=== PATIENT | male | born 1945 | race Caucasian/White ===

== ENCOUNTER → 2017-07-24 | Outpatient (CLI) | payer MEDICARE, BC | END | disposition home or self-care (01) | LOC: US 12:53 | DX: E04.1 Nontoxic single thyroid nodule (principal) | CPT/HCPCS: 10022; 60300; 76942; 88173; 88305 ==

== ENCOUNTER 2019-11-08 19:29 | Inpatient (IN) | payer MEDICARE, BC ==
[~2019-11-08] VITALS: Ht 182.9 cm; Wt 120.0 kg
[2019-11-08] MEDS ORDERED: CINN500C2 PO (20:49)
[2019-11-08] MEDS ORDERED: APIX5TAB PO (20:49)
[2019-11-08] MEDS ORDERED: GABA600T7 PO (20:49)
[2019-11-08] MEDS ORDERED: ATOR40TA59 PO (20:49)
[2019-11-08] MEDS ORDERED: MULT-505 PO (20:49)
[2019-11-08] MEDS ORDERED: LEVO50TA PO (20:49)
[2019-11-08] MEDS ORDERED: LISI-334 PO (20:49)
[2019-11-08] MEDS ORDERED: OMEG1CAP6 PO (20:49)
[2019-11-08] MEDS ORDERED: MEXI150C PO (20:49)
[2019-11-08] MEDS ORDERED: CARV25TA2 PO (20:49)
[2019-11-08 20:58] VITALS: BP 146/69
[2019-11-08] MEDS ORDERED: ONDANSETRON PF 4 MG/2 ML VIAL. IVP PRN (21:00)
[2019-11-08] MEDS ORDERED: MORPHINE SULFATE 4 MG/ML VIAL. IV PRN (21:00)
--- NOTE | 2019-11-08 22:00 | NUR ---
pt. administered 3.5 units of Novolog through his insulin pump after his blood sugar was checked. Blood sugar was 182.
[2019-11-08] MEDS: MORPHINE SULFATE 4 MG/ML VIAL. IV PRN (22:14)
[2019-11-08] MEDS: IV DEXTROSE 5 %-0.45 % NACL 1,000 ML IV SCH (22:14)
[2019-11-08 23:00] VITALS: BP 101/42
--- NOTE | 2019-11-08 23:16 | NUR ---
The patient, YOVANI FAUST, 74 y/o, M admitted by NIKKO BEASLEY MD, was given written information regarding hospital policies, unit procedures and contact persons. Pt. arrived on unit at 1850 by EMS. Call light placed within reach and bed in lowest position. Pt. is comfortable with his pain level. Will continue to monitor. Valuables were left in patient's room. Pt. refused to place any valuables with security.
[2019-11-09] VITALS (12 sets, daily range): BP systolic 74–141; BP diastolic 44–59
[2019-11-09 05:51] LABS: BASO % 0 % (0-3); EOS % 0 % (0-3); HEMATOCRIT 32.1 % (39.0-53.0); HEMOGLOBIN 10.9 g/dL (13.0-17.5); LYMPH # 0.7 x10^3/uL (1.0-4.8); LYMPH % 7 % (24-48); MEAN CORPUSCULAR HEMOGLOBIN 31 pg (25-35); MEAN CORPUSCULAR HGB CONC 34 g/dL (31-37); MEAN CORPUSCULAR VOLUME 92 fL (79-100); MONO # 0.6 x10^3/uL (0.0-1.1); MONO % 6 % (0-9); NEUT # 8.9 x10^3/uL (1.8-7.7); NEUT % 87 % (31-73); PLATELET COUNT 187 x10^3/uL (140-400); RED CELL DISTRIBUTION WIDTH 14.4 % (11.5-14.5); WHITE BLOOD COUNT 10.3 x10^3/uL (4.0-11.0)
[2019-11-09 06:06] LABS: ALBUMIN 2.8 g/dL (3.4-5.0); ALBUMIN/GLOBULIN RATIO 0.9 (1.0-1.7); CALCIUM 8.2 mg/dL (8.5-10.1); CREATININE 1.9 mg/dL (0.7-1.3); GFR 34.6; POTASSIUM 4.5 mmol/L (3.5-5.1); TOTAL BILIRUBIN 0.3 mg/dL (0.2-1.0)
[2019-11-09] MEDS: MORPHINE SULFATE 4 MG/ML VIAL. IV PRN ×2 (09:20→13:27)
[2019-11-09] MEDS ORDERED: IV NORMAL SALINE 500ML BAG 500 ML IV ONE (10:00)
[2019-11-09] MEDS ORDERED: PIPERACILLIN/TAZOBACTAM 2.25 GM in IV NORMAL SALINE 50ML 50 ML IV SCH ×3 (10:00)
[2019-11-09] MEDS ORDERED: DEXTROSE 50% 25 GM / 50ML DISP.SYRIN. IV PRN (10:15)
--- NOTE | 2019-11-09 10:16 | PN ---
DATE: 11/09/2019 SUBJECTIVE: The patient is resting, slightly propped up in bed, in no apparent respiratory distress. His right knee is in a splint. Pain is well controlled with morphine. His COVID test is not yet available. When I questioned him today, he said that Dr. Hartley has started him on a new medication, but he did not know the name of the medication. He stated that his pacemaker was interrogated about 2 weeks ago, but did not know the result. Has had an echocardiogram done on Sunday, but again he does not know the outcome of that. PHYSICAL EXAMINATION: GENERAL: When I saw him this morning, he looked somewhat pale. No jaundice, cyanosis or thyromegaly. No jugular venous distention. No lower limb edema. VITAL SIGNS: His heart rate was 65, blood pressure 100/47, temperature was 98.1, respiratory rate was 18 and oxygen saturation was 97%. HEAD, EYES, EARS, NOSE AND THROAT: Normocephalic, atraumatic. NECK: Supple. HEART: Showed normal first and second heart sounds with no gallop, rub or murmur. CHEST: Clear to auscultation. No crepitation or rhonchi. ABDOMEN: Distended, soft, nontender. NEUROLOGIC: He was grossly intact. EXTREMITIES: He has right below-knee amputation and his right knee is in a splint. His intake and output are incompletely recorded. LABORATORY DATA: His lab work this morning showed a white cell count of 10,300, hemoglobin 11, hematocrit 32, MCV 92, and platelet count of 187,000 with normal manual differential. Serum sodium was 141, potassium 4.5, chloride 105, bicarbonate 23, anion gap of 13, BUN 49, creatinine 1.9, estimated GFR was 34 mL per minute. His glucose was 200, calcium was 8.2. Total bilirubin, AST, ALT, alkaline phosphatase were normal. Total protein 6, albumin was 2.8. ASSESSMENT: This is a 74-year-old who fell in the Emergency Room on his way out, sustained open right distal femur fracture. The patient has multiple other medical problems including: A. Hypertension. B. Hyperlipidemia. C. Hypothyroidism. D. Peripheral neuropathy of both lower extremities. E. Coronary artery disease. F. Sick sinus syndrome, status post AICD; gastroesophageal reflux disease; chronic renal disease; osteomyelitis of right lower extremity, status post right below-knee amputation. He is also known to have trigeminal neuralgia. He has also acute on chronic kidney injury. His creatinine has risen from baseline of 1.4-1.5 to 2. PLAN: To continue with IV fluid, continue with pain management. Continue to monitor his blood sugar and we might have to switch him off his insulin infusion pump. Start him on insulin sliding scale and I have consulted the solutions consultant as he felt dizzy and fell while on his way back. There is no documentation that his orthostatics were measured in the Emergency Room and also start him on IV antibiotic, has an open distal femur fracture and consulted Infectious Disease. I did start him on linezolid 600 mg IV twice a day as well as Zosyn 2.25 grams IV q. 8 hourly. NIKKO BEASLEY MD DR: PETER/rossi JOB#: [id number] / [id number]
[2019-11-09 11:01] LABS: % BANDS 1 % (0-9); % LYMPHS 5 % (24-48); % MONOS 2 % (0-10); % SEGS 92 % (35-66); PLT ESTIMATE ADEQUATE (ADEQUATE)
--- NOTE | 2019-11-09 11:15 | HP ---
ADMIT DATE: 11/08/2019 HISTORY OF PRESENT ILLNESS: The patient is a 74-year-old male patient who presented to the Emergency Room of [facility] with a complaint of dizziness and lightheadedness. He was brought by EMS from home. The patient said he was in his garage workshop doing some wood work. He was sitting on a stool there. The patient said he was there for about 45 minutes. When he stood up from the stool, he became dizzy and lightheaded. He feels like he might pass out ____. The patient denied any chest pain or any headache. The patient then went inside the house. He was sweating profusely. The EMS was then called. They checked blood sugar, it was normal. The patient denied any headache. No weakness or numbness. No slurring of speech. By the time he got to the Emergency Room, he felt much better. He stated that in the workshop area in the garage was hotter than inside his house. He was evaluated in the Emergency Room, has had lab work which showed that his lab works are all within acceptable range. His blood pressure apparently was within normal range. He was given IV fluid and felt much better. He had a CT scan of his head that did not show any acute problem, had no neurological deficit. In the Emergency Room, has no chest pain or trouble breathing and a decision was made to discharge him home to follow with his primary care physician. He declined a wheelchair assistance and he and his was walking down the hallway and then tripped on his shoes and fell down on his knees. The patient has right below-knee amputation, has a prosthesis on. The patient was taken back to his room and he stated that he cannot straighten his right knee. The patient complained of pain in his right knee and left knee. Denied any upper extremity pain. No head or neck injury. On examining him, there was superficial skin contusion on his left knee. The patient can flex and extend his left knee without any problem. Examination of the right knee showed patellar deformity distracting distally. The patient cannot straighten his right knee. His distal femur was deformed, but no open wound. X-ray of both knees showed displaced fracture of the right distal femur on the right side and Dr. Garza was informed, who recommended transferring the patient to [facility]. He was swabbed for COVID test to be available before his surgery; however, it is still pending at the time of this dictation. The patient was admitted to [facility], kept n.p.o. from midnight, started on IV fluid and IV morphine as well as Zofran. He has an insulin infusion pump and we will do Accu-Cheks every 6 hours. PAST MEDICAL HISTORY: Significant for hypertension, hyperlipidemia, hypothyroidism, peripheral neuropathy of both lower extremities, coronary artery disease. He is also known to have sick sinus syndrome status post AICD, coronary artery disease status post stent deployment, gastroesophageal reflux disease, chronic renal disease, osteomyelitis of his right lower extremity requiring amputation. He is also known to have trigeminal neuralgia. PAST SURGICAL HISTORY: Significant for C5-C7 spinal surgery, status post cervical spine fusion x 2, status post insulin pump placement, thyroidectomy, and right below-knee amputation. ALLERGIES: HE IS ALLERGIC TO CARBAMAZEPINE AND OXAPROZIN. FAMILY HISTORY: He is only child. His father by committing suicide, however, he was known to have severe COPD and alcoholism. Mother at age of 75 because of brain tumor. SOCIAL HISTORY: He is , has 1 daughter. He does not smoke, drink alcohol or use any recreational drugs. REVIEW OF SYSTEMS: As per history of present illness. MEDICATIONS: He is currently on following medications: He is on apixaban 5 mg twice a day, atorvastatin calcium 40 mg at bedtime, omega-3 fatty acid 1000 mg twice a day, carvedilol 25 mg once a day, lisinopril 20 mg once a day, gabapentin 600 mg 3 times a day, furosemide 20 mg once a day, ranitidine 300 mg twice a day, Wolbach Thyroid he is now actually on levothyroxine 50 mcg once a day, multivitamin 1 tablet once a day, cinnamon bark 1000 mg once a day. PHYSICAL EXAMINATION: GENERAL: On arrival to the Emergency Department, he looked well and was clearly in no apparent respiratory distress, pale, but no jaundice, cyanosis or thyromegaly. No jugular venous distention. No lower limb edema. VITAL SIGNS: His heart rate was 72, blood pressure was 171/59, temperature was 97.5, respiratory rate was 18, and oxygen saturation was 98% on room air. HEAD, EYES, EARS, NOSE AND THROAT: Showed normocephalic, atraumatic. NECK: Supple. CARDIAC: Normal first and second heart sounds. No gallop or murmur. CHEST: Clear to auscultation. No crepitation or rhonchi. ABDOMEN: Distended, soft, nontender. NEUROLOGIC: He was awake, alert, responding appropriately. All cranial nerves intact. He moves upper extremities without difficulty. He was able to flex his left knee without difficulty. He was unable to flex his right knee with obvious deformity. LABORATORY DATA: X-ray of his right knee showed closed fracture of the right distal femur. His other lab work showed a white cell count 6300, hemoglobin 12.7, hematocrit 37.4, MCV 92 and platelet count 205,000 with normal manual differential. His serum sodium was 138, potassium 4.5, chloride 102, bicarbonate 26, anion gap of 10, BUN 44, creatinine 2, estimated GFR was 32 mL per minute. His glucose 137, calcium was 8.5, magnesium 2. Total bilirubin, AST, ALT, alkaline phosphatase were normal. His total protein was 6.8, albumin was 3.4. His beta natriuretic peptide was 625 and troponin was less than 0.017. His prothrombin time was 10.9, INR 1.1, APTT was 25. X-ray of his left knee showed normal alignment, no fracture, mild tricompartmental knee degenerative changes. On evaluation of knee joint, effusion is degraded because of positioning in the lateral view, vascular calcification, anterior knee soft tissue swelling. His right knee showed acute comminuted right distal femur fracture with posterior displacement and angulation of the distal fragment, potentially open fracture, extensive vascular calcification, postoperative changes, [id number] amputation, right knee degenerative changes. IMPRESSION: The patient has acute comminuted right distal femur fracture, right below-knee amputation, left anterior knee soft tissue swelling and therefore, the patient was admitted to [facility], was kept n.p.o. from midnight. We did consult Dr. Garza, started on IV fluid and IV morphine as well as Zofran. NIKKO BEASLEY MD DR: PETER/rossi JOB#: [id number] / [id number]
[2019-11-09] MEDS: PIPERACILLIN/TAZOBACTAM 2.25 GM in IV NORMAL SALINE 50ML 50 ML IV SCH ×3 (11:26→22:31)
[2019-11-09] MEDS: IV DEXTROSE 5 %-0.45 % NACL 1,000 ML IV SCH (11:28)
[2019-11-09] MEDS: INSULIN LISPRO 300 UNITS/3 ML VIAL. SQ SCH ×2 (12:00→17:00)
--- NOTE | 2019-11-09 13:02 | PDOC2 ---
CONSULT Date of Consult Date of Consult DATE: 11/09/19 TIME: 12:56 Reason for Consult Reason for Consult: Right distal femur fracture Referring Physician Referring Physician: Erick Identification/Chief Complaint Chief Complaint Right knee pain Source Source: Patient History of Present Illness Reason for Visit: Patient was being evaluated in [facility] emergency department yesterday for some dizziness, and upon his discharge he tripped and fell, noting immediate pain and deformity at his right distal femur region, x-rays were taken which revealed a intra-articular distal femoral femoral fracture. He was transferred here for definitive management. He is complaining of knee pain, it is tolerable in the splint. It was worse with any attempted ambulation or movement of his knee. No radiation of the pain, he feels it diffusely around his knee. Denies hitting anything else on his way down or preceding symptoms right before the fa ll. Past Medical History Cardiovascular: No pertinent hx, CAD Pulmonary: No pertinent hx GI: No pertinent hx Musculoskeletal: Osteoarthritis ENT: Sincusitis Endocrine: Diabetes, Hypothyroidism Past Surgical History Past Surgical History: Other (Coronary stenting, pacemaker, cervical fusion, multiple I&D's of foot wounds, right below knee amputation with myself in 2016) Family History Family History: Heart Disease Social History No ALCOHOL: none Lives: with Family Current Medications Current Medications Current Medications Morphine Sulfate (Morphine Sulfate) 4 mg Q4HRS PRN IV PAIN; Start 11/08/19 at 21:00; Stop 11/08/19 at 21:27; Status DC Dextrose/Sodium Chloride 1,000 ml @ 75 mls/hr [id number] IV Last administered on 11/09/19at 11:28; Start 11/08/19 at 21:00 Ondansetron HCl (Zofran) 4 mg PRN Q6HRS PRN IVP NAUSEA/VOMITING; Start 11/08/19 at 21:00 Morphine Sulfate (Morphine Sulfate) 4 mg PRN Q4HRS PRN IV PAIN Last administered on 11/09/19at 09:20; Start 11/08/19 at 21:30 Piperacillin Sod/ Tazobactam Sod 2.25 gm/Sodium Chloride 50 ml @ 100 mls/hr Q8H IV ; Start 11/09/19 at 10:00; Status Cancel Linezolid/Dextrose 300 ml @ 300 mls/hr Q12HR IV Last administered on 11/09/19at 12:50; Start 11/09/19 at 11:00 Sodium Chloride 500 ml @ 500 mls/hr 1X ONCE IV Last administered on 11/09/19at 11:27; Start 11/09/19 at 10:00; Stop 11/09/19 at 10:59; Status DC Piperacillin Sod/ Tazobactam Sod 2.25 gm/Sodium Chloride 50 ml @ 100 mls/hr Q8H IV ; Start 11/09/19 at 10:00; Status Cancel Piperacillin Sod/ Tazobactam Sod 2.25 gm/Sodium Chloride 50 ml @ 100 mls/hr Q8H IV ; Start 11/09/19 at 10:00; Status Cancel Insulin Human Lispro (HumaLOG) 0-7 UNITS TIDWMEALS SQ ; Start 11/09/19 at 12:00 Dextrose (Dextrose 50%-Water Syringe) 12.5 gm PRN Q15MIN PRN IV SEE COMMENTS; Start 11/09/19 at 10:15 Piperacillin Sod/ Tazobactam Sod 2.25 gm/Sodium Chloride 50 ml @ 100 mls/hr Q8HRS IV Last administered on 11/09/19at 11:26; Start 11/09/19 at 10:00 Mexiletine HCl (Mexitil) 150 mg BID PO ; Start 11/09/19 at 21:00; Status UNV Active Scripts Active Reported Carvedilol 25 Mg Tablet 25 Mg PO BIDWMEALS Cinnamon (Cinnamon Bark) 500 Mg Capsule 1,000 Mg PO DAILY Once Daily (Multivitamin) 1 Each Tablet 1 Tab PO DAILY 30 Days Fish Oil 1,000 Mg Capsule (Irwin-3 Fatty Acids/Fish Oil) 1 Each Capsule 2 Each PO BID Gabapentin 600 Mg Tablet 600 Mg PO TID Synthroid (Levothyroxine Sodium) 50 Mcg Tablet 1 Tab PO DAILY Atorvastatin Calcium 40 Mg Tablet 1 Tab PO DAILY Lisinopril 20 Mg Tablet 1 Tab PO DAILY Mexiletine Hcl 150 Mg Capsule 150 Mg PO BID Eliquis (Apixaban) 5 Mg Tablet 5 Mg PO BID Allergies Allergies: Coded Allergies: oxaprozin (Verified Allergy, Unknown, 11/08/19) ROS General: No: Chills, Night Sweats, Fatigue, Malaise, Appetite, Other PSYCHOLOGICAL ROS: No: Anxiety, Behavioral Disorder, Concentration difficultie, Decreased libido, Depression, Disorientation, Hallucinations, Hostility, Irritablity, Memory difficulties, Mood Swings, Obsessive thoughts, Physical abuse, Sexual abuse, Sleep disturbances, Suicidal ideation, Other Eyes: No Blurry vision, No Decreased vision, No Double vision, No Dry eyes, No Excessive tearing, No Eye Pain, No Itchy Eyes, No Loss of vision, No Photophobia, No Scotomata, No Uses contacts, No Uses glasses, No Other HEENT: No: Heacaches, Visual Changes, Hearing change, Nasal congestion, Nasal discharge, Oral lesions, Sinus pain, Sore Throat, Epistaxis, Sneezing, Snoring, Tinnitus, Vertigo, Vocal changes, Other ALLERGY AND IMMUNOLOGY: No: Hives, Insect Bite Sensitivity, Itchy/Watery Eyes, Nasal Congestion, Post Nasal Drip, Seasonal Allergies, Other Hematological and Lymphatic: No: Bleeding Problems, Blood Clots, Blood Transfusions, Brusing, Night Sweats, Pallor, Swollen Lymph Nodes, Other ENDOCRINE: No: Breast Changes, Galactorrhea, Hair Pattern Changes, Hot Flashes, Malaise/lethargy, Mood Swings, Palpitations, Polydipsia/polyuria, Skin Changes, Temperature Intolerance, Unexpected Weight Changes, Other Respiratory: No: Cough, Hemoptysis, Orthopnea, Pleuritic Pain, Shortness of breath, SOB with excertion, Sputum Changes, Stridor, Tachypnea, Wheezing, Other Cardiovascular: No Chest Pain, No Palpitations, No Orthopnea, No Paroxysmal Noc. Dyspnea, No Edema, No Lt Headedness, No Other Gastrointestinal: No Nausea, No Vomiting, No Abdominal Pain, No Diarrhea, No Constipation, No Melena, No Hematochezia, No Other Genitourinary: No Dysuria, No Frequency, No Incontinence, No Hematuria, No Retention, No Discharge, No Urgency, No Pain, No Flank Pain, No Other, No , No , No , No , No , No , No Musculoskeletal: Yes Joint Pain, Yes Muscle Pain Neurological: Yes Gait Disturbance Skin: No Dry Skin, No Eczema, No Hair Changes, No Lumps, No Mole Changes, No Mottling, No Nail Changes, No Pruritus, No Rash, No Skin Lesion Changes, No Other, No Acne Physical Exam General: Alert, Oriented X3 HEENT: Atraumatic, EOMI Lungs: Other (Respirations are unlabored with symmetric chest rise) Heart: Regular rate Abdomen: Soft, No tenderness Extremities: No edema, Normal pulses Skin: No breakdown Neuro: Normal speech, Strength at 5/5 X4 ext, Normal tone Psych/Mental Status: Mental status NL, Mood NL MUSCULOSKELETAL: Other (He has fullness and ecchymosis around his knee. Skin overlying the fracture is intact without any blanching or erythema.) Vitals VITALS Vital Signs Date Time Temp Pulse Resp B/P (MAP) Pulse Ox O2 Delivery O2 Flow Rate FiO2 11/09/19 11:00 98.1 66 18 101/46 (64) 96 Room Air 98.1 Labs Labs Laboratory Tests Test 11/09/19 04:00 11/09/19 07:33 White Blood Count 10.3 x10^3/uL (4.0-11.0) Red Blood Count 3.50 x10^6/uL (4.30-5.70) Hemoglobin 10.9 g/dL (13.0-17.5) Hematocrit 32.1 % (39.0-53.0) Mean Corpuscular Volume 92 fL (79-100) Mean Corpuscular Hemoglobin 31 pg (25-35) Mean Corpuscular Hemoglobin Concent 34 g/dL (31-37) Red Cell Distribution Width 14.4 % (11.5-14.5) Platelet Count 187 x10^3/uL (140-400) Neutrophils (%) (Auto) 87 % (31-73) Lymphocytes (%) (Auto) 7 % (24-48) Monocytes (%) (Auto) 6 % (0-9) Eosinophils (%) (Auto) 0 % (0-3) Basophils (%) (Auto) 0 % (0-3) Neutrophils # (Auto) 8.9 x10^3/uL (1.8-7.7) Lymphocytes # (Auto) 0.7 x10^3/uL (1.0-4.8) Monocytes # (Auto) 0.6 x10^3/uL (0.0-1.1) Eosinophils # (Auto) 0.0 x10^3/uL (0.0-0.7) Basophils # (Auto) 0.0 x10^3/uL (0.0-0.2) Segmented Neutrophils % 92 % (35-66) Band Neutrophils % 1 % (0-9) Lymphocytes % 5 % (24-48) Monocytes % 2 % (0-10) Platelet Estimate Adequate (ADEQUATE) Sodium Level 141 mmol/L (136-145) Potassium Level 4.5 mmol/L (3.5-5.1) Chloride Level 105 mmol/L (98-107) Carbon Dioxide Level 23 mmol/L (21-32) Anion Gap 13 (6-14) Blood Urea Nitrogen 49 mg/dL (8-26) Creatinine 1.9 mg/dL (0.7-1.3) Estimated GFR (Cockcroft-Gault) 34.6 BUN/Creatinine Ratio 26 (6-20) Glucose Level 200 mg/dL (70-99) Calcium Level 8.2 mg/dL (8.5-10.1) Total Bilirubin 0.3 mg/dL (0.2-1.0) Aspartate Amino Transf (AST/SGOT) 18 U/L (15-37) Alanine Aminotransferase (ALT/SGPT) 17 U/L (16-63) Alkaline Phosphatase 78 U/L (46-116) Total Protein 6.0 g/dL (6.4-8.2) Albumin 2.8 g/dL (3.4-5.0) Albumin/Globulin Ratio 0.9 (1.0-1.7) Glucose (Fingerstick) 280 mg/dL (70-99) Laboratory Tests Test 11/09/19 04:00 11/09/19 07:33 White Blood Count 10.3 x10^3/uL (4.0-11.0) Red Blood Count 3.50 x10^6/uL (4.30-5.70) Hemoglobin 10.9 g/dL (13.0-17.5) Hematocrit 32.1 % (39.0-53.0) Mean Corpuscular Volume 92 fL (79-100) Mean Corpuscular Hemoglobin 31 pg (25-35) Mean Corpuscular Hemoglobin Concent 34 g/dL (31-37) Red Cell Distribution Width 14.4 % (11.5-14.5) Platelet Count 187 x10^3/uL (140-400) Neutrophils (%) (Auto) 87 % (31-73) Lymphocytes (%) (Auto) 7 % (24-48) Monocytes (%) (Auto) 6 % (0-9) Eosinophils (%) (Auto) 0 % (0-3) Basophils (%) (Auto) 0 % (0-3) Neutrophils # (Auto) 8.9 x10^3/uL (1.8-7.7) Lymphocytes # (Auto) 0.7 x10^3/uL (1.0-4.8) Monocytes # (Auto) 0.6 x10^3/uL (0.0-1.1) Eosinophils # (Auto) 0.0 x10^3/uL (0.0-0.7) Basophils # (Auto) 0.0 x10^3/uL (0.0-0.2) Segmented Neutrophils % 92 % (35-66) Band Neutrophils % 1 % (0-9) Lymphocytes % 5 % (24-48) Monocytes % 2 % (0-10) Platelet Estimate Adequate (ADEQUATE) Sodium Level 141 mmol/L (136-145) Potassium Level 4.5 mmol/L (3.5-5.1) Chloride Level 105 mmol/L (98-107) Carbon Dioxide Level 23 mmol/L (21-32) Anion Gap 13 (6-14) Blood Urea Nitrogen 49 mg/dL (8-26) Creatinine 1.9 mg/dL (0.7-1.3) Estimated GFR (Cockcroft-Gault) 34.6 BUN/Creatinine Ratio 26 (6-20) Glucose Level 200 mg/dL (70-99) Calcium Level 8.2 mg/dL (8.5-10.1) Total Bilirubin 0.3 mg/dL (0.2-1.0) Aspartate Amino Transf (AST/SGOT) 18 U/L (15-37) Alanine Aminotransferase (ALT/SGPT) 17 U/L (16-63) Alkaline Phosphatase 78 U/L (46-116) Total Protein 6.0 g/dL (6.4-8.2) Albumin 2.8 g/dL (3.4-5.0) Albumin/Globulin Ratio 0.9 (1.0-1.7) Glucose (Fingerstick) 280 mg/dL (70-99) Images Images X-rays were interpreted by myself. Report is reviewed. Intra-articular distal femoral fracture on the right side. Assessment/Plan Assessment/Plan Closed right intra-articular distal femoral fracture I did discuss with Aaorn the risks, benefits, alternatives to proceeding with operative intervention in the form of a plate and screws. We talked about bleeding, infection, possible sequela of infection, nonunion, need for additional surgery, pain, expected rehab, among others. He elected to proceed. MERLINE THOMPSON II, MD Nov 09, 2019 13:02
[2019-11-09] MEDS ORDERED: IV RINGERS,LACTATED 1000ML 1,000 ML IV SCH (14:08)
[2019-11-09] MEDS ORDERED: PROCHLORPERAZINE 10 MG/2 ML VIAL. IV PRN (14:15)
[2019-11-09] MEDS ORDERED: BUPIVACAINE MPF 0.5% 30 ML VIAL. ONE (14:23)
[2019-11-09] MEDS ORDERED: LIDOCAINE 1% Multi-Dose 20 ML VIAL. ONE (14:23)
[2019-11-09] MEDS ORDERED: PROPOFOL 10 MG/ML (20ML) VIAL. IV ONE ×2 (14:44)
[2019-11-09] MEDS ORDERED: LIDOCAINE 2% PF 5 ML VIAL. ONE (14:44)
[2019-11-09] MEDS ORDERED: SEVOFLURANE 61 TO 120 MINUTES. IH ONE (14:45)
[2019-11-09] MEDS ORDERED: PHENYLEPHRINE in 0.9% NACL PF 1 MG/10 ML SYRINGE. IV ONE (14:45)
[2019-11-09] MEDS ORDERED: ceFAZolin 2GM PREMIX 2 GM/50 ML BAG IV ONE (15:00)
[2019-11-09] MEDS ORDERED: MORPHINE SULFATE 5 MG, KETOROLAC 30MG VIAL 30 MG, ROPIVacaine 0.5% PF 60 ML, EPINEPHrin... INT ART ONE (15:00)
--- NOTE | 2019-11-09 15:15 | NUR ---
Patient left floor for surgery at approximately 1410
[2019-11-09] MEDS ORDERED: PHENYLEPHRINE 10 MG/ML VIAL. ONE (15:35)
[2019-11-09] MEDS ORDERED: ONDANSETRON PF 4 MG/2 ML VIAL. ONE (16:09)
--- NOTE | 2019-11-09 16:41 | PDOC4 ---
Operative Note Operative Note Date of procedure: 11/09/2019 Surgeon: Sarkis Thompson Staking Press Operator: Kwadwo Emery Preoperative diagnosis: Closed right intra-articular distal femoral fracture Postoperative diagnosis: Same Anesthesia: General Procedure performed: Open reduction internal fixation right intra-articular distal femoral fracture Complications: none Blood loss: 250mL (80mL was hematoma) Components inserted: [employer] Nephew lateral distal femoral locking plate Findings: Acute fracture Reason for procedure: Patient is a very pleasant gentleman whom I have operated on in the past and had a ground-level fall yesterday. Please see my consult note for full details. He and I discussed the risks, benefits, and alternatives to surgery and he elected to proceed. Scription of procedure: Patient was greeted in the preoperative area by myself or the correct extremities verified and marked. He was taken to the operative suite, his antibiotics were started as he was brought back. Once in the operating, he had successful induction of a general anesthetic and was then transferred gently supine to the operating table with a bump under his hip, he was secured to the bed with all pressure points padded. Nonsterile tourniquet was taped in place to his right upper thigh. Right lower extremity was then prepped and draped in her usual sterile fashion we conducted our standard preoperative timeout. After this, I palpated for surface anatomy and tricia a line on the skin for my planned incision referencing his lateral epicondyle and femoral shaft. Skin was incised with a scalpel after tourniquet was insufflated to 250 mmHg, which occurred after the limb was exsanguinated with an Esmarch. I dissected subcutaneous tissue with electrocautery, cauterizing bleeders as they were encountered. I incised the IT band in line with the skin incision. I placed my self-retaining retractors, and elevated the vastus lateralis off of the lateral intermuscular septum. He had a large amount of fracture hematoma and muscle damage apparent. I used a plastic suction device to remove the hematoma. After this, I had an inventory assistant pulled traction on the leg while I manipulated it as well to achieve my reduction. I then placed in size my plate against bone, confirming appropriate reduction and hardware position under biplanar fluoroscopy. After this, I made a stab incision over the medial e picondyle, used hemostat to spread down to bone and then placed my large clamp from the plate to the stab incision, applying compression. I then secured the plate to the articular fragments distally and placed 2 nonlocking screws and then locking screws. I then used the periarticular clamp to pull traction to help facilitate reduction, after I confirmed that this maneuver worked well, my inventory assistant did this and then I secured the plate to the shaft proximally. I then placed another locking screw followed by 1 more nonlocking screw proximal to the fracture site. It should be noted that I did have a bump under his distal femoral region but not his knee for this case. After this, I took my final images and was satisfied with hardware position and fracture reduction. The clamp was removed. The operative field was thoroughly irrigated. Tourniquet was let down and hemostasis was ensured. I placed a 1/8 inch Hemovac exiting superolaterally around his knee for this procedure. I then closed the fascia with [id number] #1 Vicryl followed by inverted interrupted 2-0 for subcutaneous tissue and va for skin. I injected local anesthetic mixture into the dev-incisional soft tissues. All counts correct x2 prior to wound closure. At the conclusion, the leg was cleansed and dried and Xeroform followed by gauze, ABDs, soft roll and an Yosvany wrap were applied.. Patient tolerated surgery well. The conclusion, he is awake from anesthesia transferred gently supine to the hospital bed and taken to the PACU in stable and extubated condition. Postoperative plan is to readmit him to the floor under the care of the hospitalist. I will follow along. He will be nonweightbearing right lower extremity. SARKIS THOMPSON II, MD Nov 09, 2019 16:41
--- NOTE | 2019-11-09 18:56 | CONS ---
DATE OF CONSULTATION: 11/09/2019 REASON FOR CONSULTATION: History of ischemic cardiomyopathy. HISTORY OF PRESENT ILLNESS: The patient is a pleasant 74-year-old man, who came to the hospital in the setting of a femur fracture. He underwent successful surgery. Cardiology was asked to help with his care as he has an extensive history. The patient apparently was on his bathroom commode and felt significant sweats and weakness yesterday morning, subsequently was seen at the ER at [facility]. He was advised to just follow up with his primary care physician and hazard waste handler as a workup there was unremarkable except for maybe some dehydration. While he was walking out of the hospital, he fell and he thinks this was related to a prosthesis that is not working well in his foot. There was no preceding aura, palpitations or chest pain. It is notable that when he was on his stool at home, he did have some diaphoresis and dyspnea, but no obvious EKG changes were noted according to report from [facility]. Of note, the patient was recently started on mexiletine therapy due to frequent PVCs and decreasing BiV pacing burden. The patient otherwise has no specific cardiovascular issues. PAST MEDICAL HISTORY: 1. Combined ischemic and nonischemic cardiomyopathy, status post AUTOMOTIVE DETAILER-D with a [employer] device. 2. Coronary artery disease, status post PCI in the past. 3. PAD. 4. Chronic kidney disease. 5. Hypertension. 6. History of atrial fibrillation, paroxysmal. 7. TIA. SOCIAL HISTORY: He is , he has one daughter. No alcohol, tobacco or illicit drug use. FAMILY HISTORY: Noncontributory. ALLERGIES: CARBAMAZEPINE AND DAYPRO. REVIEW OF SYSTEMS: Negative unless otherwise mentioned above in the HPI. PHYSICAL EXAMINATION: GENERAL: He is sedated, but responding appropriately. HEAD AND NECK: Unremarkable. CARDIAC: Regular rate and rhythm without any murmurs, rubs or gallops. LUNGS: Clear to auscultation. ABDOMEN: Soft, nontender and nondistended. EXTREMITIES: No clubbing, cyanosis or edema. NEUROLOGIC: No focal deficits. MUSCULOSKELETAL: Recent orthopedic surgery to the right hip. DIAGNOSTIC STUDIES: Echocardiogram performed at [facility] on 11/07/2019 reveals normal LV systolic function. Cardiac rhythm evaluation of the [employer] device reveals frequent PVCs. MEDICATIONS: Current cardiovascular medications: Mexiletine 150 mg p.o. b.i.d. Prior cardiovascular medications at his last office visit: 1. Eliquis 5 mg p.o. b.i.d. 2. Atorvastatin 40 mg daily. 3. Carvedilol 25 mg p.o. b.i.d. 4. Lasix 40 mg as needed. 5. Lisinopril 20 mg daily. IMPRESSION: 1. Mechanical fall, likely secondary to prosthesis issues. 2. Mixed ischemic and nonischemic cardiomyopathy, status post AUTOMOTIVE DETAILER-D. 3. Coronary artery disease, status post PCI to the RCA and HYPERTRICHOLOGIST of the left circumflex with a pharmacological stress test in 2019, which did not show any ischemia. 4. Hypertension. 5. Dyslipidemia. 6. Diabetes. 7. Paroxysmal atrial fibrillation. RECOMMENDATIONS: 1. His near syncopal episode at home is of unclear etiology. Differential diagnosis would be hypotension from dehydration and/or hypoglycemia, although it appears that it was less likely to be hypoglycemia based on blood sugar of 130 that his reports. Unlikely related to severe arrhythmias, but we will have his device interrogated. 2. Hypertension. Currently hypotensive. We would continue to hold his medications. 3. Dyslipidemia. Continue statin when cleared by Surgery. 4. History of paroxysmal atrial fibrillation, previously on anticoagulation, and we will await surgical recommendations regarding the timing of reinitiation of anticoagulation. He recently had an echocardiogram, which was unremarkable. No further cardiovascular testing necessary while inhouse. We will await evaluation by [facility] for any arrhythmias. Thank you for this consultation. SUNDAR BOYER MD DR: CAROL/rossi JOB#: [id number] / [id number]
[2019-11-09] MEDS: MEXILETINE HCL 200 MG CAPSULE PO SCH (21:00)
[2019-11-09] MEDS: ONDANSETRON PF 4 MG/2 ML VIAL. IVP PRN (22:07)
[2019-11-10] VITALS (10 sets, daily range): BP systolic 77–115; BP diastolic 36–50
[2019-11-10] MEDS: IV DEXTROSE 5 %-0.45 % NACL 1,000 ML IV SCH ×2 (03:33→13:00)
[2019-11-10] MEDS ORDERED: IV NORMAL SALINE 1000ML BAG 1,000 ML IV ONE ×2 (04:00→08:00)
[2019-11-10 05:13] LABS: HEMATOCRIT 22.6 % (39.0-53.0); HEMOGLOBIN 7.7 g/dL (13.0-17.5); RED BLOOD COUNT 2.46 x10^6/uL (4.30-5.70); RED CELL DISTRIBUTION WIDTH 14.4 % (11.5-14.5); WHITE BLOOD COUNT 10.6 x10^3/uL (4.0-11.0)
[2019-11-10 06:00] LABS: ALBUMIN 2.6 g/dL (3.4-5.0); ALBUMIN/GLOBULIN RATIO 0.9 (1.0-1.7); CALCIUM 7.4 mg/dL (8.5-10.1); CREATININE 2.9 mg/dL (0.7-1.3); GFR 21.3; POTASSIUM 4.6 mmol/L (3.5-5.1); TOTAL BILIRUBIN 0.2 mg/dL (0.2-1.0); TOTAL PROTEIN 5.5 g/dL (6.4-8.2)
[2019-11-10] MEDS ORDERED: INSULIN LISPRO 300 UNITS/3 ML VIAL. SQ ONE (06:00)
[2019-11-10] MEDS: PIPERACILLIN/TAZOBACTAM 2.25 GM in IV NORMAL SALINE 50ML 50 ML IV SCH (06:41)
[2019-11-10] MEDS: INSULIN LISPRO 300 UNITS/3 ML VIAL. SQ SCH ×4 (07:42→17:00)
--- NOTE | 2019-11-10 07:43 | NUR ---
0800 dose of insulin non administered. Patient received 3 units for 6 am BS.
--- NOTE | 2019-11-10 07:54 | NUR ---
Verbal order from Dr. Suarez for bolus and bladder scan patient. If retention salcedo catheter to be put in.
[2019-11-10] MEDS ORDERED: NON FORMULARY ITEM (Mexiletine Hcl 150 MG) PO SCH (09:00)
[2019-11-10] MEDS ORDERED: NON FORMULARY ITEM (Cinnamon Bark (Cinnamon) 1,000 MG) PO SCH (09:00)
[2019-11-10] MEDS: MEXILETINE HCL 200 MG CAPSULE PO SCH (09:00)
[2019-11-10] MEDS: ATORVASTATIN CALCIUM 40 MG TABLET. PO SCH (09:00)
[2019-11-10] MEDS: LEVOTHYROXINE 50 MCG TABLET PO SCH (10:02)
[2019-11-10] MEDS: OMEGA-3 FATTY ACIDS/FISH OIL 1,000 MG CAPSULE. PO SCH ×2 (10:02→20:24)
[2019-11-10] MEDS: MULTIVITAMIN with MINERAL TABLET. PO SCH (10:02)
[2019-11-10] MEDS: GABAPENTIN 300 MG CAPSULE. PO SCH ×3 (10:08→20:24)
--- NOTE | 2019-11-10 10:28 | NUR ---
SW following. Discussed with RN, pt from home with . PT/OT ordered. SW will continue to follow.
--- NOTE | 2019-11-10 10:35 | PDOC ---
ORTHO PROGRESS NOTES Subjective Pain tolerable, had questions about resuming prosthesis Vitals Vital Signs Date Time Temp Pulse Resp B/P (MAP) Pulse Ox O2 Delivery O2 Flow Rate FiO2 11/10/19 07:00 98.0 79 18 82/36 (51) 91 Room Air 98.0 11/09/19 17:10 10 Labs Laboratory Tests Test 11/08/19 20:39 11/09/19 04:00 11/09/19 07:33 11/09/19 14:32 Glucose (Fingerstick) 182 mg/dL (70-99) 280 mg/dL (70-99) 227 mg/dL (70-99) White Blood Count 10.3 x10^3/uL (4.0-11.0) Red Blood Count 3.50 x10^6/uL (4.30-5.70) Hemoglobin 10.9 g/dL (13.0-17.5) Hematocrit 32.1 % (39.0-53.0) Mean Corpuscular Volume 92 fL (79-100) Mean Corpuscular Hemoglobin 31 pg (25-35) Mean Corpuscular Hemoglobin Concent 34 g/dL (31-37) Red Cell Distribution Width 14.4 % (11.5-14.5) Platelet Count 187 x10^3/uL (140-400) Neutrophils (%) (Auto) 87 % (31-73) Lymphocytes (%) (Auto) 7 % (24-48) Monocytes (%) (Auto) 6 % (0-9) Eosinophils (%) (Auto) 0 % (0-3) Basophils (%) (Auto) 0 % (0-3) Neutrophils # (Auto) 8.9 x10^3/uL (1.8-7.7) Lymphocytes # (Auto) 0.7 x10^3/uL (1.0-4.8) Monocytes # (Auto) 0.6 x10^3/uL (0.0-1.1) Eosinophils # (Auto) 0.0 x10^3/uL (0.0-0.7) Basophils # (Auto) 0.0 x10^3/uL (0.0-0.2) Segmented Neutrophils % 92 % (35-66) Band Neutrophils % 1 % (0-9) Lymphocytes % 5 % (24-48) Monocytes % 2 % (0-10) Platelet Estimate Adequate (ADEQUATE) Sodium Level 141 mmol/L (136-145) Potassium Level 4.5 mmol/L (3.5-5.1) Chloride Level 105 mmol/L (98-107) Carbon Dioxide Level 23 mmol/L (21-32) Anion Gap 13 (6-14) Blood Urea Nitrogen 49 mg/dL (8-26) Creatinine 1.9 mg/dL (0.7-1.3) Estimated GFR (Cockcroft-Gault) 34.6 BUN/Creatinine Ratio 26 (6-20) Glucose Level 200 mg/dL (70-99) Calcium Level 8.2 mg/dL (8.5-10.1) Total Bilirubin 0.3 mg/dL (0.2-1.0) Aspartate Amino Transf (AST/SGOT) 18 U/L (15-37) Alanine Aminotransferase (ALT/SGPT) 17 U/L (16-63) Alkaline Phosphatase 78 U/L (46-116) Total Protein 6.0 g/dL (6.4-8.2) Albumin 2.8 g/dL (3.4-5.0) Albumin/Globulin Ratio 0.9 (1.0-1.7) Test 11/09/19 16:13 11/09/19 16:58 11/09/19 18:00 11/10/19 00:02 Glucose (Fingerstick) 193 mg/dL (70-99) 204 mg/dL (70-99) 212 mg/dL (70-99) 253 mg/dL (70-99) Test 11/10/19 03:05 11/10/19 05:53 White Blood Count 10.6 x10^3/uL (4.0-11.0) Red Blood Count 2.46 x10^6/uL (4.30-5.70) Hemoglobin 7.7 g/dL (13.0-17.5) Hematocrit 22.6 % (39.0-53.0) Mean Corpuscular Volume 92 fL (79-100) Mean Corpuscular Hemoglobin 31 pg (25-35) Mean Corpuscular Hemoglobin Concent 34 g/dL (31-37) Red Cell Distribution Width 14.4 % (11.5-14.5) Platelet Count 174 x10^3/uL (140-400) Sodium Level 139 mmol/L (136-145) Potassium Level 4.6 mmol/L (3.5-5.1) Chloride Level 105 mmol/L (98-107) Carbon Dioxide Level 21 mmol/L (21-32) Anion Gap 13 (6-14) Blood Urea Nitrogen 56 mg/dL (8-26) Creatinine 2.9 mg/dL (0.7-1.3) Estimated GFR (Cockcroft-Gault) 21.3 BUN/Creatinine Ratio 19 (6-20) Glucose Level 293 mg/dL (70-99) Calcium Level 7.4 mg/dL (8.5-10.1) Total Bilirubin 0.2 mg/dL (0.2-1.0) Aspartate Amino Transf (AST/SGOT) 28 U/L (15-37) Alanine Aminotransferase (ALT/SGPT) 15 U/L (16-63) Alkaline Phosphatase 64 U/L (46-116) Total Protein 5.5 g/dL (6.4-8.2) Albumin 2.6 g/dL (3.4-5.0) Albumin/Globulin Ratio 0.9 (1.0-1.7) Glucose (Fingerstick) 267 mg/dL (70-99) Laboratory Tests Test 11/09/19 14:32 11/09/19 16:13 11/09/19 16:58 11/09/19 18:00 Glucose (Fingerstick) 227 mg/dL (70-99) 193 mg/dL (70-99) 204 mg/dL (70-99) 212 mg/dL (70-99) Test 11/10/19 00:02 11/10/19 03:05 11/10/19 05:53 Glucose (Fingerstick) 253 mg/dL (70-99) 267 mg/dL (70-99) White Blood Count 10.6 x10^3/uL (4.0-11.0) Red Blood Count 2.46 x10^6/uL (4.30-5.70) Hemoglobin 7.7 g/dL (13.0-17.5) Hematocrit 22.6 % (39.0-53.0) Mean Corpuscular Volume 92 fL (79-100) Mean Corpuscular Hemoglobin 31 pg (25-35) Mean Corpuscular Hemoglobin Concent 34 g/dL (31-37) Red Cell Distribution Width 14.4 % (11.5-14.5) Platelet Count 174 x10^3/uL (140-400) Sodium Level 139 mmol/L (136-145) Potassium Level 4.6 mmol/L (3.5-5.1) Chloride Level 105 mmol/L (98-107) Carbon Dioxide Level 21 mmol/L (21-32) Anion Gap 13 (6-14) Blood Urea Nitrogen 56 mg/dL (8-26) Creatinine 2.9 mg/dL (0.7-1.3) Estimated GFR (Cockcroft-Gault) 21.3 BUN/Creatinine Ratio 19 (6-20) Glucose Level 293 mg/dL (70-99) Calcium Level 7.4 mg/dL (8.5-10.1) Total Bilirubin 0.2 mg/dL (0.2-1.0) Aspartate Amino Transf (AST/SGOT) 28 U/L (15-37) Alanine Aminotransferase (ALT/SGPT) 15 U/L (16-63) Alkaline Phosphatase 64 U/L (46-116) Total Protein 5.5 g/dL (6.4-8.2) Albumin 2.6 g/dL (3.4-5.0) Albumin/Globulin Ratio 0.9 (1.0-1.7) Notes A and A dressing intact, not much out from drain Assessment and Plan resume LUIS Rene for AROM at knee likely will need placement MERLINE THOMPSON II, MD Nov 10, 2019 10:35
--- NOTE | 2019-11-10 10:38 | PDOC ---
Infectious Disease Note Vital Sign Vital Signs Vital Signs Date Time Temp Pulse Resp B/P (MAP) Pulse Ox O2 Delivery O2 Flow Rate FiO2 11/10/19 07:00 98.0 79 18 82/36 (51) 91 Room Air 98.0 11/09/19 17:10 10 Labs Lab Laboratory Tests Test 11/09/19 14:32 11/09/19 16:13 11/09/19 16:58 11/09/19 18:00 Glucose (Fingerstick) 227 mg/dL (70-99) 193 mg/dL (70-99) 204 mg/dL (70-99) 212 mg/dL (70-99) Test 11/10/19 00:02 11/10/19 03:05 11/10/19 05:53 Glucose (Fingerstick) 253 mg/dL (70-99) 267 mg/dL (70-99) White Blood Count 10.6 x10^3/uL (4.0-11.0) Red Blood Count 2.46 x10^6/uL (4.30-5.70) Hemoglobin 7.7 g/dL (13.0-17.5) Hematocrit 22.6 % (39.0-53.0) Mean Corpuscular Volume 92 fL (79-100) Mean Corpuscular Hemoglobin 31 pg (25-35) Mean Corpuscular Hemoglobin Concent 34 g/dL (31-37) Red Cell Distribution Width 14.4 % (11.5-14.5) Platelet Count 174 x10^3/uL (140-400) Sodium Level 139 mmol/L (136-145) Potassium Level 4.6 mmol/L (3.5-5.1) Chloride Level 105 mmol/L (98-107) Carbon Dioxide Level 21 mmol/L (21-32) Anion Gap 13 (6-14) Blood Urea Nitrogen 56 mg/dL (8-26) Creatinine 2.9 mg/dL (0.7-1.3) Estimated GFR (Cockcroft-Gault) 21.3 BUN/Creatinine Ratio 19 (6-20) Glucose Level 293 mg/dL (70-99) Calcium Level 7.4 mg/dL (8.5-10.1) Total Bilirubin 0.2 mg/dL (0.2-1.0) Aspartate Amino Transf (AST/SGOT) 28 U/L (15-37) Alanine Aminotransferase (ALT/SGPT) 15 U/L (16-63) Alkaline Phosphatase 64 U/L (46-116) Total Protein 5.5 g/dL (6.4-8.2) Albumin 2.6 g/dL (3.4-5.0) Albumin/Globulin Ratio 0.9 (1.0-1.7) Objective Assessment pt seen, consult dictated Plan Plan of Care / DEBORAH LEE MD Nov 10, 2019 10:38
[2019-11-10] MEDS: MEXILITINE PO SCH ×2 (11:30→20:26)
--- NOTE | 2019-11-10 11:36 | PDOC2 ---
CONSULT Date of Consult Date of Consult DATE: 11/10/19 TIME: 11:18 Reason for Consult Reason for Consult: DELVIS on CKD Source Source: Chart review, Patient History of Present Illness Reason for Visit: Pt is a 74-year-old CM who presented to the Emergency Room of [facility] with complaint of dizziness and lightheadedness. He was brought by EMS from home. The patient said he was in his garage workshop doing some wood work and when he stood up from the stool, he became dizzy and lightheaded. Per he did not loose consciousness He denies chest pain or any headache. No slurring of speech, No Neuro symptoms He was sweating profusely, BS were normal In the ER he felt baetter after IVF, BP were at goal so he was discharge home He declined a wheelchair assistance and he and his was walking down the hallway and then tripped on his shoes and fell down on his knees. He has right below-knee amputation with prosthesis . He was taken back as he was unable to straighten his right knee. X-ray of both knees showed displaced fracture of the right distal femur and Pt was transferred to the [facility]. Currently he denies any CP or SOB, No N/V. Denies any symptoms of UTI at home, No use of NSAIDs . He is on 3 antihypertensives at home including Lisinopril Per his his BP were a little lower at home , he continued to take his meds. He Denies any N/V/D. He has CKD stagge and is under Dr. Carrion's care - last seen in Office in June 2019, pt states his Cr he thinks has been 1.6-1.7 Past Medical History Cardiovascular: No pertinent hx, CAD Pulmonary: No pertinent hx GI: No pertinent hx Musculoskeletal: Osteoarthritis ENT: Sincusitis Endocrine: Diabetes, Hypothyroidism Past Surgical History Past Surgical History Significant for C5-C7 spinal surgery, status post cervical spine fusion x 2, status post insulin pump placement, thyroidectomy, and right below-knee amputation. Past Surgical History: Other (Coronary stenting, pacemaker, cervical fusion, multiple I&D's of foot wounds, right below knee amputation with myself in 2016) Family History Family History He is only child. His father by committing suicide,however, he was known to have severe COPD and alcoholism. Mother at age of 75 because of brain tumor. Family History: Heart Disease Social History Social History He is , has 1 daughter. He does not smoke, drink alcohol or use any recreational drugs. No ALCOHOL: none Lives: with Family Current Medications Current Medications Current Medications Morphine Sulfate (Morphine Sulfate) 4 mg Q4HRS PRN IV PAIN; Start 11/08/19 at 21:00; Stop 11/08/19 at 21:27; Status DC Dextrose/Sodium Chloride 1,000 ml @ 75 mls/hr [id number] IV Last administered on 11/10/19at 03:33; Start 11/08/19 at 21:00 Ondansetron HCl (Zofran) 4 mg PRN Q6HRS PRN IVP NAUSEA/VOMITING Last administered on 11/09/19at 18:08; Start 11/08/19 at 21:00; Stop 11/09/19 at 19:44; Status DC Morphine Sulfate (Morphine Sulfate) 4 mg PRN Q4HRS PRN IV PAIN Last administered on 11/09/19at 13:27; Start 11/08/19 at 21:30 Piperacillin Sod/ Tazobactam Sod 2.25 gm/Sodium Chloride 50 ml @ 100 mls/hr Q8H IV ; Start 11/09/19 at 10:00; Status Cancel Linezolid/Dextrose 300 ml @ 300 mls/hr Q12HR IV Last administered on 11/10/19at 10:02; Start 11/09/19 at 11:00; Stop 11/10/19 at 10:42; Status DC Sodium Chloride 500 ml @ 500 mls/hr 1X ONCE IV Last administered on 11/09/19at 11:27; Start 11/09/19 at 10:00; Stop 11/09/19 at 10:59; Status DC Piperacillin Sod/ Tazobactam Sod 2.25 gm/Sodium Chloride 50 ml @ 100 mls/hr Q8H IV ; Start 11/09/19 at 10:00; Status Cancel Piperacillin Sod/ Tazobactam Sod 2.25 gm/Sodium Chloride 50 ml @ 100 mls/hr Q8H IV ; Start 11/09/19 at 10:00; Status Cancel Insulin Human Lispro (HumaLOG) 0-7 UNITS TIDWMEALS SQ ; Start 11/09/19 at 12:00 Dextrose (Dextrose 50%-Water Syringe) 12.5 gm PRN Q15MIN PRN IV SEE COMMENTS; Start 11/09/19 at 10:15 Piperacillin Sod/ Tazobactam Sod 2.25 gm/Sodium Chloride 50 ml @ 100 mls/hr Q8HRS IV Last administered on 11/10/19at 06:41; Start 11/09/19 at 10:00; Stop 11/10/19 at 10:42; Status DC Mexiletine HCl (Mexitil) 150 mg BID PO ; Start 11/09/19 at 21:00; Status UNV Ringer's Solution 1,000 ml @ 30 mls/hr Q24H IV ; Start 11/09/19 at 14:08; Stop 11/10/19 at 02:07; Status DC Prochlorperazine Edisylate (Compazine) 5 mg PACU PRN PRN IV NAUSEA, MRX1; Start 11/09/19 at 14:15; Stop 11/09/19 at 20:00; Status DC Lidocaine HCl (Lidocaine 1% 20ml Vial) 20 ml STK-MED ONCE .ROUTE ; Start 11/09/19 at 14:23; Stop 11/09/19 at 14:24; Status DC Bupivacaine HCl (Sensorcaine Mpf 0.5%) 30 ml STK-MED ONCE .ROUTE ; Start 11/09/19 at 14:23; Stop 11/09/19 at 14:24; Status DC Propofol (Diprivan) 200 mg STK-MED ONCE IV ; Start 11/09/19 at 14:44; Stop 11/09/19 at 14:44; Status DC Propofol (Diprivan) 200 mg STK-MED ONCE IV ; Start 11/09/19 at 14:44; Stop 11/09/19 at 14:44; Status DC Lidocaine HCl (Lidocaine Pf 2% Vial) 5 ml STK-MED ONCE .ROUTE ; Start 11/09/19 at 14:44; Stop 11/09/19 at 14:44; Status DC Phenylephrine HCl (PHENYLEPHRINE in 0.9% NACL PF) 1 mg STK-MED ONCE IV ; Start 11/09/19 at 14:45; Stop 11/09/19 at 14:45; Status DC Sevoflurane (Ultane) 60 ml STK-MED ONCE IH ; Start 11/09/19 at 14:45; Stop 11/09/19 at 14:45; Status DC Cefazolin Sodium/ Dextrose 50 ml @ 100 mls/hr 1X PREOP PRN IV PRIOR TO PROC EDURE; Start 11/09/19 at 15:00; Stop 11/10/19 at 07:03; Status DC Morphine Sulfate 5 mg/Ketorolac Tromethamine 30 mg/Ropivacaine 60 ml/Epinephrine HCl 0.5 mg/Sodium Chloride 100 ml @ 100 mls/hr 1X ONCE INT ART Last administered on 11/09/19at 15:16; Start 11/09/19 at 15:00; Stop 11/09/19 at 15:59; Status DC Phenylephrine HCl (Khang-Synephrine Inj) 10 mg STK-MED ONCE .ROUTE ; Start 11/09/19 at 15:35; Stop 11/09/19 at 15:36; Status DC Ondansetron HCl (Zofran) 4 mg STK-MED ONCE .ROUTE ; Start 11/09/19 at 16:09; Stop 11/09/19 at 16:09; Status DC Cefazolin Sodium/ Dextrose 50 ml @ 100 mls/hr Q6H IV Last administered on 11/10/19at 10:01; Start 11/09/19 at 21:00; Stop 11/10/19 at 09:29; Status DC Ondansetron HCl (Zofran) 4 mg PRN Q4HRS PRN IVP NAUSEA/VOMITING Last administered on 11/09/19at 22:07; Start 11/09/19 at 18:15 Sodium Chloride 1,000 ml @ 1,000 mls/hr 1X ONCE IV ; Start 11/10/19 at 04:00; Stop 11/10/19 at 06:00; Status DC Insulin Human Lispro (HumaLOG) 3 units 1X ONCE SQ Last administered on at 06:46; Start 11/10/19 at 06:00; Stop 11/10/19 at 06:01; Status DC Sodium Chloride 1,000 ml @ 100 mls/hr 1X ONCE IV Last administered on 11/10/19at 10:08; Start 11/10/19 at 08:00; Stop 11/10/19 at 17:59 Sodium Chloride 1,000 ml @ 150 mls/hr Q6H40M IV ; Start 11/10/19 at 18:00 Atorvastatin Calcium (Lipitor) 40 mg DAILY PO ; Start 11/10/19 at 09:00 Levothyroxine Sodium (Synthroid) 50 mcg DAILY06 PO Last administered on 11/10/19at 10:02; Start 11/10/19 at 09:00 Fish Oil (Fish Oil) 1,000 mg BID PO Last administered on 11/10/19at 10:02; Start 11/10/19 at 09:00 Non-Formulary Medication (Cinnamon Bark (Cinnamon)) 1,000 mg DAILY PO ; Start 11/10/19 at 09:00; Status UNV Gabapentin (Neurontin) 600 mg TID PO Last administered on 11/10/19at 10:08; Start 11/10/19 at 09:00 Non-Formulary Medication (Mexiletine Hcl ) 150 mg BID PO ; Start 11/10/19 at 09:00; Status UNV Multivitamins (Thera M Plus) 1 tab DAILY PO Last administered on 11/10/19at 10:02; Start 11/10/19 at 09:00 Active Scripts Active Reported Carvedilol 25 Mg Tablet 25 Mg PO BIDWMEALS Cinnamon (Cinnamon Bark) 500 Mg Capsule 1,000 Mg PO DAILY Once Daily (Multivitamin) 1 Each Tablet 1 Tab PO DAILY 30 Days Fish Oil 1,000 Mg Capsule ([place]-3 Fatty Acids/Fish Oil) 1 Each Capsule 2 Each PO BID Gabapentin 600 Mg Tablet 600 Mg PO TID Synthroid (Levothyroxine Sodium) 50 Mcg Tablet 1 Tab PO DAILY Atorvastatin Calcium 40 Mg Tablet 1 Tab PO DAILY Lisinopril 20 Mg Tablet 1 Tab PO DAILY Mexiletine Hcl 150 Mg Capsule 150 Mg PO BID Eliquis (Apixaban) 5 Mg Tablet 5 Mg PO BID Allergies Allergies: Coded Allergies: carbamazepine (Verified Allergy, Intermediate, 11/10/19) oxaprozin (Verified Allergy, Intermediate, 11/10/19) ROS Review of System All systems reviewed and negative except Positive findings per HPI Physical Exam Physical Exam GEN: NAD HEEN: Mildly dry NECK: supple CVS: S1S2, RESP: CTA, No Acc. Muscle Use GI: BS + ve, NO Bruit, Non Tender, Non Distended : No CVA tenderness, No Suprapubic Tenderness, Franks + NEURO- Grossly Normal EXT- Rt BKA, No LE edema Lt SKIN: post-surgical dressing on the distal femur Vital Signs Vital Signs Date Time Temp Pulse Resp B/P (MAP) Pulse Ox O2 Delivery O2 Flow Rate FiO2 11/10/19 07:00 98.0 79 18 82/36 (51) 91 Room Air 98.0 11/09/19 17:10 10 Assessment & Plan DELVIS on CKD- at presentation to [facility] Cr 2.0-Increased to 2.9 Suspect ATN sec to Hypotension Supportive care, IVF, Check UA, Avoid Nephrotoxins, Strict I/O CKD stage 3- under Dr. Carrion's care, Baseline Cr per Pt 1.6-1.7 Acute comminuted right distal femur fracture, right below-knee amputation s/p- S/P Open reduction internal fixation right intra-articular distal femoral fracture DM HTN - On 3 antihypertensives at home Currently BP has been low 80-90's since presentation IVF Anemia- Acute drop in Hgb 10.9--> 7.7, per primary and Ortho Labs Labs Laboratory Tests Test 11/08/19 20:39 11/09/19 04:00 11/09/19 07:33 11/09/19 14:32 Glucose (Fingerstick) 182 mg/dL (70-99) 280 mg/dL (70-99) 227 mg/dL (70-99) White Blood Count 10.3 x10^3/uL (4.0-11.0) Red Blood Count 3.50 x10^6/uL (4.30-5.70) Hemoglobin 10.9 g/dL (13.0-17.5) Hematocrit 32.1 % (39.0-53.0) Mean Corpuscular Volume 92 fL (79-100) Mean Corpuscular Hemoglobin 31 pg (25-35) Mean Corpuscular Hemoglobin Concent 34 g/dL (31-37) Red Cell Distribution Width 14.4 % (11.5-14.5) Platelet Count 187 x10^3/uL (140-400) Neutrophils (%) (Auto) 87 % (31-73) Lymphocytes (%) (Auto) 7 % (24-48) Monocytes (%) (Auto) 6 % (0-9) Eosinophils (%) (Auto) 0 % (0-3) Basophils (%) (Auto) 0 % (0-3) Neutrophils # (Auto) 8.9 x10^3/uL (1.8-7.7) Lymphocytes # (Auto) 0.7 x10^3/uL (1.0-4.8) Monocytes # (Auto) 0.6 x10^3/uL (0.0-1.1) Eosinophils # (Auto) 0.0 x10^3/uL (0.0-0.7) Basophils # (Auto) 0.0 x10^3/uL (0.0-0.2) Segmented Neutrophils % 92 % (35-66) Band Neutrophils % 1 % (0-9) Lymphocytes % 5 % (24-48) Monocytes % 2 % (0-10) Platelet Estimate Adequate (ADEQUATE) Sodium Level 141 mmol/L (136-145) Potassium Level 4.5 mmol/L (3.5-5.1) Chloride Level 105 mmol/L (98-107) Carbon Dioxide Level 23 mmol/L (21-32) Anion Gap 13 (6-14) Blood Urea Nitrogen 49 mg/dL (8-26) Creatinine 1.9 mg/dL (0.7-1.3) Estimated GFR (Cockcroft-Gault) 34.6 BUN/Creatinine Ratio 26 (6-20) Glucose Level 200 mg/dL (70-99) Calcium Level 8.2 mg/dL (8.5-10.1) Total Bilirubin 0.3 mg/dL (0.2-1.0) Aspartate Amino Transf (AST/SGOT) 18 U/L (15-37) Alanine Aminotransferase (ALT/SGPT) 17 U/L (16-63) Alkaline Phosphatase 78 U/L (46-116) Total Protein 6.0 g/dL (6.4-8.2) Albumin 2.8 g/dL (3.4-5.0) Albumin/Globulin Ratio 0.9 (1.0-1.7) Test 11/09/19 16:13 11/09/19 16:58 11/09/19 18:00 11/10/19 00:02 Glucose (Fingerstick) 193 mg/dL (70-99) 204 mg/dL (70-99) 212 mg/dL (70-99) 253 mg/dL (70-99) Test 11/10/19 03:05 11/10/19 05:53 11/10/19 11:10 White Blood Count 10.6 x10^3/uL (4.0-11.0) Red Blood Count 2.46 x10^6/uL (4.30-5.70) Hemoglobin 7.7 g/dL (13.0-17.5) Hematocrit 22.6 % (39.0-53.0) Mean Corpuscular Volume 92 fL (79-100) Mean Corpuscular Hemoglobin 31 pg (25-35) Mean Corpuscular Hemoglobin Concent 34 g/dL (31-37) Red Cell Distribution Width 14.4 % (11.5-14.5) Platelet Count 174 x10^3/uL (140-400) Sodium Level 139 mmol/L (136-145) Potassium Level 4.6 mmol/L (3.5-5.1) Chloride Level 105 mmol/L (98-107) Carbon Dioxide Level 21 mmol/L (21-32) Anion Gap 13 (6-14) Blood Urea Nitrogen 56 mg/dL (8-26) Creatinine 2.9 mg/dL (0.7-1.3) Estimated GFR (Cockcroft-Gault) 21.3 BUN/Creatinine Ratio 19 (6-20) Glucose Level 293 mg/dL (70-99) Calcium Level 7.4 mg/dL (8.5-10.1) Total Bilirubin 0.2 mg/dL (0.2-1.0) Aspartate Amino Transf (AST/SGOT) 28 U/L (15-37) Alanine Aminotransferase (ALT/SGPT) 15 U/L (16-63) Alkaline Phosphatase 64 U/L (46-116) Total Protein 5.5 g/dL (6.4-8.2) Albumin 2.6 g/dL (3.4-5.0) Albumin/Globulin Ratio 0.9 (1.0-1.7) Glucose (Fingerstick) 267 mg/dL (70-99) 244 mg/dL (70-99) Laboratory Tests Test 11/09/19 14:32 11/09/19 16:13 11/09/19 16:58 11/09/19 18:00 Glucose (Fingerstick) 227 mg/dL (70-99) 193 mg/dL (70-99) 204 mg/dL (70-99) 212 mg/dL (70-99) Test 11/10/19 00:02 11/10/19 03:05 11/10/19 05:53 11/10/19 11:10 Glucose (Fingerstick) 253 mg/dL (70-99) 267 mg/dL (70-99) 244 mg/dL (70-99) White Blood Count 10.6 x10^3/uL (4.0-11.0) Red Blood Count 2.46 x10^6/uL (4.30-5.70) Hemoglobin 7.7 g/dL (13.0-17.5) Hematocrit 22.6 % (39.0-53.0) Mean Corpuscular Volume 92 fL (79-100) Mean Corpuscular Hemoglobin 31 pg (25-35) Mean Corpuscular Hemoglobin Concent 34 g/dL (31-37) Red Cell Distribution Width 14.4 % (11.5-14.5) Platelet Count 174 x10^3/uL (140-400) Sodium Level 139 mmol/L (136-145) Potassium Level 4.6 mmol/L (3.5-5.1) Chloride Level 105 mmol/L (98-107) Carbon Dioxide Level 21 mmol/L (21-32) Anion Gap 13 (6-14) Blood Urea Nitrogen 56 mg/dL (8-26) Creatinine 2.9 mg/dL (0.7-1.3) Estimated GFR (Cockcroft-Gault) 21.3 BUN/Creatinine Ratio 19 (6-20) Glucose Level 293 mg/dL (70-99) Calcium Level 7.4 mg/dL (8.5-10.1) Total Bilirubin 0.2 mg/dL (0.2-1.0) Aspartate Amino Transf (AST/SGOT) 28 U/L (15-37) Alanine Aminotransferase (ALT/SGPT) 15 U/L (16-63) Alkaline Phosphatase 64 U/L (46-116) Total Protein 5.5 g/dL (6.4-8.2) Albumin 2.6 g/dL (3.4-5.0) Albumin/Globulin Ratio 0.9 (1.0-1.7) Review All relevant outside records, renal labs, imaging studies, telemetry/EKG's were reviewed. Images Images X-ray of his left knee showed normal alignment, no fracture, mild tricompartmental knee degenerative changes. On evaluation of knee joint, effusion is degraded because of positioning in the lateral view, vascular calcification, anterior knee soft tissue swelling. His right knee showed acute comminuted right distal femur fracture with posterior displacement and angulation of the distal fragment, potentially open fracture, extensive vascular calcification, postoperative changes, [id number] amputation, right knee degenerative changes. a WILLIAM TUCKER MD Nov 10, 2019 11:36
--- NOTE | 2019-11-10 11:51 | EKG ---
[facility] [address] [place] [address] Test Date: 2019-11-10 Test Time: 11:25:38 Pat Name: YOVANI FAUST Department: Room: 410 Gender: M Jail Guard: Aziza Bailey : 1945 Requested By: NIKKO BEASLEY Order Number: [id number] Reading MD: Kin Ramirez Measurements Intervals Lewis Rate: P: TX: QRS: QRSD: T: QT: QTc: Interpretive Statements Sinus rhythm V paced Electronically Signed On 11-12-2019 16:17:36 CDT by Kin Ramirez
--- NOTE | 2019-11-10 11:53 | NUR ---
Rapid Response note: Rapid response called on patient for vagal response while transferring [facility]. Patient apparently began sweating and started vomiting and became slightly drowsy, BP taken and was 84/44. Upon arrival, patient was more alert, able to answer questions appropriately, still slightly dizzy but feels better. Blood glucose elevated. [facility]red [facility], patient felt better laying down rather than sitting up. BP increased to 95/50. Dr. Suarez notified, ordered the 1200 scheduled labs stat instead of waiting until 1200, give a 500 cc bolus of NS and transfuse 1 unit PRBCs for Hgb <7.0. Orders placed in computer. Spoke to family at bedside, updated on condition. Will continue to monitor labs. Addendum: 11/10/19 at 1200 by DEE NAVARRO RN Amended: Links added.
[2019-11-10] MEDS ORDERED: IV NORMAL SALINE 500ML BAG 500 ML IV ONE (12:00)
[2019-11-10 12:09] LABS: HEMOGLOBIN 6.5 g/dL (13.0-17.5)
[2019-11-10 12:10] LABS: HEMATOCRIT 19.4 % (39.0-53.0)
[2019-11-10 12:20] LABS: CALCIUM 6.8 mg/dL (8.5-10.1); CREATININE 3.2 mg/dL (0.7-1.3); POTASSIUM 4.4 mmol/L (3.5-5.1)
--- NOTE | 2019-11-10 12:23 | CONS ---
DATE OF CONSULTATION: 11/10/2019 REQUESTING PHYSICIAN: Trever Suarez MD. REASON FOR CONSULTATION: Open femur fracture. HISTORY OF PRESENT ILLNESS: This is a 74-year-old gentleman with a history of multiple medical problems, who was seen at [facility] ER for dizziness. The patient was evaluated and discharged and the patient was walking out of the Emergency Room, stumbled upon his shoe and fell, sustained a right distal femur fracture. The patient had an obvious deformity with tenting of the skin from the bone, but there was no break in the skin that is confirmed by the patient and the patient's at the bedside. The patient was taken to the OR yesterday and ORIF done, a hardware was placed, and the patient was given perioperative cefazolin, but also was started on Zyvox and Zosyn and hence consultation. The patient denies any fever; denies any nausea, vomiting, diarrhea. He has had some nausea and he has had some slight vomiting post-surgery, but he feels fine now. Denies any other complaints. He also has a minor wound on the left foot on the medial surface that he is doctoring at the [facility]. The patient right now is feeling good. PAST MEDICAL HISTORY: Positive for hypertension, hyperlipidemia, coronary artery disease, sick sinus syndrome with AICD in place, peripheral neuropathy, gastroesophageal reflux disease, renal insufficiency, slight deformity of the left foot, and there is an ulcer on the medial aspect. The patient also has diabetes. The patient has insulin pump, thyroidectomy, C5-C7 spinal surgery with fusion. SOCIAL HISTORY: Negative for smoking, alcohol, or illicit drug use. ALLERGIES: No known drug allergies. No known antibiotic allergies. CURRENT MEDICATIONS: Reviewed. REVIEW OF SYSTEMS: As per HPI, all other systems reviewed and are negative. PHYSICAL EXAMINATION: GENERAL: Alert, oriented gentleman, not in distress. VITAL SIGNS: Stable, afebrile. HEENT: NAD. NECK: Supple. No JVP, no lymphadenopathy. LUNGS: Clear. HEART: S1, S2 regular. ABDOMEN: Benign. EXTREMITIES: No edema or cyanosis. SKIN: On the left foot is a very small superficial ulcer on the medial aspect of the foot. No signs of infection. There is not much depth to the ulcer. Right below-knee amputation stump and before then, post-surgical dressing on the distal femur not opened. NEUROLOGIC: The patient neurologically alert, awake, appropriate. No focal neurologic deficit. LABORATORY DATA: White count is 10,000. BUN and creatinine is 56 and 2.9. IMPRESSION: 1. Right distal femur fracture, it was not an open fracture. I did confirm with the patient and the as well as with Dr. Garza, there was no break in the skin. He is not concerned about any infection other than the perioperative 24-hour cefazolin that he wants him to have. There are no other signs of infection. I am going to discontinue Zyvox and Zosyn. 2. Renal insufficiency. 3. Diabetes. 4. Hypertension. 5. Coronary artery disease. RECOMMENDATIONS: Recommend discontinue Zyvox, discontinue Zosyn. Cefazolin 24 hours postop as per Dr. Garza's protocol. Supportive care and offload onto the left foot. Discussed with the patient's and daughter at the bedside as well as discussed with Dr. Garza. Thank you very much, Dr. Suarez, for giving me the opportunity to participate in this patient's care. DEBORAH LEE MD DR: DOREEN/rossi JOB#: [id number] / [id number]
--- NOTE | 2019-11-10 12:54 | NUR ---
Updated Dr. Suarez of labs and transfusion orders. Also notified cardiology [facility] of rapid and current condition of patient.
--- NOTE | 2019-11-10 13:13 | NUR ---
IP: COVID results from [facility] are negative.
--- NOTE | 2019-11-10 13:50 | PN ---
DATE: 11/10/2019 SUBJECTIVE: The patient was admitted with right distal femur fracture. He was transferred to the [facility] and underwent open reduction and internal fixation of right intra-articular distal femoral fracture. On admission yesterday, his creatinine was elevated at 1.9 from a baseline of about 1.3-1.4 and we started him on IV fluid. This morning, the nursing staff called and said that his blood pressure is low, so I gave him 1 liter of normal saline. By the time I saw him, he continued to be somewhat hypotensive and in fact, his creatinine has risen further from 1.9 to 2.9. His H and H also has dropped from 10.9 and 32 to 7.7 and 22.6. The patient himself denied any complaint. There was no obvious bleeding. The dressing of his right knee is not soaked in blood and there was only about 90 mL of blood in the drain. PHYSICAL EXAMINATION: GENERAL: When I saw him this morning, he looked pale, but no jaundice, cyanosis or thyromegaly. No jugular venous distention. No limb edema. VITAL SIGNS: His heart rate was 76, blood pressure was 97/40, temperature was 97.7, respiratory rate was 18, and oxygen saturation was 92%. HEAD, EYES, EARS, NOSE AND THROAT: Showed normocephalic, atraumatic. NECK: Supple. HEART: Showed normal first and second heart sounds. No gallop, rub or murmur. CHEST: Clear to auscultation. No crepitation or rhonchi. ABDOMEN: Distended, soft, nontender. NEUROLOGIC: He was awake, alert, responding appropriately. All cranial nerves are intact. He moves his extremities without difficulty. His right knee is covered with dressing. His intake over the last 24 hours was incompletely recorded. LABORATORY DATA: His lab work this morning showed a white cell count of 10,600; hemoglobin 7.7, hematocrit 22.6, MCV 92, and platelet count of 174,000. His chemistry showed a serum sodium 139, potassium 4.6, chloride 105, bicarbonate 21, anion gap of 13, BUN 56, creatinine 2.9, estimated GFR was 21 mL per minute. His glucose was 193, calcium was 7.4. Total bilirubin, AST, ALT, alkaline phosphatase were normal. Total protein 5.5, albumin was 2.6. ASSESSMENT: 1. Closed right intra-articular distal femur fracture, status post open reduction and internal fixation using [employer] lateral and distal femoral locking plates. 2. Acute kidney injury. Creatinine has risen further from 1.9 to 2.9. 3. Acute blood loss anemia. His H and H dropped down from 10.9 and 32 to 7.7 and 22.6. 4. Other medical problems include: A. Combined ischemic and nonischemic cardiomyopathy, status post BARBER TOOL SHARPENER-D with a [employer] device. B. Coronary artery disease, status post PCI with stent deployment. C. Peripheral arterial disease. D. Chronic kidney disease. E. Hypertension. F. History of atrial fibrillation, paroxysmal for which he was on apixaban. G. Transient ischemic attack. PLAN: My plan is to rate him aggressively. I did order another liter of normal saline. We will also scan his bladder and if he is retaining, we will arrange for an indwelling Franks catheter. I will consult the Nephrology team. I would also hold all of his any nephrotoxic medication. I will also check his H and H and BMP this afternoon, he might require blood transfusion. NIKKO BEASLEY MD DR: PETER/rossi JOB#: [id number] / [id number]
--- NOTE | 2019-11-10 15:53 | PDOC ---
CARDIO Progress Notes Date and Time Date of Service 11/10/19 Time of Evaluation 1145 Subjective Subjective: No Chest Pain, No shortness of breath, No Palpitations, Other (Feels cold, shivering.) Comments: near syncopal episode on toilet today. Rapid called Vitals Vitals Vital Signs Date Time Temp Pulse Resp B/P (MAP) Pulse Ox O2 Delivery O2 Flow Rate FiO2 11/10/19 15:00 97.9 79 18 113/50 (71) 97 Room Air 97.9 11/09/19 17:10 10 Weight Weight [ ] Input and Output Intake and Output Intake and Output 11/10/19 07:00 Intake Total 1200 ml Output Total 400 ml Balance 800 ml Intake Oral 0 ml IV Total 1200 ml Output Urine Total 200 ml Estimated Blood Loss 200 ml Laboratory Labs Laboratory Tests Test 11/09/19 16:13 11/09/19 16:58 11/09/19 18:00 11/10/19 00:02 Glucose (Fingerstick) 193 mg/dL (70-99) 204 mg/dL (70-99) 212 mg/dL (70-99) 253 mg/dL (70-99) Test 11/10/19 03:05 11/10/19 05:53 11/10/19 11:10 11/10/19 11:53 White Blood Count 10.6 x10^3/uL (4.0-11.0) Red Blood Count 2.46 x10^6/uL (4.30-5.70) Hemoglobin 7.7 g/dL (13.0-17.5) 6.5 g/dL (13.0-17.5) Hematocrit 22.6 % (39.0-53.0) 19.4 % (39.0-53.0) Mean Corpuscular Volume 92 fL (79-100) Mean Corpuscular Hemoglobin 31 pg (25-35) Mean Corpuscular Hemoglobin Concent 34 g/dL (31-37) 34 g/dL (31-37) Red Cell Distribution Width 14.4 % (11.5-14.5) Platelet Count 174 x10^3/uL (140-400) Sodium Level 139 mmol/L (136-145) 139 mmol/L (136-145) Potassium Level 4.6 mmol/L (3.5-5.1) 4.4 mmol/L (3.5-5.1) Chloride Level 105 mmol/L (98-107) 106 mmol/L (98-107) Carbon Dioxide Level 21 mmol/L (21-32) 19 mmol/L (21-32) Anion Gap 13 (6-14) 14 (6-14) Blood Urea Nitrogen 56 mg/dL (8-26) 56 mg/dL (8-26) Creatinine 2.9 mg/dL (0.7-1.3) 3.2 mg/dL (0.7-1.3) Estimated GFR (Cockcroft-Gault) 21.3 19.0 BUN/Creatinine Ratio 19 (6-20) Glucose Level 293 mg/dL (70-99) 261 mg/dL (70-99) Calcium Level 7.4 mg/dL (8.5-10.1) 6.8 mg/dL (8.5-10.1) Total Bilirubin 0.2 mg/dL (0.2-1.0) Aspartate Amino Transf (AST/SGOT) 28 U/L (15-37) Alanine Aminotransferase (ALT/SGPT) 15 U/L (16-63) Alkaline Phosphatase 64 U/L (46-116) Total Protein 5.5 g/dL (6.4-8.2) Albumin 2.6 g/dL (3.4-5.0) Albumin/Globulin Ratio 0.9 (1.0-1.7) Glucose (Fingerstick) 267 mg/dL (70-99) 244 mg/dL (70-99) Creatine Kinase 979 U/L (39-308) Troponin I Quantitative 0.051 ng/mL (0.000-0.055) Test 11/10/19 14:12 Glucose (Fingerstick) 249 mg/dL (70-99) Physical Exam HEENT: Neck Supple W Full Motion Chest: Symmetric Heart: S1S2, RRR (no tele) Abdomen: Soft N/T Extremities: No Edema Neurology: alert, oriented, follow commands Assessment Assessment 1. Near syncope; had another episode this morning following transfer to the bedside commode. Rapid called. Was hypotensive. BS WNL. 2. Hypertension; remains hypotensive. 3. Anemia; hgb 6.5. No obvious bleeding. To be transfused 4. Hyperlipidemia; statin 5. Combined ischemic and nonischemic cardiomyopathy, status post HAND ALMOND BLANCHER-D ([employer]) 6. Chronic systolic CHF; appears compensated. . 7. CAD; s/p previous PCI/stent placement. 8. PAFIB; not on tele. Heart tones regular. Previously on OAC. 9. DELVIS; On IVFs 10. Right distal femur fracture; s/p ORIF 11. PAD; s/p right BKA 12. H/o high PVC burden; recent started on antiarrhythmic therapy Recommendations Tele monitoring Device interrogation Continue Mexiletine Hold antiHTN therapy IVFs Transfuse as warranted No OAC/ASA with anemia Justicifation of Admission Dx: Justifications for Admission: Justification of Admission Dx: Yes CHF: Cardiac Arrhythmias DEBBY TILLMAN APRN Nov 10, 2019 15:53
--- NOTE | 2019-11-10 16:35 | NUR ---
[employer] ( ) was called. Accounts Receivable Coordinator paged. Awaiting call back.
--- NOTE | 2019-11-10 16:51 | NUR ---
Ravinder from [employer] called back. Vendor Manager will be here tonight or early tomorrow morning.
--- NOTE | 2019-11-10 17:13 | NUR ---
Wound Care Wound Type/Assessment: Left medial arch DFU, Charcot deformity, wound bed pale pink and red granulation tissue, periwound callus, small amount of undermining from 6-9:00. No odor or fluctuance noted. Treatment Recommendations/Plan: Oma collagen, Xeroform gauze and foam dressing, change every 3 days. Education provided: to pt and family about off-loading foot ulcer. Offloading surface/device: NWB Recommended Referrals/Tests: Pt is a current pt of [facility], will f/u at d/c. Discharge Recommendations for dressings: Defer to current wound care MD.
--- NOTE | 2019-11-10 17:43 | NUR ---
Patient transferred to [facility] at approximately 1730. Report given to Zayda RICHARDSON
--- NOTE | 2019-11-10 17:45 | NUR ---
Patient has been received to room 262. 2 family members with patient. Patient appears alert and oriented, oriented to unit. IVF placed on pump at 150ml/hr. Patient declines dinner at this time. Extension set on IV line changed.
[2019-11-10 17:51] LABS: HEMATOCRIT 22.9 % (39.0-53.0); HEMOGLOBIN 7.7 g/dL (13.0-17.5)
[2019-11-10] MEDS: IV NORMAL SALINE 1000ML BAG 1,000 ML IV SCH (18:55)
[2019-11-11] VITALS (11 sets, daily range): BP systolic 95–111; BP diastolic 49–66
[2019-11-11] MEDS: IV NORMAL SALINE 1000ML BAG 1,000 ML IV SCH ×3 (01:44→17:34)
[2019-11-11] MEDS: MORPHINE SULFATE 4 MG/ML VIAL. IV PRN (03:41)
[2019-11-11] MEDS: LEVOTHYROXINE 50 MCG TABLET PO SCH (06:00)
[2019-11-11 08:27] LABS: ALBUMIN 2.1 g/dL (3.4-5.0); ALBUMIN/GLOBULIN RATIO 0.8 (1.0-1.7); CALCIUM 6.7 mg/dL (8.5-10.1); CREATININE 2.7 mg/dL (0.7-1.3); GFR 23.1; PHOSPHORUS 4.2 mg/dL (2.6-4.7); TOTAL BILIRUBIN 0.1 mg/dL (0.2-1.0); TOTAL PROTEIN 4.7 g/dL (6.4-8.2)
[2019-11-11] MEDS: OMEGA-3 FATTY ACIDS/FISH OIL 1,000 MG CAPSULE. PO SCH ×2 (08:27→22:00)
[2019-11-11] MEDS: MULTIVITAMIN with MINERAL TABLET. PO SCH (08:28)
[2019-11-11] MEDS: ATORVASTATIN CALCIUM 40 MG TABLET. PO SCH (08:28)
[2019-11-11] MEDS: GABAPENTIN 300 MG CAPSULE. PO SCH ×3 (08:28→22:00)
[2019-11-11 08:46] LABS: RED BLOOD COUNT 2.13 x10^6/uL (4.30-5.70); RED CELL DISTRIBUTION WIDTH 14.4 % (11.5-14.5); WHITE BLOOD COUNT 6.8 x10^3/uL (4.0-11.0)
[2019-11-11] MEDS: MEXILITINE PO SCH ×2 (09:00→21:00)
[2019-11-11 09:08] LABS: HEMATOCRIT 19.6 % (39.0-53.0); HEMOGLOBIN 6.7 g/dL (13.0-17.5)
[2019-11-11] MEDS: INSULIN LISPRO 300 UNITS/3 ML VIAL. SQ SCH (09:32)
--- NOTE | 2019-11-11 10:38 | PDOC ---
SUBJECTIVE ROS Feeling dizzy even when sits up Near syncopal episode yesterday following transfer to the bedside commode Was hypotensive, moved to tele OBJECTIVE Vital Signs Vital Signs Date Time Temp Pulse Resp B/P (MAP) Pulse Ox O2 Delivery O2 Flow Rate FiO2 11/11/19 07:00 97.8 84 18 110/49 (69) 95 Room Air 97.8 I & 0 Intake and Output 11/11/19 07:00 Intake Total 290 ml Output Total 90 ml Balance 200 ml Intake Oral 240 ml Blood Product IV Normal Saline Flush 50 ml Drainage Total 90 ml PHYSICAL EXAM Physical Exam GEN: NAD HEEN: OM moist NECK: supple CVS: S1S2, RESP: CTA, No Acc. Muscle Use GI: BS + ve, NO Bruit, Non Tender, Non Distended : No CVA tenderness, No Suprapubic Tenderness, Franks + NEURO- Grossly Normal EXT- Rt BKA, No LE edema Lt SKIN: post-surgical dressing on the distal femur DIAGNOSIS/ASSESSMENT Assessment & Plan DELVIS on CKD- at presentation to [facility] Cr 2.0-Increased to 2.9 Suspect ATN sec to Hypotension, CK mildly elevated , UA pending Supportive care, IVF, Check UA, Avoid Nephrotoxins, Strict I/O CKD stage 3- under Dr. Carrion's care, Baseline Cr per Pt 1.6-1.7 Acute comminuted right distal femur fracture, right below-knee amputation s/p- S/P Open reduction internal fixation right intra-articular distal femoral fracture DM HTN - On 3 antihypertensives at home Currently BP has been low 80-90's since presentation Cardiology managing Anemia- Acute drop in Hgb ,recd PRBC yesterday Hgb < 7 this am , PRBC today per primary Discussed with Pt, and daughter COMMENT/RELEVANT DATA Meds Current Medications Medications (Trade) Dose Ordered Sig/Nona Start Time Stop Time Status Last Admin Dose Admin Atorvastatin Calcium (Lipitor) 40 mg DAILY 11/10/19 09:00 11/11/19 08:28 40 MG Bupivacaine HCl (Sensorcaine Mpf 0.5%) 30 ml STK-MED ONCE 11/09/19 14:23 11/09/19 14:24 DC Cefazolin Sodium/ Dextrose (Ancef 2gm Premix) 2 gm STK-MED ONCE 11/09/19 15:00 11/10/19 13:31 DC Dextrose (Dextrose 50%-Water Syringe) 12.5 gm PRN Q15MIN PRN 11/09/19 10:15 Dextrose/Sodium Chloride 1,000 ml @ 75 mls/hr [id number] 11/08/19 21:00 11/10/19 17:43 DC 11/10/19 03:33 75 MLS/HR Fish Oil (Fish Oil) 1,000 mg BID 11/10/19 09:00 11/11/19 08:27 1,000 MG Gabapentin (Neurontin) 600 mg TID 11/10/19 09:00 11/11/19 08:28 600 MG Insulin Human Lispro (HumaLOG) 3 units 1X ONCE 11/10/19 06:00 11/10/19 06:01 DC 11/10/19 06:46 3 UNITS Levothyroxine Sodium (Synthroid) 50 mcg DAILY06 11/10/19 09:00 11/10/19 10:02 50 MCG Lidocaine HCl (Lidocaine 1% 20ml Vial) 20 ml STK-MED ONCE 11/09/19 14:23 11/09/19 14:24 DC Lidocaine HCl (Lidocaine Pf 2% Vial) 5 ml STK-MED ONCE 11/09/19 14:44 11/09/19 14:44 DC Linezolid/Dextrose 300 ml @ 300 mls/hr Q12HR 11/09/19 11:00 11/10/19 10:42 DC 11/10/19 10:02 300 MLS/HR Mexiletine HCl (Mexitil) 150 mg BID 11/09/19 21:00 11/10/19 11:21 DC Morphine Sulfate (Morphine Sulfate) 4 mg PRN Q4HRS PRN 11/08/19 21:30 11/11/19 03:41 4 MG Morphine Sulfate 5 mg/Ketorolac Tromethamine 30 mg/Ropivacaine 60 ml/Epinephrine HCl 0.5 mg/Sodium Chloride 100 ml @ 100 mls/hr 1X ONCE 11/09/19 15:00 11/09/19 15:59 DC 11/09/19 15:16 Multivitamins (Thera M Plus) 1 tab DAILY 11/10/19 09:00 11/11/19 08:28 1 TAB Non-Formulary Medication 1 ea BID 11/10/19 11:30 11/10/19 20:26 1 EA Non-Formulary Medication (Cinnamon Bark (Cinnamon)) 1,000 mg DAILY 11/10/19 09:00 UNV Non-Formulary Medication (Mexiletine Hcl ) 150 mg BID 11/10/19 09:00 UNV Ondansetron HCl (Zofran) 4 mg PRN Q4HRS PRN 11/09/19 18:15 11/09/19 22:07 4 MG Phenylephrine HCl (Khang-Synephrine Inj) 10 mg STK-MED ONCE 11/09/19 15:35 11/09/19 15:36 DC Phenylephrine HCl (PHENYLEPHRINE in 0.9% NACL PF) 1 mg STK-MED ONCE 11/09/19 14:45 11/09/19 14:45 DC Piperacillin Sod/ Tazobactam Sod 2.25 gm/Sodium Chloride 50 ml @ 100 mls/hr Q8HRS 11/09/19 10:00 11/10/19 10:42 DC 11/10/19 06:41 100 MLS/HR Prochlorperazine Edisylate (Compazine) 5 mg PACU PRN PRN 11/09/19 14:15 11/09/19 20:00 DC Propofol (Diprivan) 200 mg STK-MED ONCE 11/09/19 14:44 11/09/19 14:44 DC Ringer's Solution 1,000 ml @ 30 mls/hr Q24H 11/09/19 14:08 11/10/19 02:07 DC Sevoflurane (Ultane) 60 ml STK-MED ONCE 11/09/19 14:45 11/09/19 14:45 DC Sodium Chloride 500 ml @ 500 mls/hr 1X ONCE 11/10/19 12:00 11/10/19 12:59 DC 11/10/19 11:30 500 MLS/HR Lab Laboratory Tests Test 11/10/19 11:10 11/10/19 11:53 11/10/19 14:12 11/10/19 16:42 Glucose (Fingerstick) 244 mg/dL (70-99) 249 mg/dL (70-99) Hemoglobin 6.5 g/dL (13.0-17.5) 7.7 g/dL (13.0-17.5) Hematocrit 19.4 % (39.0-53.0) 22.9 % (39.0-53.0) Mean Corpuscular Hemoglobin Concent 34 g/dL (31-37) 34 g/dL (31-37) Sodium Level 139 mmol/L (136-145) Potassium Level 4.4 mmol/L (3.5-5.1) Chloride Level 106 mmol/L (98-107) Carbon Dioxide Level 19 mmol/L (21-32) Anion Gap 14 (6-14) Blood Urea Nitrogen 56 mg/dL (8-26) Creatinine 3.2 mg/dL (0.7-1.3) Estimated GFR (Cockcroft-Gault) 19.0 Glucose Level 261 mg/dL (70-99) Calcium Level 6.8 mg/dL (8.5-10.1) Creatine Kinase 979 U/L (39-308) Troponin I Quantitative 0.051 ng/mL (0.000-0.055) Test 11/10/19 20:52 11/11/19 04:35 11/11/19 07:57 Glucose (Fingerstick) 242 mg/dL (70-99) 224 mg/dL (70-99) White Blood Count 6.8 x10^3/uL (4.0-11.0) Red Blood Count 2.13 x10^6/uL (4.30-5.70) Hemoglobin 6.7 g/dL (13.0-17.5) Hematocrit 19.6 % (39.0-53.0) Mean Corpuscular Volume 92 fL (79-100) Mean Corpuscular Hemoglobin 32 pg (25-35) Mean Corpuscular Hemoglobin Concent 34 g/dL (31-37) Red Cell Distribution Width 14.4 % (11.5-14.5) Platelet Count 122 x10^3/uL (140-400) Sodium Level 140 mmol/L (136-145) Potassium Level 4.0 mmol/L (3.5-5.1) Chloride Level 109 mmol/L (98-107) Carbon Dioxide Level 19 mmol/L (21-32) Anion Gap 12 (6-14) Blood Urea Nitrogen 60 mg/dL (8-26) Creatinine 2.7 mg/dL (0.7-1.3) Estimated GFR (Cockcroft-Gault) 23.1 BUN/Creatinine Ratio 22 (6-20) Glucose Level 242 mg/dL (70-99) Calcium Level 6.7 mg/dL (8.5-10.1) Phosphorus Level 4.2 mg/dL (2.6-4.7) Total Bilirubin 0.1 mg/dL (0.2-1.0) Aspartate Amino Transf (AST/SGOT) 63 U/L (15-37) Alanine Aminotransferase (ALT/SGPT) 12 U/L (16-63) Alkaline Phosphatase 49 U/L (46-116) Total Protein 4.7 g/dL (6.4-8.2) Albumin 2.1 g/dL (3.4-5.0) Albumin/Globulin Ratio 0.8 (1.0-1.7) Results All relevant outside records, renal labs, imaging studies, telemetry/EKG's were reviewed. Justicifation of Admission Dx: Justifications for Admission: Justification of Admission Dx: Yes CHF: Cardiac Arrhythmias WILLIAM TCUKER MD Nov 11, 2019 10:38
--- NOTE | 2019-11-11 11:51 | NUR ---
SS following up with discharge planning. SS reviewed pt chart and discussed with pt RN. Pt transferred from . Pt is from home with spouse and is currently on room air. PT/OT ordered. SS will continue to follow for discharge planning.
--- NOTE | 2019-11-11 12:38 | PN ---
DATE: 11/11/2019 SUBJECTIVE: The patient is resting, slightly propped up in bed, in no apparent respiratory distress. He is awake, alert. Denied any complaint except that he continued to feel dizzy even when he tried to sit on the edge of the bed to eat his breakfast this morning. There is no obvious site of bleeding; however, his H and H has dropped again to 6.7 and 19.6 after received 1 unit of blood yesterday. However, his kidney function is turning the corner. His creatinine is down today from 3.2 to 2.7. PHYSICAL EXAMINATION: GENERAL: When I examined him, he looked pale, no jaundice, cyanosis or thyromegaly. No jugular venous distention. No limb edema. VITAL SIGNS: His heart rate was 86, blood pressure was 111/58, temperature was 97.5, respiratory rate was 18 and oxygen saturation was 95%. HEAD, EYES, EARS, NOSE AND THROAT: Normocephalic, atraumatic. NECK: Supple. HEART: Showed normal first and second heart sounds. No gallop or murmur. CHEST: Clear to auscultation. No crepitation or rhonchi. ABDOMEN: Distended, soft, nontender. NEUROLOGIC: He is awake, alert, responding appropriately. All cranial nerves are intact. He moves extremities without difficulty. He is mostly bed bound. His intake over the last 24 hours was 1200, output was 400. LABORATORY DATA: His lab work this morning showed a serum sodium 140, potassium 4, chloride 109, bicarbonate 19, anion gap of 12, BUN 60, creatinine 2.7, estimated GFR was 23 mL per minute. His glucose was 242, calcium was 6.7. Total phosphorus 4.2. Total bilirubin, AST, ALT, alkaline phosphatase were normal. CK was 1500. Total protein was 4.7, albumin was 2.1. His white cell count was 6800, hemoglobin 6.7, hematocrit 19.6, MCV 92, and platelet count of 122,000. ASSESSMENT: 1. Closed right intra-articular distal femur fracture, status post open reduction and internal fixation using Garcia and Nephew lateral and distal femoral locking plate. 2. Acute kidney injury. Creatinine has risen to 3.2. Today's turning the corner down to 2.7. 3. Acute blood loss anemia with hemoglobin and hematocrit dropped down yesterday to 6.5 and 19.4 for which he received 1 unit of packed RBCs. This morning, his H and H has dropped again to 6.7 and 19.6. Other medical problems include; A. Combined ischemic and nonischemic cardiomyopathy, status post PORTER LUGGAGE-D with a [employer] device. B. Coronary artery disease, status post PCI with stent deployment. C. Peripheral arterial disease. D. Chronic kidney disease. E. Hypertension. F. History of atrial fibrillation, paroxysmal for which he was on apixaban. G. Transient ischemic attack. PLAN: Plan is to continue to transfuse 1 unit of packed RBCs. Continue to monitor his intake and output. Continue with IV fluid. I will switch him to oral oxycodone 5 mg p.o. every 4 hours. Advised him to use his insulin infusion pump and will discontinue his Accu-Cheks. NIKKO BEASLEY MD DR: PETER/rossi JOB#: [id number] / [id number]
--- NOTE | 2019-11-11 13:11 | PDOC ---
DEBBY TILLMAN SOLAR FIELD SERVICE TECHNICIAN 11/11/19 1311: CARDIO Progress Notes Date and Time Date of Service 11/11/19 Time of Evaluation 1310 Subjective Subjective: No Chest Pain, No shortness of breath, No Palpitations Vitals Vitals Vital Signs Date Time Temp Pulse Resp B/P (MAP) Pulse Ox O2 Delivery O2 Flow Rate FiO2 11/11/19 11:04 97.5 86 18 111/58 97.5 11/11/19 11:00 95 Room Air Weight Weight [ ] Input and Output Intake and Output Intake and Output 11/11/19 07:00 Intake Total 290 ml Output Total 90 ml Balance 200 ml Intake Oral 240 ml Blood Product IV Normal Saline Flush 50 ml Drainage Total 90 ml Laboratory Labs Laboratory Tests Test 11/10/19 14:12 11/10/19 16:42 11/10/19 20:52 11/11/19 04:35 Glucose (Fingerstick) 249 mg/dL (70-99) 242 mg/dL (70-99) Hemoglobin 7.7 g/dL (13.0-17.5) 6.7 g/dL (13.0-17.5) Hematocrit 22.9 % (39.0-53.0) 19.6 % (39.0-53.0) Mean Corpuscular Hemoglobin Concent 34 g/dL (31-37) 34 g/dL (31-37) White Blood Count 6.8 x10^3/uL (4.0-11.0) Red Blood Count 2.13 x10^6/uL (4.30-5.70) Mean Corpuscular Volume 92 fL (79-100) Mean Corpuscular Hemoglobin 32 pg (25-35) Red Cell Distribution Width 14.4 % (11.5-14.5) Platelet Count 122 x10^3/uL (140-400) Sodium Level 140 mmol/L (136-145) Potassium Level 4.0 mmol/L (3.5-5.1) Chloride Level 109 mmol/L (98-107) Carbon Dioxide Level 19 mmol/L (21-32) Anion Gap 12 (6-14) Blood Urea Nitrogen 60 mg/dL (8-26) Creatinine 2.7 mg/dL (0.7-1.3) Estimated GFR (Cockcroft-Gault) 23.1 BUN/Creatinine Ratio 22 (6-20) Glucose Level 242 mg/dL (70-99) Calcium Level 6.7 mg/dL (8.5-10.1) Phosphorus Level 4.2 mg/dL (2.6-4.7) Total Bilirubin 0.1 mg/dL (0.2-1.0) Aspartate Amino Transf (AST/SGOT) 63 U/L (15-37) Alanine Aminotransferase (ALT/SGPT) 12 U/L (16-63) Alkaline Phosphatase 49 U/L (46-116) Creatine Kinase 1502 U/L (39-308) Total Protein 4.7 g/dL (6.4-8.2) Albumin 2.1 g/dL (3.4-5.0) Albumin/Globulin Ratio 0.8 (1.0-1.7) Test 11/11/19 07:57 11/11/19 10:58 Glucose (Fingerstick) 224 mg/dL (70-99) 255 mg/dL (70-99) Physical Exam HEENT: Neck Supple W Full Motion Chest: Symmetric Heart: S1S2, RRR (V-paced with underlying SR) Abdomen: Soft N/T Extremities: No Edema Neurology: alert, oriented, follow commands Assessment Assessment 1. Near syncope; episode x2. Hypovolemia, hypotension likely contributing. Has dizzy episode today sitting up on edge of bed 2. Hypertension; blood pressure remains low end. 3. Anemia; s/p transfusion. Hgb back down to 6.7 this am. Being transfused. No obvious bleeding. 4. Hyperlipidemia; statin 5. Combined ischemic and nonischemic cardiomyopathy, status post CROP NUTRITION SCIENTIST-D ([employer]). Device check without significant arrhythmias that would cause syncopal episode. 6. Chronic systolic CHF; appears compensated. . 7. CAD; s/p previous PCI/stent placement. 8. PAFIB; not on tele. Heart tones regular. Previously on OAC. 9. DELVIS; On IVFs 10. Right distal femur fracture; s/p ORIF 11. PAD; s/p right BKA 12. H/o high PVC burden; recent started on antiarrhythmic therapy Recommendations Monitor H and H Transfused as warranted Continue to hold antiHTN therapy IVFs; monitor volume status No OAC/ASA with anemia Consider GI consult. Supportive care Justicifation of Admission Dx: Justifications for Admission: Justification of Admission Dx: Yes CHF: Cardiac Arrhythmias SUNDAR BOYER MD 11/11/19 1711: CARDIO Progress Notes Plan Plan Pt. seen and examined. Agree with above GRAVITY PROSPECTING OPERATOR note. He has had some LH/dizziness related to hypotension. Will stop Mexiletene and monitor. Will also transfuse. Supportive care. Device interrogation is unremarkable. DEBBY TILLMAN APRN Nov 11, 2019 13:11 SUNDAR BOYER MD Nov 11, 2019 17:11
--- NOTE | 2019-11-11 14:20 | PDOC ---
ORTHO PROGRESS NOTES Subjective His pain is tolerable. He has been doing some simple rehab exercises in bed Vitals Vital Signs Date Time Temp Pulse Resp B/P (MAP) Pulse Ox O2 Delivery O2 Flow Rate FiO2 11/11/19 11:04 97.5 86 18 111/58 97.5 11/11/19 11:00 95 Room Air Labs Laboratory Tests Test 11/09/19 14:32 11/09/19 16:13 11/09/19 16:58 11/09/19 18:00 Glucose (Fingerstick) 227 mg/dL (70-99) 193 mg/dL (70-99) 204 mg/dL (70-99) 212 mg/dL (70-99) Test 11/10/19 00:02 11/10/19 03:05 11/10/19 05:53 11/10/19 11:10 Glucose (Fingerstick) 253 mg/dL (70-99) 267 mg/dL (70-99) 244 mg/dL (70-99) White Blood Count 10.6 x10^3/uL (4.0-11.0) Red Blood Count 2.46 x10^6/uL (4.30-5.70) Hemoglobin 7.7 g/dL (13.0-17.5) Hematocrit 22.6 % (39.0-53.0) Mean Corpuscular Volume 92 fL (79-100) Mean Corpuscular Hemoglobin 31 pg (25-35) Mean Corpuscular Hemoglobin Concent 34 g/dL (31-37) Red Cell Distribution Width 14.4 % (11.5-14.5) Platelet Count 174 x10^3/uL (140-400) Sodium Level 139 mmol/L (136-145) Potassium Level 4.6 mmol/L (3.5-5.1) Chloride Level 105 mmol/L (98-107) Carbon Dioxide Level 21 mmol/L (21-32) Anion Gap 13 (6-14) Blood Urea Nitrogen 56 mg/dL (8-26) Creatinine 2.9 mg/dL (0.7-1.3) Estimated GFR (Cockcroft-Gault) 21.3 BUN/Creatinine Ratio 19 (6-20) Glucose Level 293 mg/dL (70-99) Calcium Level 7.4 mg/dL (8.5-10.1) Total Bilirubin 0.2 mg/dL (0.2-1.0) Aspartate Amino Transf (AST/SGOT) 28 U/L (15-37) Alanine Aminotransferase (ALT/SGPT) 15 U/L (16-63) Alkaline Phosphatase 64 U/L (46-116) Total Protein 5.5 g/dL (6.4-8.2) Albumin 2.6 g/dL (3.4-5.0) Albumin/Globulin Ratio 0.9 (1.0-1.7) Test 11/10/19 11:53 11/10/19 14:12 11/10/19 16:42 11/10/19 20:52 Hemoglobin 6.5 g/dL (13.0-17.5) 7.7 g/dL (13.0-17.5) Hematocrit 19.4 % (39.0-53.0) 22.9 % (39.0-53.0) Mean Corpuscular Hemoglobin Concent 34 g/dL (31-37) 34 g/dL (31-37) Sodium Level 139 mmol/L (136-145) Potassium Level 4.4 mmol/L (3.5-5.1) Chloride Level 106 mmol/L (98-107) Carbon Dioxide Level 19 mmol/L (21-32) Anion Gap 14 (6-14) Blood Urea Nitrogen 56 mg/dL (8-26) Creatinine 3.2 mg/dL (0.7-1.3) Estimated GFR (Cockcroft-Gault) 19.0 Glucose Level 261 mg/dL (70-99) Calcium Level 6.8 mg/dL (8.5-10.1) Creatine Kinase 979 U/L (39-308) Troponin I Quantitative 0.051 ng/mL (0.000-0.055) Glucose (Fingerstick) 249 mg/dL (70-99) 242 mg/dL (70-99) Test 11/11/19 04:35 11/11/19 07:57 11/11/19 10:58 White Blood Count 6.8 x10^3/uL (4.0-11.0) Red Blood Count 2.13 x10^6/uL (4.30-5.70) Hemoglobin 6.7 g/dL (13.0-17.5) Hematocrit 19.6 % (39.0-53.0) Mean Corpuscular Volume 92 fL (79-100) Mean Corpuscular Hemoglobin 32 pg (25-35) Mean Corpuscular Hemoglobin Concent 34 g/dL (31-37) Red Cell Distribution Width 14.4 % (11.5-14.5) Platelet Count 122 x10^3/uL (140-400) Sodium Level 140 mmol/L (136-145) Potassium Level 4.0 mmol/L (3.5-5.1) Chloride Level 109 mmol/L (98-107) Carbon Dioxide Level 19 mmol/L (21-32) Anion Gap 12 (6-14) Blood Urea Nitrogen 60 mg/dL (8-26) Creatinine 2.7 mg/dL (0.7-1.3) Estimated GFR (Cockcroft-Gault) 23.1 BUN/Creatinine Ratio 22 (6-20) Glucose Level 242 mg/dL (70-99) Calcium Level 6.7 mg/dL (8.5-10.1) Phosphorus Level 4.2 mg/dL (2.6-4.7) Total Bilirubin 0.1 mg/dL (0.2-1.0) Aspartate Amino Transf (AST/SGOT) 63 U/L (15-37) Alanine Aminotransferase (ALT/SGPT) 12 U/L (16-63) Alkaline Phosphatase 49 U/L (46-116) Creatine Kinase 1502 U/L (39-308) Total Protein 4.7 g/dL (6.4-8.2) Albumin 2.1 g/dL (3.4-5.0) Albumin/Globulin Ratio 0.8 (1.0-1.7) Glucose (Fingerstick) 224 mg/dL (70-99) 255 mg/dL (70-99) Laboratory Tests Test 11/10/19 16:42 11/10/19 20:52 11/11/19 04:35 11/11/19 07:57 Hemoglobin 7.7 g/dL (13.0-17.5) 6.7 g/dL (13.0-17.5) Hematocrit 22.9 % (39.0-53.0) 19.6 % (39.0-53.0) Mean Corpuscular Hemoglobin Concent 34 g/dL (31-37) 34 g/dL (31-37) Glucose (Fingerstick) 242 mg/dL (70-99) 224 mg/dL (70-99) White Blood Count 6.8 x10^3/uL (4.0-11.0) Red Blood Count 2.13 x10^6/uL (4.30-5.70) Mean Corpuscular Volume 92 fL (79-100) Mean Corpuscular Hemoglobin 32 pg (25-35) Red Cell Distribution Width 14.4 % (11.5-14.5) Platelet Count 122 x10^3/uL (140-400) Sodium Level 140 mmol/L (136-145) Potassium Level 4.0 mmol/L (3.5-5.1) Chloride Level 109 mmol/L (98-107) Carbon Dioxide Level 19 mmol/L (21-32) Anion Gap 12 (6-14) Blood Urea Nitrogen 60 mg/dL (8-26) Creatinine 2.7 mg/dL (0.7-1.3) Estimated GFR (Cockcroft-Gault) 23.1 BUN/Creatinine Ratio 22 (6-20) Glucose Level 242 mg/dL (70-99) Calcium Level 6.7 mg/dL (8.5-10.1) Phosphorus Level 4.2 mg/dL (2.6-4.7) Total Bilirubin 0.1 mg/dL (0.2-1.0) Aspartate Amino Transf (AST/SGOT) 63 U/L (15-37) Alanine Aminotransferase (ALT/SGPT) 12 U/L (16-63) Alkaline Phosphatase 49 U/L (46-116) Creatine Kinase 1502 U/L (39-308) Total Protein 4.7 g/dL (6.4-8.2) Albumin 2.1 g/dL (3.4-5.0) Albumin/Globulin Ratio 0.8 (1.0-1.7) Test 11/11/19 10:58 Glucose (Fingerstick) 255 mg/dL (70-99) Notes He is awake and alert in bed. Dressing is intact and fairly dry. Assessment and Plan He is okay for active range of motion but no weightbearing in his right lower extremity. He can transfer whenever a spot is available. He should be on anticoagulation. The drain can be removed and a surgical dressing placed, I discussed this with nursing this morning. MERLINE THOMPSON II, MD Nov 11, 2019 14:20
[2019-11-11] MEDS: oxyCODONE IR 5 MG TABLET PO PRN (17:36)
--- NOTE | 2019-11-11 22:01 | NUR ---
FSBS 223, pt self-administered 2.2 units from his existing insulin pump.
[2019-11-12] VITALS (7 sets, daily range): BP systolic 103–137; BP diastolic 51–67
[2019-11-12] MEDS: IV NORMAL SALINE 1000ML BAG 1,000 ML IV SCH ×2 (00:10→05:25)
[2019-11-12] MEDS: oxyCODONE IR 5 MG TABLET PO PRN (05:24)
[2019-11-12] MEDS: LEVOTHYROXINE 50 MCG TABLET PO SCH (05:24)
[2019-11-12 08:08] LABS: HEMATOCRIT 22.9 % (39.0-53.0); HEMOGLOBIN 7.8 g/dL (13.0-17.5); RED BLOOD COUNT 2.47 x10^6/uL (4.30-5.70); RED CELL DISTRIBUTION WIDTH 15.1 % (11.5-14.5); WHITE BLOOD COUNT 8.3 x10^3/uL (4.0-11.0)
--- NOTE | 2019-11-12 08:26 | NUR ---
Pt's FSBS 156 this am. Pt self administered 1.60 units from his insulin pump.
[2019-11-12] MEDS: MEXILITINE PO SCH (09:00)
[2019-11-12 09:09] LABS: CALCIUM 6.8 mg/dL (8.5-10.1); CREATININE 2.2 mg/dL (0.7-1.3); GFR 29.2; POTASSIUM 4.1 mmol/L (3.5-5.1)
--- NOTE | 2019-11-12 09:15 | NUR ---
Pt experiencing new onset of SOB. Vital signs 137/63, HR 89, RR 16, O2 100% on 2L NC. Recheck FSBS 148. Pt denies any pain. Family stated pt "became shaky while eating breakfast and seemed out of it." Dr. Suarez notified of these changes. Orders received for a STAT chest x-ray, 40 mg IV Lasix, and to stop IV fluids. Will continue to monitor pt very closely.
[2019-11-12] MEDS ORDERED: IPRATRPIUM/ALBUTEROL 0.5/2.5MG 3 ML NEBU. NEB PRN (09:45)
[2019-11-12] MEDS ORDERED: FUROSEMIDE 40 MG/4 ML VIAL. IVP ONE (09:45)
--- NOTE | 2019-11-12 09:46 | PDOC ---
SUBJECTIVE ROS More short of breath this am OBJECTIVE Vital Signs Vital Signs Date Time Temp Pulse Resp B/P (MAP) Pulse Ox O2 Delivery O2 Flow Rate FiO2 11/12/19 09:08 89 16 137/63 (87) 93 Nasal Cannula 2.0 11/12/19 06:28 97.8 97.8 I & 0 Intake and Output 11/12/19 06:59 Intake Total 2960 ml Output Total 1700 ml Balance 1260 ml Intake Oral 620 ml IV Total 1950 ml Blood Product IV Normal Saline Flush 390 ml Output Urine Total 1700 ml PHYSICAL EXAM Physical Exam GEN: Mild distress , More short of breath HEEN: OM moist, O2 by NC NECK: supple CVS: S1S2, RESP: , mildly labored GI: BS + ve, NO Bruit, Non Tender, Non Distended : No CVA tenderness, No Suprapubic Tenderness, Franks + NEURO- Grossly Normal EXT- Rt BKA, No LE edema Lt SKIN: post-surgical dressing on the distal femur DIAGNOSIS/ASSESSMENT Assessment & Plan DELVIS on CKD- at presentation to [facility] Cr 2.0-Increased to 3.2 Suspect ATN sec to Hypotension, CK mildly elevated , Renal function improving with IVF , UOP improved Supportive care, DC IVF, UA ordered on 11/09- Not done yet , Avoid Nephrotoxins, Strict I/O CKD stage 3- under Dr. 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 Device check with normal function, no significant arrhythmias Chronic systolic CHF; appears compensated. . CAD; s/p previous PCI/stent placement. PAFIB; v-pace with underlying SR PAD; s/p right BKA Discussed with Pt, and daughter COMMENT/RELEVANT DATA Meds Current Medications Medications (Trade) Dose Ordered Sig/Nona Start Time Stop Time Status Last Admin Dose Admin Albuterol/ Ipratropium (Duoneb) 3 ml PRN QID PRN 11/12/19 09:45 Atorvastatin Calcium (Lipitor) 40 mg DAILY 11/10/19 09:00 11/11/19 08:28 40 MG Bupivacaine HCl (Sensorcaine Mpf 0.5%) 30 ml STK-MED ONCE 11/09/19 14:23 11/09/19 14:24 DC Cefazolin Sodium/ Dextrose (Ancef 2gm Premix) 2 gm STK-MED ONCE 11/09/19 15:00 11/10/19 13:31 DC Dextrose (Dextrose 50%-Water Syringe) 12.5 gm PRN Q15MIN PRN 11/09/19 10:15 Dextrose/Sodium Chloride 1,000 ml @ 75 mls/hr [id number] 11/08/19 21:00 11/10/19 17:43 DC 11/10/19 03:33 75 MLS/HR Fish Oil (Fish Oil) 1,000 mg BID 11/10/19 09:00 11/11/19 22:00 1,000 MG Furosemide (Lasix) 40 mg 1X ONCE 11/12/19 09:45 11/12/19 09:46 Gabapentin (Neurontin) 600 mg TID 11/10/19 09:00 11/11/19 22:00 600 MG Insulin Human Lispro (HumaLOG) 3 units 1X ONCE 11/10/19 06:00 11/10/19 06:01 DC 11/10/19 06:46 3 UNITS Levothyroxine Sodium (Synthroid) 50 mcg DAILY06 11/10/19 09:00 11/12/19 05:24 50 MCG Lidocaine HCl (Lidocaine 1% 20ml Vial) 20 ml STK-MED ONCE 11/09/19 14:23 11/09/19 14:24 DC Lidocaine HCl (Lidocaine Pf 2% Vial) 5 ml STK-MED ONCE 11/09/19 14:44 11/09/19 14:44 DC Linezolid/Dextrose 300 ml @ 300 mls/hr Q12HR 11/09/19 11:00 11/10/19 10:42 DC 11/10/19 10:02 300 MLS/HR Mexiletine HCl (Mexitil) 150 mg BID 11/09/19 21:00 11/10/19 11:21 DC Morphine Sulfate (Morphine Sulfate) 4 mg PRN Q4HRS PRN 11/08/19 21:30 11/11/19 03:41 4 MG Morphine Sulfate 5 mg/Ketorolac Tromethamine 30 mg/Ropivacaine 60 ml/Epinephrine HCl 0.5 mg/Sodium Chloride 100 ml @ 100 mls/hr 1X ONCE 11/09/19 15:00 11/09/19 15:59 DC 11/09/19 15:16 Multivitamins (Thera M Plus) 1 tab DAILY 11/10/19 09:00 11/11/19 08:28 1 TAB Non-Formulary Medication 1 ea BID 11/10/19 11:30 11/10/19 20:26 1 EA Non-Formulary Medication (Cinnamon Bark (Cinnamon)) 1,000 mg DAILY 11/10/19 09:00 UNV Non-Formulary Medication (Mexiletine Hcl ) 150 mg BID 11/10/19 09:00 UNV Ondansetron HCl (Zofran) 4 mg PRN Q4HRS PRN 11/09/19 18:15 11/09/19 22:07 4 MG Oxycodone HCl (Roxicodone) 5 mg PRN Q4HRS PRN 11/11/19 11:30 11/12/19 05:24 5 MG Phenylephrine HCl (Khang-Synephrine Inj) 10 mg STK-MED ONCE 11/09/19 15:35 11/09/19 15:36 DC Phenylephrine HCl (PHENYLEPHRINE in 0.9% NACL PF) 1 mg STK-MED ONCE 11/09/19 14:45 11/09/19 14:45 DC Piperacillin Sod/ Tazobactam Sod 2.25 gm/Sodium Chloride 50 ml @ 100 mls/hr Q8HRS 11/09/19 10:00 11/10/19 10:42 DC 11/10/19 06:41 100 MLS/HR Prochlorperazine Edisylate (Compazine) 5 mg PACU PRN PRN 11/09/19 14:15 11/09/19 20:00 DC Propofol (Diprivan) 200 mg STK-MED ONCE 11/09/19 14:44 11/09/19 14:44 DC Ringer's Solution 1,000 ml @ 30 mls/hr Q24H 11/09/19 14:08 11/10/19 02:07 DC Sevoflurane (Ultane) 60 ml STK-MED ONCE 11/09/19 14:45 11/09/19 14:45 DC Sodium Chloride 500 ml @ 500 mls/hr 1X ONCE 11/10/19 12:00 11/10/19 12:59 DC 11/10/19 11:30 500 MLS/HR Lab Laboratory Tests Test 11/11/19 10:58 11/11/19 16:20 11/11/19 17:13 11/11/19 20:46 Glucose (Fingerstick) 255 mg/dL (70-99) 275 mg/dL (70-99) 223 mg/dL (70-99) Hemoglobin 8.3 g/dL (13.0-17.5) Hematocrit 23.5 % (39.0-53.0) Test 11/12/19 06:45 11/12/19 08:26 11/12/19 09:05 White Blood Count 8.3 x10^3/uL (4.0-11.0) Red Blood Count 2.47 x10^6/uL (4.30-5.70) Hemoglobin 7.8 g/dL (13.0-17.5) Hematocrit 22.9 % (39.0-53.0) Mean Corpuscular Volume 93 fL (79-100) Mean Corpuscular Hemoglobin 31 pg (25-35) Mean Corpuscular Hemoglobin Concent 34 g/dL (31-37) Red Cell Distribution Width 15.1 % (11.5-14.5) Platelet Count 137 x10^3/uL (140-400) Sodium Level 141 mmol/L (136-145) Potassium Level 4.1 mmol/L (3.5-5.1) Chloride Level 110 mmol/L (98-107) Carbon Dioxide Level 18 mmol/L (21-32) Anion Gap 13 (6-14) Blood Urea Nitrogen 55 mg/dL (8-26) Creatinine 2.2 mg/dL (0.7-1.3) Estimated GFR (Cockcroft-Gault) 29.2 Glucose Level 161 mg/dL (70-99) Calcium Level 6.8 mg/dL (8.5-10.1) Creatine Kinase 1465 U/L (39-308) Glucose (Fingerstick) 156 mg/dL (70-99) 148 mg/dL (70-99) Results All relevant outside records, renal labs, imaging studies, telemetry/EKG's were reviewed. Justicifation of Admission Dx: Justifications for Admission: Justification of Admission Dx: Yes CHF: Cardiac Arrhythmias WILLIAM TUCKER MD Nov 12, 2019 09:46
[2019-11-12] MEDS: ATORVASTATIN CALCIUM 40 MG TABLET. PO SCH (09:59)
[2019-11-12] MEDS: OMEGA-3 FATTY ACIDS/FISH OIL 1,000 MG CAPSULE. PO SCH ×2 (09:59→20:57)
[2019-11-12] MEDS: GABAPENTIN 300 MG CAPSULE. PO SCH (09:59)
[2019-11-12] MEDS: MULTIVITAMIN with MINERAL TABLET. PO SCH (09:59)
--- NOTE | 2019-11-12 10:23 | RAD ---
EXAM: CHEST 1 VIEW History: Shortness of breath COMPARISON: None available. TECHNIQUE: Single portable radiograph of the chest FINDINGS: Mild cardiomegaly. Left-sided cardiac pacer is identified. Right infrahilar opacity identified measuring 4 cm could be a mass or prominent appearing pulmonary vasculature. Small opacity identified in the right suprahilar region. Mild diffuse prominent bilateral interstitial lung markings likely interstitial infiltrates or congestive changes. IMPRESSION: 1. Right infrahilar opacity identified measuring 4 cm could be a mass or prominent appearing pulmonary vasculature. Small opacity identified in the right suprahilar region. Recommend CT chest for further evaluation. Electronically signed by: Mauro Chan MD (11/12/2019 10:21 AM) [id number]
--- NOTE | 2019-11-12 10:31 | PDOC ---
DEBBY TILLMAN [employer]CHO[employer] COACH 11/12/19 1031: CARDIO Progress Notes Date and Time Date of Service 11/12/19 Time of Evaluation 1025 Subjective Subjective: No Chest Pain, Other (more drowsy, SOA this am) Vitals Vitals Vital Signs Date Time Temp Pulse Resp B/P (MAP) Pulse Ox O2 Delivery O2 Flow Rate FiO2 11/12/19 09:48 96 Nasal Cannula 2.0 11/12/19 09:08 89 16 137/63 (87) 11/12/19 06:28 97.8 97.8 Weight Weight [ ] Input and Output Intake and Output Intake and Output 11/12/19 07:00 Intake Total 2960 ml Output Total 1700 ml Balance 1260 ml Intake Oral 620 ml IV Total 1950 ml Blood Product IV Normal Saline Flush 390 ml Output Urine Total 1700 ml Laboratory Labs Laboratory Tests Test 11/11/19 10:58 11/11/19 16:20 11/11/19 17:13 11/11/19 20:46 Glucose (Fingerstick) 255 mg/dL (70-99) 275 mg/dL (70-99) 223 mg/dL (70-99) Hemoglobin 8.3 g/dL (13.0-17.5) Hematocrit 23.5 % (39.0-53.0) Test 11/12/19 06:45 11/12/19 08:26 11/12/19 09:05 White Blood Count 8.3 x10^3/uL (4.0-11.0) Red Blood Count 2.47 x10^6/uL (4.30-5.70) Hemoglobin 7.8 g/dL (13.0-17.5) Hematocrit 22.9 % (39.0-53.0) Mean Corpuscular Volume 93 fL (79-100) Mean Corpuscular Hemoglobin 31 pg (25-35) Mean Corpuscular Hemoglobin Concent 34 g/dL (31-37) Red Cell Distribution Width 15.1 % (11.5-14.5) Platelet Count 137 x10^3/uL (140-400) Sodium Level 141 mmol/L (136-145) Potassium Level 4.1 mmol/L (3.5-5.1) Chloride Level 110 mmol/L (98-107) Carbon Dioxide Level 18 mmol/L (21-32) Anion Gap 13 (6-14) Blood Urea Nitrogen 55 mg/dL (8-26) Creatinine 2.2 mg/dL (0.7-1.3) Estimated GFR (Cockcroft-Gault) 29.2 Glucose Level 161 mg/dL (70-99) Calcium Level 6.8 mg/dL (8.5-10.1) Creatine Kinase 1465 U/L (39-308) Glucose (Fingerstick) 156 mg/dL (70-99) 148 mg/dL (70-99) Physical Exam HEENT: Neck Supple W Full Motion Chest: Symmetric LUNGS: Other (diminished bases) Heart: S1S2, RRR (V-paced with underlying SR) Abdomen: Soft N/T Extremities: No Edema Neurology: alert, other (drowsy) Assessment Assessment 1. Near syncope; episode x2 in setting of hypotension, hypovolemia 2. Hypertension; blood pressure remains low end. 3. Anemia; s/p PRBC's x2. 4. Hyperlipidemia; statin 5. 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 Device check with normal function, no significant arrhythmias. Recent echo with LV EF recovery as noted below 6. Acute on chronic systolic CHF; s/p IV Lasix this am 7. CAD; s/p previous PCI/stent placement. 8. PAFIB; v-pace with underlying SR 9. DELVIS; improved 10. Right distal femur fracture; s/p ORIF 11. PAD; s/p right BKA 12. H/o high PVC burden Recommendations Monitor H and H IVF discontinued; s/p IV Lasix. Additional PRN Continue to hold antiHTN therapy Mexiletine discontinued No OAC/ASA with anemia Supportive care Echocardiogram at 11/07/19 The left ventricle is normal in size with borderline normal function, estimated ejection fraction is 50-55% The right ventricle is normal in size, mildly reduced function. Pacemaker or ICD lead is noted in right atrium and right ventricle The left atrium is mildly dilated, right atrium is normal in size There are no significant valvular abnormalities. The estimated PA systolic pressure is 28 mmHg Justicifation of Admission Dx: Justifications for Admission: Justification of Admission Dx: Yes CHF: Cardiac Arrhythmias SUNDAR BOYER MD 11/13/19 1157: CARDIO Progress Notes Plan Plan Late entry for 11/12/2019 Pt. seen and examined. Agree with above. Hold home mexiletine. Supportive care. Thanks DEBBY TILLMAN APRN Nov 12, 2019 10:31 SUNDAR BOYER MD Nov 13, 2019 11:57
--- NOTE | 2019-11-12 12:15 | NUR ---
Pt's FSBS 128 at lunchtime. Pt stated he was not going to dose himself. He stated if he decides to eat he will dose himself and follow-up with this RN.
[2019-11-12] MEDS: ONDANSETRON PF 4 MG/2 ML VIAL. IVP PRN (12:32)
--- NOTE | 2019-11-12 13:15 | NUR ---
Pt reports to this RN that he decided to have a shake at lunch and dosed himself with 3.70 units according to his insulin pump. Will monitor pt.
--- NOTE | 2019-11-12 13:25 | NUR ---
SS following up with discharge planning. SS reviewed pt chart and discussed with pt RN. Pt is having shortness of breath today and now requiring oxygen. PT/OT on hold today due to shortness of breath. Pt has no home oxygen at home. SS will continue to follow for discharge planning.
--- NOTE | 2019-11-12 14:14 | RAD ---
Bilateral lower extremity venous doppler ultrasound History: Acute hypoxic respiratory failure, recent surgery Comparison: None Findings: Multiple grayscale, color, and duplex spectral analysis sonographic images were acquired of the bilateral lower extremity veins to evaluate for the presence of DVT. There is normal phasicity. Normal compression, color-flow, and augmentation is demonstrated from the bilateral common femoral through the superficial femoral veins, also patent left popliteal vein. There has been below the knee amputation on the right. There is segmental visualization of left calf veins. Impression: 1. No thrombus is demonstrated of the lower extremity veins on either side. Electronically signed by: Fabio Trevizo MD (11/12/2019 2:11 PM) [id number]
--- NOTE | 2019-11-12 14:17 | RAD ---
Examination: CT HEAD WO CONTRAST History: Reason: altered mental status / Spl. Instructions: / History: Comparison/Correlation: 07/01/2019 CT head without contrast Findings: Axial images of the head were obtained without contrast. Coronal reformatted images were provided. Atrophy is present. No intracranial hemorrhage, midline shift, or mass effect. Small left maxillary sinus mucous retention cyst is present. Cavernous carotid calcifications are present bilaterally. Impression: No suspicious intracranial process. Electronically signed by: Grant De Leon MD (11/12/2019 2:14 PM) [id number]
--- NOTE | 2019-11-12 14:19 | PDOC ---
PULMONARY PROGRESS NOTES Vitals Vital Signs Date Time Temp Pulse Resp B/P (MAP) Pulse Ox O2 Delivery O2 Flow Rate FiO2 11/12/19 11:00 98.1 87 18 128/62 (84) 100 Nasal Cannula 2.0 98.1 Labs Laboratory Tests Test 11/10/19 16:42 11/10/19 20:52 11/11/19 04:35 11/11/19 07:57 Hemoglobin 7.7 g/dL (13.0-17.5) 6.7 g/dL (13.0-17.5) Hematocrit 22.9 % (39.0-53.0) 19.6 % (39.0-53.0) Mean Corpuscular Hemoglobin Concent 34 g/dL (31-37) 34 g/dL (31-37) Glucose (Fingerstick) 242 mg/dL (70-99) 224 mg/dL (70-99) White Blood Count 6.8 x10^3/uL (4.0-11.0) Red Blood Count 2.13 x10^6/uL (4.30-5.70) Mean Corpuscular Volume 92 fL (79-100) Mean Corpuscular Hemoglobin 32 pg (25-35) Red Cell Distribution Width 14.4 % (11.5-14.5) Platelet Count 122 x10^3/uL (140-400) Sodium Level 140 mmol/L (136-145) Potassium Level 4.0 mmol/L (3.5-5.1) Chloride Level 109 mmol/L (98-107) Carbon Dioxide Level 19 mmol/L (21-32) Anion Gap 12 (6-14) Blood Urea Nitrogen 60 mg/dL (8-26) Creatinine 2.7 mg/dL (0.7-1.3) Estimated GFR (Cockcroft-Gault) 23.1 BUN/Creatinine Ratio 22 (6-20) Glucose Level 242 mg/dL (70-99) Calcium Level 6.7 mg/dL (8.5-10.1) Phosphorus Level 4.2 mg/dL (2.6-4.7) Total Bilirubin 0.1 mg/dL (0.2-1.0) Aspartate Amino Transf (AST/SGOT) 63 U/L (15-37) Alanine Aminotransferase (ALT/SGPT) 12 U/L (16-63) Alkaline Phosphatase 49 U/L (46-116) Creatine Kinase 1502 U/L (39-308) Total Protein 4.7 g/dL (6.4-8.2) Albumin 2.1 g/dL (3.4-5.0) Albumin/Globulin Ratio 0.8 (1.0-1.7) Test 11/11/19 10:58 11/11/19 16:20 11/11/19 17:13 11/11/19 20:46 Glucose (Fingerstick) 255 mg/dL (70-99) 275 mg/dL (70-99) 223 mg/dL (70-99) Hemoglobin 8.3 g/dL (13.0-17.5) Hematocrit 23.5 % (39.0-53.0) Test 11/12/19 06:45 11/12/19 08:26 11/12/19 09:05 11/12/19 12:12 White Blood Count 8.3 x10^3/uL (4.0-11.0) Red Blood Count 2.47 x10^6/uL (4.30-5.70) Hemoglobin 7.8 g/dL (13.0-17.5) Hematocrit 22.9 % (39.0-53.0) Mean Corpuscular Volume 93 fL (79-100) Mean Corpuscular Hemoglobin 31 pg (25-35) Mean Corpuscular Hemoglobin Concent 34 g/dL (31-37) Red Cell Distribution Width 15.1 % (11.5-14.5) Platelet Count 137 x10^3/uL (140-400) Sodium Level 141 mmol/L (136-145) Potassium Level 4.1 mmol/L (3.5-5.1) Chloride Level 110 mmol/L (98-107) Carbon Dioxide Level 18 mmol/L (21-32) Anion Gap 13 (6-14) Blood Urea Nitrogen 55 mg/dL (8-26) Creatinine 2.2 mg/dL (0.7-1.3) Estimated GFR (Cockcroft-Gault) 29.2 Glucose Level 161 mg/dL (70-99) Calcium Level 6.8 mg/dL (8.5-10.1) Creatine Kinase 1465 U/L (39-308) Glucose (Fingerstick) 156 mg/dL (70-99) 148 mg/dL (70-99) 128 mg/dL (70-99) Laboratory Tests Test 11/11/19 16:20 11/11/19 17:13 11/11/19 20:46 11/12/19 06:45 Hemoglobin 8.3 g/dL (13.0-17.5) 7.8 g/dL (13.0-17.5) Hematocrit 23.5 % (39.0-53.0) 22.9 % (39.0-53.0) Glucose (Fingerstick) 275 mg/dL (70-99) 223 mg/dL (70-99) White Blood Count 8.3 x10^3/uL (4.0-11.0) Red Blood Count 2.47 x10^6/uL (4.30-5.70) Mean Corpuscular Volume 93 fL (79-100) Mean Corpuscular Hemoglobin 31 pg (25-35) Mean Corpuscular Hemoglobin Concent 34 g/dL (31-37) Red Cell Distribution Width 15.1 % (11.5-14.5) Platelet Count 137 x10^3/uL (140-400) Sodium Level 141 mmol/L (136-145) Potassium Level 4.1 mmol/L (3.5-5.1) Chloride Level 110 mmol/L (98-107) Carbon Dioxide Level 18 mmol/L (21-32) Anion Gap 13 (6-14) Blood Urea Nitrogen 55 mg/dL (8-26) Creatinine 2.2 mg/dL (0.7-1.3) Estimated GFR (Cockcroft-Gault) 29.2 Glucose Level 161 mg/dL (70-99) Calcium Level 6.8 mg/dL (8.5-10.1) Creatine Kinase 1465 U/L (39-308) Test 11/12/19 08:26 11/12/19 09:05 11/12/19 12:12 Glucose (Fingerstick) 156 mg/dL (70-99) 148 mg/dL (70-99) 128 mg/dL (70-99) Medications Active Scripts Medications Dose Route/Sig Max Daily Dose Days Date Category Carvedilol 25 Mg Tablet 25 Mg PO BIDWMEALS 11/08/19 Reported Cinnamon (Cinnamon Bark) 500 Mg Capsule 1,000 Mg PO DAILY 11/08/19 Reported Once Daily (Multivitamin) 1 Each Tablet 1 Tab PO DAILY 30 11/08/19 Reported Fish Oil 1,000 Mg Capsule ([place]-3 Fatty Acids/Fish Oil) 1 Each Capsule 2 Each PO BID 11/08/19 Reported Synthroid (Levothyroxine Sodium) 50 Mcg Tablet 1 Tab PO DAILY 11/08/19 Reported Atorvastatin Calcium 40 Mg Tablet 1 Tab PO DAILY 11/08/19 Reported Lisinopril 20 Mg Tablet 1 Tab PO DAILY 11/08/19 Reported Mexiletine Hcl 150 Mg Capsule 150 Mg PO BID 11/08/19 Reported Eliquis (Apixaban) 5 Mg Tablet 5 Mg PO BID 11/08/19 Reported Impression . Reviewed old records, and chest x-ray, Patient in CT obtaining a scan Full report to be dictated CECELIA RINCON MD Nov 12, 2019 14:19
[2019-11-12 16:21] LABS: BASE EXCESS ABG -5 mmol/L (-3-3); FIO2 ABG 28; HCO3 ABG 19 mmol/L (21-28); PCO2 ABG 31 mmHg (35-46); PO2 ABG 70 mmHg (65-108); SAT O2 ABG 93 % (92-99)
--- NOTE | 2019-11-12 16:58 | RAD ---
Examination: CT CHEST ABDOMEN PELVIS WO History: Reason: possible retroperitoneal bleeding, recent surgery for femur fx / Spl. Instructions: / History: Comparison/Correlation: None Findings: Axial images of the chest, abdomen, postoperative and/or contrast. Sagittal and coronal reformatted images were provided. Multiple lead left-sided pacemaker is present. Postoperative cervical spine fusion is noted. Small to moderate size bilateral pleural effusions are present. Adjacent bibasilar lower lobe atelectasis is present. Atelectasis/consolidation posterior to the right hilum also seen. Patchy nodular infiltrates involving the right upper lung. Extensive coronary arterial calcification is present. Liver, spleen, pancreas, adrenal glands, and kidneys are unremarkable. Left renal lower pole cysts are present and do not require follow-up. The gallbladder fossa is unremarkable. No bowel obstruction or extraluminal gas. Appendix is normal. Moderate to large quantity of stool in the colon noted. Franks catheter is present within urinary bladder which is mostly decompressed. No ascites or pelvic free fluid. Minimal presacral edema is present. No retroperitoneal hemorrhage. No abdominal aortic aneurysm. Mild anasarca seen. Multilevel disc space narrowing of the lower thoracic spine and of the lumbar spine evident. Bony encroachment on the neural foramina at some levels of the lower lumbar spine seen. Impression: No retroperitoneal hemorrhage identified. No ascites. Bilateral pleural effusions with adjacent atelectasis. Right posterior hilar consolidation or atelectasis. Patchy infiltrates along the right upper lung field. Interval follow-up to assess resolution recommended. Mild anasarca. PQRS Compliance Statement: One or more of the following individualized dose reduction techniques were utilized for this examination: 1. Automated exposure control 2. Adjustment of the mA and/or kV according to patient size 3. Use of iterative reconstruction technique Electronically signed by: Grant De Leon MD (11/12/2019 4:55 PM) [id number]
--- NOTE | 2019-11-12 17:39 | NUR ---
Pt's dinner FSBS 153. Pt self administered 1.2 units from his insulin pump.
[2019-11-12 18:22] LABS: HEMATOCRIT 25.7 % (39.0-53.0); HEMOGLOBIN 9.1 g/dL (13.0-17.5)
[2019-11-12] MEDS: DOCUSATE SODIUM 100 MG CAPSULE. PO SCH (20:57)
[2019-11-13 03:00] VITALS: BP 127/61
[2019-11-13 04:13] LABS: HEMATOCRIT 22.6 % (39.0-53.0); HEMOGLOBIN 7.8 g/dL (13.0-17.5); RED BLOOD COUNT 2.44 x10^6/uL (4.30-5.70); RED CELL DISTRIBUTION WIDTH 15.1 % (11.5-14.5); WHITE BLOOD COUNT 8.1 x10^3/uL (4.0-11.0)
[2019-11-13 04:38] LABS: ALBUMIN 2.1 g/dL (3.4-5.0); ALBUMIN/GLOBULIN RATIO 0.6 (1.0-1.7); CALCIUM 7.5 mg/dL (8.5-10.1); CREATININE 1.8 mg/dL (0.7-1.3); GFR 36.9; POTASSIUM 4.1 mmol/L (3.5-5.1); TOTAL BILIRUBIN 0.4 mg/dL (0.2-1.0); TOTAL PROTEIN 5.4 g/dL (6.4-8.2)
[2019-11-13] MEDS: LEVOTHYROXINE 50 MCG TABLET PO SCH (06:29)
[2019-11-13 07:15] VITALS: BP 109/84
[2019-11-13] MEDS: MULTIVITAMIN with MINERAL TABLET. PO SCH (09:10)
[2019-11-13] MEDS: ATORVASTATIN CALCIUM 40 MG TABLET. PO SCH (09:10)
[2019-11-13] MEDS: OMEGA-3 FATTY ACIDS/FISH OIL 1,000 MG CAPSULE. PO SCH ×2 (09:10→21:13)
[2019-11-13] MEDS: DOCUSATE SODIUM 100 MG CAPSULE. PO SCH ×2 (09:10→21:13)
--- NOTE | 2019-11-13 09:19 | NUR ---
FSBS 128 this am. Pt reported he administered correction dose of 0.3 units and bolus dose of 5.1 units per insulin pump. Pt ate 75% of his breakfast. Will monitor pt.
--- NOTE | 2019-11-13 10:29 | PDOC ---
PULMONARY PROGRESS NOTES Vitals Vital Signs Date Time Temp Pulse Resp B/P (MAP) Pulse Ox O2 Delivery O2 Flow Rate FiO2 11/13/19 07:30 Nasal Cannula 1.0 11/13/19 07:15 98.2 92 18 109/84 (92) 97 98.2 Labs Laboratory Tests Test 11/11/19 10:58 11/11/19 16:20 11/11/19 17:13 11/11/19 20:46 Glucose (Fingerstick) 255 mg/dL (70-99) 275 mg/dL (70-99) 223 mg/dL (70-99) Hemoglobin 8.3 g/dL (13.0-17.5) Hematocrit 23.5 % (39.0-53.0) Test 11/12/19 06:45 11/12/19 08:26 11/12/19 09:05 11/12/19 12:12 White Blood Count 8.3 x10^3/uL (4.0-11.0) Red Blood Count 2.47 x10^6/uL (4.30-5.70) Hemoglobin 7.8 g/dL (13.0-17.5) Hematocrit 22.9 % (39.0-53.0) Mean Corpuscular Volume 93 fL (79-100) Mean Corpuscular Hemoglobin 31 pg (25-35) Mean Corpuscular Hemoglobin Concent 34 g/dL (31-37) Red Cell Distribution Width 15.1 % (11.5-14.5) Platelet Count 137 x10^3/uL (140-400) Sodium Level 141 mmol/L (136-145) Potassium Level 4.1 mmol/L (3.5-5.1) Chloride Level 110 mmol/L (98-107) Carbon Dioxide Level 18 mmol/L (21-32) Anion Gap 13 (6-14) Blood Urea Nitrogen 55 mg/dL (8-26) Creatinine 2.2 mg/dL (0.7-1.3) Estimated GFR (Cockcroft-Gault) 29.2 Glucose Level 161 mg/dL (70-99) Calcium Level 6.8 mg/dL (8.5-10.1) Creatine Kinase 1465 U/L (39-308) Glucose (Fingerstick) 156 mg/dL (70-99) 148 mg/dL (70-99) 128 mg/dL (70-99) Test 11/12/19 16:00 11/12/19 16:35 11/12/19 17:20 11/12/19 20:56 O2 Saturation 93 % (92-99) Arterial Blood pH 7.41 (7.35-7.45) Arterial Blood pCO2 at Patient Temp 31 mmHg (35-46) Arterial Blood pO2 at Patient Temp 70 mmHg (65-108) Arterial Blood HCO3 19 mmol/L (21-28) Arterial Blood Base Excess -5 mmol/L (-3-3) FiO2 28 Glucose (Fingerstick) 153 mg/dL (70-99) 198 mg/dL (70-99) Hemoglobin 9.1 g/dL (13.0-17.5) Hematocrit 25.7 % (39.0-53.0) Test 11/13/19 03:20 11/13/19 07:11 White Blood Count 8.1 x10^3/uL (4.0-11.0) Red Blood Count 2.44 x10^6/uL (4.30-5.70) Hemoglobin 7.8 g/dL (13.0-17.5) Hematocrit 22.6 % (39.0-53.0) Mean Corpuscular Volume 92 fL (79-100) Mean Corpuscular Hemoglobin 32 pg (25-35) Mean Corpuscular Hemoglobin Concent 34 g/dL (31-37) Red Cell Distribution Width 15.1 % (11.5-14.5) Platelet Count 139 x10^3/uL (140-400) Sodium Level 139 mmol/L (136-145) Potassium Level 4.1 mmol/L (3.5-5.1) Chloride Level 108 mmol/L (98-107) Carbon Dioxide Level 19 mmol/L (21-32) Anion Gap 12 (6-14) Blood Urea Nitrogen 51 mg/dL (8-26) Creatinine 1.8 mg/dL (0.7-1.3) Estimated GFR (Cockcroft-Gault) 36.9 BUN/Creatinine Ratio 28 (6-20) Glucose Level 149 mg/dL (70-99) Calcium Level 7.5 mg/dL (8.5-10.1) Total Bilirubin 0.4 mg/dL (0.2-1.0) Aspartate Amino Transf (AST/SGOT) 134 U/L (15-37) Alanine Aminotransferase (ALT/SGPT) 18 U/L (16-63) Alkaline Phosphatase 59 U/L (46-116) Creatine Kinase 1154 U/L (39-308) Total Protein 5.4 g/dL (6.4-8.2) Albumin 2.1 g/dL (3.4-5.0) Albumin/Globulin Ratio 0.6 (1.0-1.7) Glucose (Fingerstick) 128 mg/dL (70-99) Laboratory Tests Test 11/12/19 12:12 11/12/19 16:00 11/12/19 16:35 11/12/19 17:20 Glucose (Fingerstick) 128 mg/dL (70-99) 153 mg/dL (70-99) O2 Saturation 93 % (92-99) Arterial Blood pH 7.41 (7.35-7.45) Arterial Blood pCO2 at Patient Temp 31 mmHg (35-46) Arterial Blood pO2 at Patient Temp 70 mmHg (65-108) Arterial Blood HCO3 19 mmol/L (21-28) Arterial Blood Base Excess -5 mmol/L (-3-3) FiO2 28 Hemoglobin 9.1 g/dL (13.0-17.5) Hematocrit 25.7 % (39.0-53.0) Test 11/12/19 20:56 11/13/19 03:20 11/13/19 07:11 Glucose (Fingerstick) 198 mg/dL (70-99) 128 mg/dL (70-99) White Blood Count 8.1 x10^3/uL (4.0-11.0) Red Blood Count 2.44 x10^6/uL (4.30-5.70) Hemoglobin 7.8 g/dL (13.0-17.5) Hematocrit 22.6 % (39.0-53.0) Mean Corpuscular Volume 92 fL (79-100) Mean Corpuscular Hemoglobin 32 pg (25-35) Mean Corpuscular Hemoglobin Concent 34 g/dL (31-37) Red Cell Distribution Width 15.1 % (11.5-14.5) Platelet Count 139 x10^3/uL (140-400) Sodium Level 139 mmol/L (136-145) Potassium Level 4.1 mmol/L (3.5-5.1) Chloride Level 108 mmol/L (98-107) Carbon Dioxide Level 19 mmol/L (21-32) Anion Gap 12 (6-14) Blood Urea Nitrogen 51 mg/dL (8-26) Creatinine 1.8 mg/dL (0.7-1.3) Estimated GFR (Cockcroft-Gault) 36.9 BUN/Creatinine Ratio 28 (6-20) Glucose Level 149 mg/dL (70-99) Calcium Level 7.5 mg/dL (8.5-10.1) Total Bilirubin 0.4 mg/dL (0.2-1.0) Aspartate Amino Transf (AST/SGOT) 134 U/L (15-37) Alanine Aminotransferase (ALT/SGPT) 18 U/L (16-63) Alkaline Phosphatase 59 U/L (46-116) Creatine Kinase 1154 U/L (39-308) Total Protein 5.4 g/dL (6.4-8.2) Albumin 2.1 g/dL (3.4-5.0) Albumin/Globulin Ratio 0.6 (1.0-1.7) Medications Active Scripts Medications Dose Route/Sig Max Daily Dose Days Date Category Carvedilol 25 Mg Tablet 25 Mg PO BIDWMEALS 11/08/19 Reported Cinnamon (Cinnamon Bark) 500 Mg Capsule 1,000 Mg PO DAILY 11/08/19 Reported Once Daily (Multivitamin) 1 Each Tablet 1 Tab PO DAILY 30 11/08/19 Reported Fish Oil 1,000 Mg Capsule ([place]-3 Fatty Acids/Fish Oil) 1 Each Capsule 2 Each PO BID 11/08/19 Reported Synthroid (Levothyroxine Sodium) 50 Mcg Tablet 1 Tab PO DAILY 11/08/19 Reported Atorvastatin Calcium 40 Mg Tablet 1 Tab PO DAILY 11/08/19 Reported Lisinopril 20 Mg Tablet 1 Tab PO DAILY 11/08/19 Reported Mexiletine Hcl 150 Mg Capsule 150 Mg PO BID 11/08/19 Reported Eliquis (Apixaban) 5 Mg Tablet 5 Mg PO BID 11/08/[address] CHEST Impression: No retroperitoneal hemorrhage identified. No ascites. Bilateral pleural effusions with adjacent atelectasis. Right posterior hilar consolidation or atelectasis. Patchy infiltrates along the right upper lung field. Interval follow-up to assess resolution recommended. Mild anasarca. CECELIA RINCON MD Nov 13, 2019 10:29
--- NOTE | 2019-11-13 11:00 | PDOC ---
SUBJECTIVE ROS States feeling better, Not short of breath , No other complaints OBJECTIVE Vital Signs Vital Signs Date Time Temp Pulse Resp B/P (MAP) Pulse Ox O2 Delivery O2 Flow Rate FiO2 11/13/19 07:30 Nasal Cannula 1.0 11/13/19 07:15 98.2 92 18 109/84 (92) 97 98.2 I & 0 Intake and Output 11/13/19 07:00 Intake Total 720 ml Output Total 1870 ml Balance -1150 ml Intake Oral 120 ml IV Total 600 ml Output Urine Total 1750 ml Drainage Total 120 ml PHYSICAL EXAM Physical Exam GEN: NAD HEEN: OM moist, on RA NECK: supple CVS: S1S2, RESP: , mildly labored GI: BS + ve, NO Bruit, Non Tender, Non Distended : No CVA tenderness, No Suprapubic Tenderness, Franks + NEURO- Grossly Normal EXT- Rt BKA, No LE edema Lt SKIN: post-surgical dressing on the distal femur DIAGNOSIS/ASSESSMENT Assessment & Plan DELVIS on CKD- at presentation to [facility] Cr 2.0-Increased to 3.2 Suspect ATN sec to Hypotension, mild Rhabdo , Renal function improving close to baseline , UOP improved Supportive care, UA ordered on 11/09- Not done , Avoid Nephrotoxins Mild Rhabdo- CK improving CKD stage 3- under Dr. Carrion's care, Baseline Cr per Pt 1.6-1.7 Near syncope; episode x2 in setting of hypotension Shortness of breath -this am, Got Lasix x 1 , DC IVF Acute comminuted right distal femur fracture, right below-knee amputation s/p- S/P Open reduction internal fixation right intra-articular distal femoral fracture DM HTN - On 3 antihypertensives at home BP low since hospitalization, has been as low 80-90's since presentation , better Cardiology managing Anemia- Acute drop in Hgb ,recd PRBC x2 CT abdomen - No retroperitoneal hemorrhage identified CT scan- Bilateral pleural effusions Patchy infiltrates along the right upper lung field. Per Pulm H/o combined ICM, NICM; s/p TRANSCRIPTION COORDINATOR-D (Sooqini). Device check with normal function, no significant arrhythmias Chronic systolic CHF; appears compensated. . CAD; s/p previous PCI/stent placement. PAFIB; v-pace with underlying SR PAD; s/p right BKA COMMENT/RELEVANT DATA Meds Current Medications Medications (Trade) Dose Ordered Sig/Nona Start Time Stop Time Status Last Admin Dose Admin Albuterol/ Ipratropium (Duoneb) 3 ml PRN QID PRN 11/12/19 09:45 11/12/19 09:48 3 ML Atorvastatin Calcium (Lipitor) 40 mg DAILY 11/10/19 09:00 11/13/19 09:10 40 MG Bupivacaine HCl (Sensorcaine Mpf 0.5%) 30 ml STK-MED ONCE 11/09/19 14:23 11/09/19 14:24 DC Cefazolin Sodium/ Dextrose (Ancef 2gm Premix) 2 gm STK-MED ONCE 11/09/19 15:00 11/10/19 13:31 DC Dextrose (Dextrose 50%-Water Syringe) 12.5 gm PRN Q15MIN PRN 11/09/19 10:15 Dextrose/Sodium Chloride 1,000 ml @ 75 mls/hr [id number] 11/08/19 21:00 11/10/19 17:43 DC 11/10/19 03:33 75 MLS/HR Docusate Sodium (Colace) 100 mg BID 11/12/19 21:00 11/13/19 09:10 100 MG Fish Oil (Fish Oil) 1,000 mg BID 11/10/19 09:00 11/13/19 09:10 1,000 MG Furosemide (Lasix) 40 mg 1X ONCE 11/12/19 09:45 11/12/19 09:46 DC 11/12/19 09:59 40 MG Gabapentin (Neurontin) 600 mg TID 11/10/19 09:00 11/12/19 12:44 DC 11/12/19 09:59 600 MG Insulin Human Lispro (HumaLOG) 3 units 1X ONCE 11/10/19 06:00 11/10/19 06:01 DC 11/10/19 06:46 3 UNITS Levothyroxine Sodium (Synthroid) 50 mcg DAILY06 11/10/19 09:00 11/13/19 06:29 50 MCG Lidocaine HCl (Lidocaine 1% 20ml Vial) 20 ml STK-MED ONCE 11/09/19 14:23 11/09/19 14:24 DC Lidocaine HCl (Lidocaine Pf 2% Vial) 5 ml STK-MED ONCE 11/09/19 14:44 11/09/19 14:44 DC Linezolid/Dextrose 300 ml @ 300 mls/hr Q12HR 11/09/19 11:00 11/10/19 10:42 DC 11/10/19 10:02 300 MLS/HR Mexiletine HCl (Mexitil) 150 mg BID 11/09/19 21:00 11/10/19 11:21 DC Morphine Sulfate (Morphine Sulfate) 4 mg PRN Q4HRS PRN 11/08/19 21:30 11/11/19 03:41 4 MG Morphine Sulfate 5 mg/Ketorolac Tromethamine 30 mg/Ropivacaine 60 ml/Epinephrine HCl 0.5 mg/Sodium Chloride 100 ml @ 100 mls/hr 1X ONCE 11/09/19 15:00 11/09/19 15:59 DC 11/09/19 15:16 Multivitamins (Thera M Plus) 1 tab DAILY 11/10/19 09:00 11/13/19 09:10 1 TAB Non-Formulary Medication 1 ea BID 11/10/19 11:30 11/12/19 10:29 DC 11/10/19 20:26 1 EA Non-Formulary Medication (Cinnamon Bark (Cinnamon)) 1,000 mg DAILY 11/10/19 09:00 UNV Non-Formulary Medication (Mexiletine Hcl ) 150 mg BID 11/10/19 09:00 UNV Ondansetron HCl (Zofran) 4 mg PRN Q4HRS PRN 11/09/19 18:15 11/12/19 12:32 4 MG Oxycodone HCl (Roxicodone) 5 mg PRN Q4HRS PRN 11/11/19 11:30 11/12/19 05:24 5 MG Phenylephrine HCl (Khang-Synephrine Inj) 10 mg STK-MED ONCE 11/09/19 15:35 11/09/19 15:36 DC Phenylephrine HCl (PHENYLEPHRINE in 0.9% NACL PF) 1 mg STK-MED ONCE 11/09/19 14:45 11/09/19 14:45 DC Piperacillin Sod/ Tazobactam Sod 2.25 gm/Sodium Chloride 50 ml @ 100 mls/hr Q8HRS 11/09/19 10:00 11/10/19 10:42 DC 11/10/19 06:41 100 MLS/HR Prochlorperazine Edisylate (Compazine) 5 mg PACU PRN PRN 11/09/19 14:15 11/09/19 20:00 DC Propofol (Diprivan) 200 mg STK-MED ONCE 11/09/19 14:44 11/09/19 14:44 DC Ringer's Solution 1,000 ml @ 30 mls/hr Q24H 11/09/19 14:08 11/10/19 02:07 DC Sevoflurane (Ultane) 60 ml STK-MED ONCE 11/09/19 14:45 11/09/19 14:45 DC Sodium Chloride 500 ml @ 500 mls/hr 1X ONCE 11/10/19 12:00 11/10/19 12:59 DC 11/10/19 11:30 500 MLS/HR Lab Laboratory Tests Test 11/12/19 12:12 11/12/19 16:00 11/12/19 16:35 11/12/19 17:20 Glucose (Fingerstick) 128 mg/dL (70-99) 153 mg/dL (70-99) O2 Saturation 93 % (92-99) Arterial Blood pH 7.41 (7.35-7.45) Arterial Blood pCO2 at Patient Temp 31 mmHg (35-46) Arterial Blood pO2 at Patient Temp 70 mmHg (65-108) Arterial Blood HCO3 19 mmol/L (21-28) Arterial Blood Base Excess -5 mmol/L (-3-3) FiO2 28 Hemoglobin 9.1 g/dL (13.0-17.5) Hematocrit 25.7 % (39.0-53.0) Test 11/12/19 20:56 11/13/19 03:20 11/13/19 07:11 Glucose (Fingerstick) 198 mg/dL (70-99) 128 mg/dL (70-99) White Blood Count 8.1 x10^3/uL (4.0-11.0) Red Blood Count 2.44 x10^6/uL (4.30-5.70) Hemoglobin 7.8 g/dL (13.0-17.5) Hematocrit 22.6 % (39.0-53.0) Mean Corpuscular Volume 92 fL (79-100) Mean Corpuscular Hemoglobin 32 pg (25-35) Mean Corpuscular Hemoglobin Concent 34 g/dL (31-37) Red Cell Distribution Width 15.1 % (11.5-14.5) Platelet Count 139 x10^3/uL (140-400) Sodium Level 139 mmol/L (136-145) Potassium Level 4.1 mmol/L (3.5-5.1) Chloride Level 108 mmol/L (98-107) Carbon Dioxide Level 19 mmol/L (21-32) Anion Gap 12 (6-14) Blood Urea Nitrogen 51 mg/dL (8-26) Creatinine 1.8 mg/dL (0.7-1.3) Estimated GFR (Cockcroft-Gault) 36.9 BUN/Creatinine Ratio 28 (6-20) Glucose Level 149 mg/dL (70-99) Calcium Level 7.5 mg/dL (8.5-10.1) Total Bilirubin 0.4 mg/dL (0.2-1.0) Aspartate Amino Transf (AST/SGOT) 134 U/L (15-37) Alanine Aminotransferase (ALT/SGPT) 18 U/L (16-63) Alkaline Phosphatase 59 U/L (46-116) Creatine Kinase 1154 U/L (39-308) Total Protein 5.4 g/dL (6.4-8.2) Albumin 2.1 g/dL (3.4-5.0) Albumin/Globulin Ratio 0.6 (1.0-1.7) Results All relevant outside records, renal labs, imaging studies, telemetry/EKG's were reviewed. Justicifation of Admission Dx: Justifications for Admission: Justification of Admission Dx: Yes CHF: Cardiac Arrhythmias WILLIAM TUCKER MD Nov 13, 2019 11:00
[2019-11-13 11:09] VITALS: BP 123/63
--- NOTE | 2019-11-13 11:22 | NUR ---
SS following up with discharge planning. SS reviewed pt chart and discussed with pt RN. Pt is currently on room air. PT/OT ordered. SS currently awaiting PT/OT evaluations. SS will continue to follow for discharge planning.
--- NOTE | 2019-11-13 13:20 | NUR ---
Per Dr. Suarez, Franks catheter to stay in place to record accurate I/O since kidney labs are elevated. Pt also relayed to this RN that he thought he was having urinary retention when Franks was placed. Will maintain Franks and monitor output.
[2019-11-13] MEDS ORDERED: PIPERACILLIN/TAZOBACTAM 2.25 GM in IV NORMAL SALINE 50ML 50 ML IV SCH (13:30)
--- NOTE | 2019-11-13 13:46 | NUR ---
Pt's FSBS 155 at lunch time. Pt administered correction dose of 0.5 units per insulin pump, however, he did not consume his lunch. No bolus dose administered. Glucergracia granado ordered for pt.
--- NOTE | 2019-11-13 14:04 | PN ---
DATE: SUBJECTIVE: The patient is resting, slightly propped up in bed, in no apparent distress. He is definitely more awake, alert, responding appropriately. The nursing staff stated that he has managed to sit on the edge of the bed, although he did not last long, but there is no evidence of syncope or loss of consciousness. He ate his breakfast, but according to his , he has difficulty swallowing this afternoon. We did extensive investigation yesterday including CT scan of the head, which was unremarkable. Bilateral lower extremity venous Doppler ultrasound that were also negative. CT scan of the chest, abdomen and pelvis also was unremarkable except for bilateral pleural effusion with an adjacent bibasilar lower lobe atelectasis and there is also possible atelectasis or consolidation posterior to the right hilum and patchy nodular infiltrate involving the right upper lobe. He has also extensive coronary artery calcification present. There was definitely no retroperitoneal hemorrhage identified. No ascites. PHYSICAL EXAMINATION: GENERAL: When I examined him this morning, he looked pale, no jaundice, cyanosis or thyromegaly. No jugular venous distention, but mild generalized anasarca. VITAL SIGNS: His heart rate was 94, blood pressure was 123/63, temperature 97.6, respiratory rate was 18 and oxygen saturation was 94% on room air. HEAD, EYES, EARS, NOSE AND THROAT: Normocephalic, atraumatic. NECK: Supple. CARDIAC: Normal first and second heart sounds. No gallop or murmur. CHEST: Clear to auscultation. No crepitation or rhonchi. ABDOMEN: Distended, soft, nontender. NEUROLOGIC: He was awake, alert, responding appropriately. All his cranial nerves are intact. He has right below-knee amputation and status post open reduction internal fixation of distal right femoral fracture. His intake was 2960, output was 1700. LABORATORY DATA: His lab work this morning showed a white cell count of 8100, hemoglobin 7.8, hematocrit 22.6, MCV 92, and platelet count of 139,000. Serum sodium was 139, potassium 4.1, chloride 108, bicarbonate 19, anion gap of 12, BUN 51, creatinine 1.8, estimated GFR was 56 mL per minute. His glucose 149, calcium was 7.5. Total bilirubin, ALT, alkaline phosphatase normal. AST slightly elevated. Total protein was 5.4, albumin was 2.1. ASSESSMENT: 1. Fall, sustaining right closed intra-articular distal femur fracture, status post open reduction internal fixation using Garcia and Nephew lateral and distal femoral locking plate. 2. Acute kidney injury with creatinine that has risen up to 3.7 that is improving. His serum creatinine today is down to 1.8 mg/dL. 3. Acute blood loss anemia with hemoglobin and hematocrit that dropped down to 6.5 and 19.4. He received a total of 2 units of packed RBCs. 4. Other medical problems include: A. 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 B. Coronary artery disease, status post percutaneous coronary intervention with stent deployment. C. Peripheral arterial disease. D. Chronic kidney disease. E. Hypertension. F. History of atrial fibrillation, paroxysmal, for which he is on apixaban. G. Transient ischemic attack. 5. The patient has bilateral pleural effusion and possible pneumonia involving the right lower lobe, for which I did start him on Zosyn and Zyvox with a plan to continue with pain management. Continue with levothyroxine, atorvastatin and I did consult the speech therapist and we will repeat his lab work tomorrow. I did consult the accounting professional and was seen by Dr. Bowers. I have discussed the finding on his CT scan of the chest and decide to start him on antibiotics. NIKKO BEASLEY MD DR: PETER/rossi JOB#: [id number] / [id number]
--- NOTE | 2019-11-13 14:12 | NUR ---
Pt's right thigh hemovac drain removed and surgical dressing/abd pad applied. Pt tolerated procedure well.
[2019-11-13] MEDS: LINEZOLID 600 MG TABLET PO SCH ×2 (14:31→21:13)
[2019-11-13 14:59] VITALS: BP 123/63
--- NOTE | 2019-11-13 15:48 | PDOC ---
DEBBY TILLMAN COMPUTER SYSTEMS INFORMATION DIRECTOR 11/13/19 1548: CARDIO Progress Notes Date and Time Date of Service 11/13/19 Time of Evaluation 1110 Subjective Subjective: No Chest Pain, No shortness of breath, No Palpitations Vitals Vitals Vital Signs Date Time Temp Pulse Resp B/P (MAP) Pulse Ox O2 Delivery O2 Flow Rate FiO2 11/13/19 14:59 97.6 94 18 123/63 (83) 94 Room Air 97.6 11/13/19 07:30 1.0 Weight Weight [ ] Input and Output Intake and Output Intake and Output 11/13/19 07:00 Intake Total 720 ml Output Total 1870 ml Balance -1150 ml Intake Oral 120 ml IV Total 600 ml Output Urine Total 1750 ml Drainage Total 120 ml Laboratory Labs Laboratory Tests Test 11/12/19 16:00 11/12/19 16:35 11/12/19 17:20 11/12/19 20:56 O2 Saturation 93 % (92-99) Arterial Blood pH 7.41 (7.35-7.45) Arterial Blood pCO2 at Patient Temp 31 mmHg (35-46) Arterial Blood pO2 at Patient Temp 70 mmHg (65-108) Arterial Blood HCO3 19 mmol/L (21-28) Arterial Blood Base Excess -5 mmol/L (-3-3) FiO2 28 Glucose (Fingerstick) 153 mg/dL (70-99) 198 mg/dL (70-99) Hemoglobin 9.1 g/dL (13.0-17.5) Hematocrit 25.7 % (39.0-53.0) Test 11/13/19 03:20 11/13/19 07:11 11/13/19 11:23 White Blood Count 8.1 x10^3/uL (4.0-11.0) Red Blood Count 2.44 x10^6/uL (4.30-5.70) Hemoglobin 7.8 g/dL (13.0-17.5) Hematocrit 22.6 % (39.0-53.0) Mean Corpuscular Volume 92 fL (79-100) Mean Corpuscular Hemoglobin 32 pg (25-35) Mean Corpuscular Hemoglobin Concent 34 g/dL (31-37) Red Cell Distribution Width 15.1 % (11.5-14.5) Platelet Count 139 x10^3/uL (140-400) Sodium Level 139 mmol/L (136-145) Potassium Level 4.1 mmol/L (3.5-5.1) Chloride Level 108 mmol/L (98-107) Carbon Dioxide Level 19 mmol/L (21-32) Anion Gap 12 (6-14) Blood Urea Nitrogen 51 mg/dL (8-26) Creatinine 1.8 mg/dL (0.7-1.3) Estimated GFR (Cockcroft-Gault) 36.9 BUN/Creatinine Ratio 28 (6-20) Glucose Level 149 mg/dL (70-99) Calcium Level 7.5 mg/dL (8.5-10.1) Total Bilirubin 0.4 mg/dL (0.2-1.0) Aspartate Amino Transf (AST/SGOT) 134 U/L (15-37) Alanine Aminotransferase (ALT/SGPT) 18 U/L (16-63) Alkaline Phosphatase 59 U/L (46-116) Creatine Kinase 1154 U/L (39-308) Total Protein 5.4 g/dL (6.4-8.2) Albumin 2.1 g/dL (3.4-5.0) Albumin/Globulin Ratio 0.6 (1.0-1.7) Glucose (Fingerstick) 128 mg/dL (70-99) 155 mg/dL (70-99) Physical Exam HEENT: Neck Supple W Full Motion Chest: Symmetric LUNGS: Other (diminished bases) Heart: S1S2, RRR (V-paced with underlying SR) Abdomen: Soft N/T Extremities: No Edema, Other (right BKA ) Neurology: alert, oriented, follow commands Assessment Assessment 1. Near syncope; in setting of hypotension, hypovolemia 2. Hypertension; blood pressure remains low end. 3. Anemia; s/p PRBC's x2. Hgb stable 4. Hyperlipidemia; statin 5. 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 Device check with normal function, no significant arrhythmias. Recent echo with LV EF recovery 6. Acute on chronic systolic CHF; better compensated follow IV Lasix 7. CAD; s/p previous PCI/stent placement. 8. PAFIB; v-pace with underlying SR 9. DELVIS; improved 10. Right distal femur fracture; s/p ORIF 11. PAD; s/p right BKA 12. H/o high PVC burden Recommendations Orthostatic VS If orthostatic, consider Midodrine Lasix PRN Supportive care Justicifation of Admission Dx: Justifications for Admission: Justification of Admission Dx: Yes CHF: Cardiac Arrhythmias SUNDAR BOYER MD 11/13/192056: CARDIO Progress Notes Plan Plan The patient was seen and interviewed as well as examined at the bedside. The chart was reviewed. The case was discussed. Agree with the plan of care. DEBBY TILLMAN APRN Nov 13, 2019 15:48 SUNDAR BOYER MD Nov 13, 2019 20:57
[2019-11-13] MEDS: ASCORBIC ACID 500 MG TABLET PO SCH (16:10)
--- NOTE | 2019-11-13 16:16 | NUR ---
SS following up with discharge planning. PT/OT recommended acute rehabilitation. SS met with pt and pt's spouse in room to discuss discharge planning and acute rehabilitation. Pt COVID19 negative on 11/08/2019 at [facility]. Pt and pt's spouse reported that they are from [place] and would like a referral phoned and faxed to referral to [facility], ; fax [phone], due to previous experience. Pt and pt's spouse declined [facility] and acute rehabilitations. SS phoned and faxed referral to [facility]. SS will await acceptance decision and will proceed accordingly.
--- NOTE | 2019-11-13 17:51 | PDOC ---
PULMONARY PROGRESS NOTES Vitals Vital Signs Date Time Temp Pulse Resp B/P (MAP) Pulse Ox O2 Delivery O2 Flow Rate FiO2 11/13/19 14:59 97.6 94 18 123/63 (83) 94 Room Air 97.6 11/13/19 07:30 1.0 Labs Laboratory Tests Test 11/11/19 20:46 11/12/19 06:45 11/12/19 08:26 11/12/19 09:05 Glucose (Fingerstick) 223 mg/dL (70-99) 156 mg/dL (70-99) 148 mg/dL (70-99) White Blood Count 8.3 x10^3/uL (4.0-11.0) Red Blood Count 2.47 x10^6/uL (4.30-5.70) Hemoglobin 7.8 g/dL (13.0-17.5) Hematocrit 22.9 % (39.0-53.0) Mean Corpuscular Volume 93 fL (79-100) Mean Corpuscular Hemoglobin 31 pg (25-35) Mean Corpuscular Hemoglobin Concent 34 g/dL (31-37) Red Cell Distribution Width 15.1 % (11.5-14.5) Platelet Count 137 x10^3/uL (140-400) Sodium Level 141 mmol/L (136-145) Potassium Level 4.1 mmol/L (3.5-5.1) Chloride Level 110 mmol/L (98-107) Carbon Dioxide Level 18 mmol/L (21-32) Anion Gap 13 (6-14) Blood Urea Nitrogen 55 mg/dL (8-26) Creatinine 2.2 mg/dL (0.7-1.3) Estimated GFR (Cockcroft-Gault) 29.2 Glucose Level 161 mg/dL (70-99) Calcium Level 6.8 mg/dL (8.5-10.1) Creatine Kinase 1465 U/L (39-308) Test 11/12/19 12:12 11/12/19 16:00 11/12/19 16:35 11/12/19 17:20 Glucose (Fingerstick) 128 mg/dL (70-99) 153 mg/dL (70-99) O2 Saturation 93 % (92-99) Arterial Blood pH 7.41 (7.35-7.45) Arterial Blood pCO2 at Patient Temp 31 mmHg (35-46) Arterial Blood pO2 at Patient Temp 70 mmHg (65-108) Arterial Blood HCO3 19 mmol/L (21-28) Arterial Blood Base Excess -5 mmol/L (-3-3) FiO2 28 Hemoglobin 9.1 g/dL (13.0-17.5) Hematocrit 25.7 % (39.0-53.0) Test 11/12/19 20:56 11/13/19 03:20 11/13/19 07:11 11/13/19 11:23 Glucose (Fingerstick) 198 mg/dL (70-99) 128 mg/dL (70-99) 155 mg/dL (70-99) White Blood Count 8.1 x10^3/uL (4.0-11.0) Red Blood Count 2.44 x10^6/uL (4.30-5.70) Hemoglobin 7.8 g/dL (13.0-17.5) Hematocrit 22.6 % (39.0-53.0) Mean Corpuscular Volume 92 fL (79-100) Mean Corpuscular Hemoglobin 32 pg (25-35) Mean Corpuscular Hemoglobin Concent 34 g/dL (31-37) Red Cell Distribution Width 15.1 % (11.5-14.5) Platelet Count 139 x10^3/uL (140-400) Sodium Level 139 mmol/L (136-145) Potassium Level 4.1 mmol/L (3.5-5.1) Chloride Level 108 mmol/L (98-107) Carbon Dioxide Level 19 mmol/L (21-32) Anion Gap 12 (6-14) Blood Urea Nitrogen 51 mg/dL (8-26) Creatinine 1.8 mg/dL (0.7-1.3) Estimated GFR (Cockcroft-Gault) 36.9 BUN/Creatinine Ratio 28 (6-20) Glucose Level 149 mg/dL (70-99) Calcium Level 7.5 mg/dL (8.5-10.1) Total Bilirubin 0.4 mg/dL (0.2-1.0) Aspartate Amino Transf (AST/SGOT) 134 U/L (15-37) Alanine Aminotransferase (ALT/SGPT) 18 U/L (16-63) Alkaline Phosphatase 59 U/L (46-116) Creatine Kinase 1154 U/L (39-308) Total Protein 5.4 g/dL (6.4-8.2) Albumin 2.1 g/dL (3.4-5.0) Albumin/Globulin Ratio 0.6 (1.0-1.7) Test 11/13/19 16:34 Glucose (Fingerstick) 170 mg/dL (70-99) Laboratory Tests Test 11/12/19 20:56 11/13/19 03:20 11/13/19 07:11 11/13/19 11:23 Glucose (Fingerstick) 198 mg/dL (70-99) 128 mg/dL (70-99) 155 mg/dL (70-99) White Blood Count 8.1 x10^3/uL (4.0-11.0) Red Blood Count 2.44 x10^6/uL (4.30-5.70) Hemoglobin 7.8 g/dL (13.0-17.5) Hematocrit 22.6 % (39.0-53.0) Mean Corpuscular Volume 92 fL (79-100) Mean Corpuscular Hemoglobin 32 pg (25-35) Mean Corpuscular Hemoglobin Concent 34 g/dL (31-37) Red Cell Distribution Width 15.1 % (11.5-14.5) Platelet Count 139 x10^3/uL (140-400) Sodium Level 139 mmol/L (136-145) Potassium Level 4.1 mmol/L (3.5-5.1) Chloride Level 108 mmol/L (98-107) Carbon Dioxide Level 19 mmol/L (21-32) Anion Gap 12 (6-14) Blood Urea Nitrogen 51 mg/dL (8-26) Creatinine 1.8 mg/dL (0.7-1.3) Estimated GFR (Cockcroft-Gault) 36.9 BUN/Creatinine Ratio 28 (6-20) Glucose Level 149 mg/dL (70-99) Calcium Level 7.5 mg/dL (8.5-10.1) Total Bilirubin 0.4 mg/dL (0.2-1.0) Aspartate Amino Transf (AST/SGOT) 134 U/L (15-37) Alanine Aminotransferase (ALT/SGPT) 18 U/L (16-63) Alkaline Phosphatase 59 U/L (46-116) Creatine Kinase 1154 U/L (39-308) Total Protein 5.4 g/dL (6.4-8.2) Albumin 2.1 g/dL (3.4-5.0) Albumin/Globulin Ratio 0.6 (1.0-1.7) Test 11/13/19 16:34 Glucose (Fingerstick) 170 mg/dL (70-99) Medications Active Scripts Medications Dose Route/Sig Max Daily Dose Days Date Category Carvedilol 25 Mg Tablet 25 Mg PO BIDWMEALS 11/08/19 Reported Cinnamon (Cinnamon Bark) 500 Mg Capsule 1,000 Mg PO DAILY 11/08/19 Reported Once Daily (Multivitamin) 1 Each Tablet 1 Tab PO DAILY 30 11/08/19 Reported Fish Oil 1,000 Mg Capsule ([place]-3 Fatty Acids/Fish Oil) 1 Each Capsule 2 Each PO BID 11/08/19 Reported Synthroid (Levothyroxine Sodium) 50 Mcg Tablet 1 Tab PO DAILY 11/08/19 Reported Atorvastatin Calcium 40 Mg Tablet 1 Tab PO DAILY 11/08/19 Reported Lisinopril 20 Mg Tablet 1 Tab PO DAILY 11/08/19 Reported Mexiletine Hcl 150 Mg Capsule 150 Mg PO BID 11/08/19 Reported Eliquis (Apixaban) 5 Mg Tablet 5 Mg PO BID 11/08/19 Reported Impression . Full note dictated, discussed with Dr. Murray We will treat for pneumonia rule out aspiration Recommend repeating CT chest in [address] CHEST Impression: No retroperitoneal hemorrhage identified. No ascites. Bilateral pleural effusions with adjacent atelectasis. Right posterior hilar consolidation or atelectasis. Patchy infiltrates along the right upper lung field. Interval follow-up to assess resolution recommended. Mild anasarca. CECELIA RINCON MD Nov 13, 2019 17:51
[2019-11-13] MEDS ORDERED: PIPERACILLIN/TAZOBACTAM 3.375 GM in IV NORMAL SALINE 50ML 50 ML IV SCH (18:00)
--- NOTE | 2019-11-13 18:02 | NUR ---
Pt's FSBS 170 at dinner. Pt reported correction dose and bolus dose totalled 3.8 units.
[2019-11-13 18:55] VITALS: BP 129/63
[2019-11-13] MEDS: AMOXICILLIN/K CLAV 875/125MG TABLET. PO SCH (21:13)
--- NOTE | 2019-11-13 21:46 | CONS ---
DATE OF CONSULTATION: 11/13/2019 ATTENDING PHYSICIAN: Dr. Suarez. REASON FOR CONSULTATION: The patient seen in pulmonary consultation at the request of Dr. Suarez for abnormal chest x-ray. Subsequent CT chest was obtained. HISTORY OF PRESENT ILLNESS: The patient is a 74-year-old gentleman that has multiple medical problems including hypertension, hyperlipidemia, coronary artery disease, had a right distal fracture, renal insufficiency, diabetes and coronary artery disease, presented with the above. He underwent an open reduction and internal fixation of right intra-articular distal femoral fracture. Part of his workup included chest x-ray, the chest x-ray revealed abnormality within the right infrahilar region. Subsequently, a CT of the chest was obtained. I reviewed the CT, which reveals several findings. There is hilar consolidation with air bronchograms on the right side. There are also some small bilateral effusions. I was asked to see the patient in consultation for further evaluation and management. The patient currently denies fever, chills or night sweats. He has not recently been treated for pneumonia. He has never smoked. Denies any hemoptysis. PAST MEDICAL HISTORY: Hypertension, hyperlipidemia, coronary artery disease, sick sinus syndrome status post AICD placement, peripheral neuropathy, gastroesophageal reflux, renal insufficiency, he has had previous thyroidectomy, and previous C5 and C6-7 spinal surgery. PAST SURGICAL HISTORY: As above. ALLERGIES: CARBAMAZEPINE AND OXAPROZIN. CURRENT MEDICATIONS: List was reviewed. FAMILY HISTORY: Father with asthma. SOCIAL HISTORY: Never smoked, was exposed to secondhand smoke. REVIEW OF SYSTEMS: CONSTITUTIONAL: No fever or chills. EYES: No change in visual acuity. HENT: No nasal congestion or sore throat. PULMONARY: As indicated above. CARDIOVASCULAR: No chest pain or pressure. GASTROINTESTINAL: No nausea, vomiting or diarrhea. GENITOURINARY: No dysuria or frequency. MUSCULOSKELETAL: No localized muscle aches or joint pains. SKIN: No new skin rashes. NEUROLOGIC: No headaches, diplopia or blurred vision. PHYSICAL EXAMINATION: Extremities: He has had a right-sided BKA. DIAGNOSTIC STUDIES: Venous Doppler of the lower extremities were negative. CT chest as indicated above. White count was normal. Hemoglobin and hematocrit chronically low. Arterial blood gas: pH of 7.41, PaCO2 of 31, and PaO2 of 70. IMPRESSION: 1. Abnormal CT chest revealing several findings including a right posterior hilar consolidation with some air bronchograms and bilateral pleural effusions. 2. Recent open reduction and internal fixation of the right intra-articular distal femoral fracture, date of 11/08. 3. Hypertension per Cardiology. 4. Chronic anemia. 5. Hyperlipidemia. 6. Combination of ischemic and nonischemic cardiomyopathy. 7. Acute on chronic systolic heart failure. 8. Coronary artery disease with previous PCI and stent placement. 9. Paroxysmal atrial fibrillation. 10. Acute kidney injury. 11. Peripheral arterial disease, status post right below-knee amputation. DISCUSSION: The patient presents with complex medical decision making. He has multiple comorbidities, who presents with a fractured hip, which he underwent repair. His x-ray was abnormal. CT revealed a consolidation in the right hilar area with some air bronchograms. Clinically, I do not think this is an infectious etiology, he has not smoked, the chances of malignancy less than someone who has smoked, with that being said malignancy could certainly not be ruled out. Chronic aspiration may should be considered in differential diagnosis, the patient does have some dysphagia. For now, I recommend speech evaluation, antibiotics with Augmentin, discharge home and complete 3 weeks course of Augmentin, and follow up in my office in 2 months with a repeat CT chest. I do appreciate the privilege in sharing in the patient's care. The above was discussed with his at the bedside. CECELIA RINCON MD DR: IRA/rossi JOB#: [id number] / [id number]
[2019-11-13 23:29] VITALS: BP 143/68
--- NOTE | 2019-11-13 23:37 | NUR ---
Patient c/o abdominal pain not decreased with ordered Lidoderm patch. Call to Dr. Buitrago regarding pain medication. Addendum: 11/14/19 at 0123 by HUDSON POWELL RN Error. Wrong Patient.
[2019-11-14 02:22] VITALS: BP 137/63
[2019-11-14 04:38] LABS: HEMATOCRIT 24.5 % (39.0-53.0); HEMOGLOBIN 8.5 g/dL (13.0-17.5); RED BLOOD COUNT 2.63 x10^6/uL (4.30-5.70); RED CELL DISTRIBUTION WIDTH 14.8 % (11.5-14.5); WHITE BLOOD COUNT 8.6 x10^3/uL (4.0-11.0)
[2019-11-14 05:02] LABS: CALCIUM 7.8 mg/dL (8.5-10.1); CREATININE 1.8 mg/dL (0.7-1.3); GFR 36.9; POTASSIUM 4.4 mmol/L (3.5-5.1)
[2019-11-14] MEDS: LEVOTHYROXINE 50 MCG TABLET PO SCH (06:07)
[2019-11-14 07:00] VITALS: BP 172/85
[2019-11-14] MEDS: DOCUSATE SODIUM 100 MG CAPSULE. PO SCH ×2 (09:00→21:00)
[2019-11-14 09:11] VITALS: BP 144/80
[2019-11-14] MEDS: ATORVASTATIN CALCIUM 40 MG TABLET. PO SCH (09:43)
[2019-11-14] MEDS: LINEZOLID 600 MG TABLET PO SCH ×2 (09:43→21:34)
[2019-11-14] MEDS: MULTIVITAMIN with MINERAL TABLET. PO SCH (09:43)
[2019-11-14] MEDS: AMOXICILLIN/K CLAV 875/125MG TABLET. PO SCH ×2 (09:43→21:33)
[2019-11-14] MEDS: OMEGA-3 FATTY ACIDS/FISH OIL 1,000 MG CAPSULE. PO SCH ×2 (09:43→21:33)
[2019-11-14] MEDS: ASCORBIC ACID 500 MG TABLET PO SCH (09:43)
--- NOTE | 2019-11-14 09:44 | NUR ---
FBSB 186 this am. Pt administered correction dose of 2.5 units per insulin pump. Pt refuses to eat his breakfast, states he will try to drink his ensure. States he doesn't have an appetite.
[2019-11-14] MEDS: ONDANSETRON PF 4 MG/2 ML VIAL. IVP PRN (10:38)
--- NOTE | 2019-11-14 11:04 | NUR ---
This RN verified with Dr. Suarez by telephone that pt is to be telemetry monitored.
--- NOTE | 2019-11-14 11:17 | PDOC ---
SUBJECTIVE ROS Didnt feel good earlier today, now feeling somewhat better C/O Diarrhea (Per RN mima , BM as he is getting Colace for Constipation) OBJECTIVE Vital Signs Vital Signs Date Time Temp Pulse Resp B/P (MAP) Pulse Ox O2 Delivery O2 Flow Rate FiO2 11/14/19 09:11 89 144/80 (101) 11/14/19 07:47 Nasal Cannula 2.0 11/14/19 07:00 97.7 20 96 97.7 I & 0 Intake and Output 11/14/19 07:00 Intake Total 840 ml Output Total 2155 ml Balance -1315 ml Intake Oral 790 ml IV Total 50 ml Output Urine Total 2125 ml Drainage Total 30 ml # Bowel Movements 1 PHYSICAL EXAM Physical Exam GEN: NAD HEEN: OM moist, on RA NECK: supple CVS: S1S2, RESP: , mildly labored GI: BS + ve, NO Bruit, Non Tender, Non Distended : No CVA tenderness, No Suprapubic Tenderness, Franks + NEURO- Grossly Normal EXT- Rt BKA, No LE edema Lt SKIN: post-surgical dressing on the distal femur DIAGNOSIS/ASSESSMENT Assessment & Plan DELVIS on CKD- at presentation to [facility] Cr 2.0-Increased to 3.2 Suspect ATN sec to Hypotension, mild Rhabdo , Renal function close to baseline Supportive care, UA ordered on 11/09- Not done , Avoid Nephrotoxins Mild Rhabdo- CK improving CKD stage 3- under Dr. Carrion's care, Baseline Cr per Pt 1.6-1.7 Near syncope; episode x2 in setting of hypotension COMMENT/RELEVANT DATA Meds Current Medications Medications (Trade) Dose Ordered Sig/Nona Start Time Stop Time Status Last Admin Dose Admin Albuterol/ Ipratropium (Duoneb) 3 ml PRN QID PRN 11/12/19 09:45 11/12/19 09:48 3 ML Amoxicillin/ Clavulanate Potassium (Augmentin 875/ 125mg) 1 tab BID 11/13/19 21:00 11/14/19 09:43 1 TAB Ascorbic Acid (Vitamin C) 500 mg DAILY 11/13/19 16:00 11/14/19 09:43 500 MG Atorvastatin Calcium (Lipitor) 40 mg DAILY 11/10/19 09:00 11/14/19 09:43 40 MG Bupivacaine HCl (Sensorcaine Mpf 0.5%) 30 ml STK-MED ONCE 11/09/19 14:23 11/09/19 14:24 DC Cefazolin Sodium/ Dextrose (Ancef 2gm Premix) 2 gm STK-MED ONCE 11/09/19 15:00 11/10/19 13:31 DC Dextrose (Dextrose 50%-Water Syringe) 12.5 gm PRN Q15MIN PRN 11/09/19 10:15 Dextrose/Sodium Chloride 1,000 ml @ 75 mls/hr [id number] 11/08/19 21:00 11/10/19 17:43 DC 11/10/19 03:33 75 MLS/HR Docusate Sodium (Colace) 100 mg BID 11/12/19 21:00 11/13/19 09:10 100 MG Fish Oil (Fish Oil) 1,000 mg BID 11/10/19 09:00 11/14/19 09:43 1,000 MG Furosemide (Lasix) 40 mg 1X ONCE 11/12/19 09:45 11/12/19 09:46 DC 11/12/19 09:59 40 MG Gabapentin (Neurontin) 600 mg TID 11/10/19 09:00 11/12/19 12:44 DC 11/12/19 09:59 600 MG Insulin Human Lispro (HumaLOG) 3 units 1X ONCE 11/10/19 06:00 11/10/19 06:01 DC 11/10/19 06:46 3 UNITS Levothyroxine Sodium (Synthroid) 50 mcg DAILY06 11/10/19 09:00 11/14/19 06:07 50 MCG Lidocaine HCl (Lidocaine 1% 20ml Vial) 20 ml STK-MED ONCE 11/09/19 14:23 11/09/19 14:24 DC Lidocaine HCl (Lidocaine Pf 2% Vial) 5 ml STK-MED ONCE 11/09/19 14:44 11/09/19 14:44 DC Linezolid (Zyvox) 600 mg BID 11/13/19 13:30 11/14/19 09:43 600 MG Linezolid/Dextrose 300 ml @ 300 mls/hr Q12HR 11/09/19 11:00 11/10/19 10:42 DC 11/10/19 10:02 300 MLS/HR Mexiletine HCl (Mexitil) 150 mg BID 11/09/19 21:00 11/10/19 11:21 DC Morphine Sulfate (Morphine Sulfate) 4 mg PRN Q4HRS PRN 11/08/19 21:30 11/11/19 03:41 4 MG Morphine Sulfate 5 mg/Ketorolac Tromethamine 30 mg/Ropivacaine 60 ml/Epinephrine HCl 0.5 mg/Sodium Chloride 100 ml @ 100 mls/hr 1X ONCE 11/09/19 15:00 11/09/19 15:59 DC 11/09/19 15:16 Multivitamins (Thera M Plus) 1 tab DAILY 11/10/19 09:00 11/14/19 09:43 1 TAB Non-Formulary Medication 1 ea BID 11/10/19 11:30 11/12/19 10:29 DC 11/10/19 20:26 1 EA Non-Formulary Medication (Cinnamon Bark (Cinnamon)) 1,000 mg DAILY 11/10/19 09:00 UNV Non-Formulary Medication (Mexiletine Hcl ) 150 mg BID 11/10/19 09:00 UNV Ondansetron HCl (Zofran) 4 mg PRN Q4HRS PRN 11/09/19 18:15 11/14/19 10:38 4 MG Oxycodone HCl (Roxicodone) 5 mg PRN Q4HRS PRN 11/11/19 11:30 11/12/19 05:24 5 MG Phenylephrine HCl (Khang-Synephrine Inj) 10 mg STK-MED ONCE 11/09/19 15:35 11/09/19 15:36 DC Phenylephrine HCl (PHENYLEPHRINE in 0.9% NACL PF) 1 mg STK-MED ONCE 11/09/19 14:45 11/09/19 14:45 DC Piperacillin Sod/ Tazobactam Sod 2.25 gm/Sodium Chloride 50 ml @ 100 mls/hr Q8H 11/13/19 13:30 UNV Piperacillin Sod/ Tazobactam Sod 3.375 gm/Sodium Chloride 50 ml @ 100 mls/hr Q6HRS 11/13/19 18:00 11/13/19 17:53 DC 11/13/19 17:47 100 MLS/HR Prochlorperazine Edisylate (Compazine) 5 mg PACU PRN PRN 11/09/19 14:15 11/09/19 20:00 DC Propofol (Diprivan) 200 mg STK-MED ONCE 11/09/19 14:44 11/09/19 14:44 DC Ringer's Solution 1,000 ml @ 30 mls/hr Q24H 11/09/19 14:08 11/10/19 02:07 DC Sevoflurane (Ultane) 60 ml STK-MED ONCE 11/09/19 14:45 11/09/19 14:45 DC Sodium Chloride 500 ml @ 500 mls/hr 1X ONCE 11/10/19 12:00 11/10/19 12:59 DC 11/10/19 11:30 500 MLS/HR Lab Laboratory Tests Test 11/13/19 11:23 11/13/19 16:34 11/14/19 04:00 11/14/19 07:54 Glucose (Fingerstick) 155 mg/dL (70-99) 170 mg/dL (70-99) 186 mg/dL (70-99) White Blood Count 8.6 x10^3/uL (4.0-11.0) Red Blood Count 2.63 x10^6/uL (4.30-5.70) Hemoglobin 8.5 g/dL (13.0-17.5) Hematocrit 24.5 % (39.0-53.0) Mean Corpuscular Volume 93 fL (79-100) Mean Corpuscular Hemoglobin 32 pg (25-35) Mean Corpuscular Hemoglobin Concent 35 g/dL (31-37) Red Cell Distribution Width 14.8 % (11.5-14.5) Platelet Count 152 x10^3/uL (140-400) Sodium Level 140 mmol/L (136-145) Potassium Level 4.4 mmol/L (3.5-5.1) Chloride Level 108 mmol/L (98-107) Carbon Dioxide Level 19 mmol/L (21-32) Anion Gap 13 (6-14) Blood Urea Nitrogen 48 mg/dL (8-26) Creatinine 1.8 mg/dL (0.7-1.3) Estimated GFR (Cockcroft-Gault) 36.9 Glucose Level 202 mg/dL (70-99) Calcium Level 7.8 mg/dL (8.5-10.1) Creatine Kinase 601 U/L (39-308) Test 11/14/19 10:45 Glucose (Fingerstick) 170 mg/dL (70-99) Results All relevant outside records, renal labs, imaging studies, telemetry/EKG's were reviewed. Justicifation of Admission Dx: Justifications for Admission: Justification of Admission Dx: Yes CHF: Cardiac Arrhythmias WILLIAM TUCKER MD Nov 14, 2019 11:17
[2019-11-14 11:34] VITALS: BP 152/82
--- NOTE | 2019-11-14 12:26 | NUR ---
SS following up with discharge planning. SS reviewed pt chart and discussed with pt RN. Pt is currently requiring oxygen. SS phoned and faxed referral to [facility], ; fax [phone], on 11/13/2019. SS currently awaiting acceptance decision from [facility]. SS met with pt and spouse in room and discussed other rehabilitation options. Pt and pt's spouse reported that they only wanted to go to [facility]. SS will continue to follow for discharge planning.
--- NOTE | 2019-11-14 12:30 | NUR ---
Pt FSBS 170 at lunch time. Pt refuses to eat lunch. Pt administered correction dose only at 1.6 units. Will monitor pt.
--- NOTE | 2019-11-14 13:17 | PN ---
DATE: 11/14/2019 SUBJECTIVE: The patient is resting flat in bed with multiple complaints including shortness of breath, difficulty swallowing, nausea and diarrhea. Nursing staff stated that he was able to swallow his tablets this morning, but he is refusing to eat or drink even his liquids. PHYSICAL EXAMINATION: GENERAL: When I examined him, he looked pale, no jaundice, cyanosis or thyromegaly. No jugular venous distention. No limb edema. VITAL SIGNS: His heart rate was 93, blood pressure was 152/82, temperature was 98.6, respiratory rate was 20, and oxygen saturation was 96% on 2 liters of oxygen. HEAD, EYES, EARS, NOSE AND THROAT: Showed normocephalic, atraumatic. NECK: Supple. HEART: Showed normal first and second heart sounds. No gallop, rub or murmur. CHEST: Clear to auscultation. No crepitation or rhonchi anteriorly. ABDOMEN: Distended, soft, nontender. NEUROLOGIC: He is awake, alert, responding appropriately. All his cranial nerves are intact. He moves his upper extremities without difficulty. Has right below knee amputation, status post open reduction and internal fixation of right distal femoral fracture. His intake over the last 24 hours was 720, output was 1870. LABORATORY DATA: As of this morning, his white cell count was 8600, hemoglobin 8.5, hematocrit 24.5, MCV 93, and platelet count of 152,000. Serum sodium was 140, potassium 4.4, chloride 108, bicarbonate 19, BUN of 48, creatinine 1.8, estimated GFR was 37 mL per minute. His glucose was 202, calcium was 7.8. CK was 601. ASSESSMENT: 1. Fall, sustaining right closed intra-articular distal femur fracture, status post open reduction and internal fixation using Garcia and Nephew lateral and distal femoral locking plate. 2. Acute kidney injury with creatinine that has been up to 3.7. Creatinine is now down to 1.8. 3. Acute blood loss anemia with hemoglobin and hematocrit dropped down to 6.5 and 19.4, for which he received 2 units of packed RBCs. His most recent hemoglobin is 8.5 and hematocrit was 23. 4. The patient has multiple other medical problems including: A. Combined ischemic and nonischemic cardiomyopathy. B. Coronary artery disease, status post percutaneous coronary intervention with stent deployment. C. Peripheral arterial disease. D. Chronic kidney disease. E. Hypertension. F. History of atrial fibrillation, paroxysmal, which he is on apixaban that has been on hold. G. Transient ischemic attack. 5. The patient has bilateral pleural effusion, possible pneumonia involving his right lower lobe, for which I did start him on Zosyn and Zyvox. PLAN: To continue with pain management. Continue with levothyroxine, atorvastatin. I did give him 40 mg of IV Lasix and start him also on Marinol as an appetite stimulant. He has had a video swallowing evaluation scheduled. NIKKO BEASLEY MD DR: PETER/rossi JOB#: [id number] / [id number]
[2019-11-14] MEDS ORDERED: PANTOPRAZOLE IV PUSH 40 MG VIAL. IVP ONE (13:30)
[2019-11-14] MEDS ORDERED: FUROSEMIDE 40 MG/4 ML VIAL. IVP ONE (13:30)
[2019-11-14] MEDS ORDERED: BARIUM SULFATE 340 GM SUSPENSION. PO ONE (14:30)
[2019-11-14] MEDS ORDERED: BARIUM SULFATE 60% 355 ML SUSP PO ONE (14:30)
[2019-11-14] MEDS ORDERED: BARIUM SULFATE 40% (APPLE) 148 GM PWD. PO ONE (14:45)
--- NOTE | 2019-11-14 15:17 | RAD ---
CLINICAL HISTORY: Reason: dysphagia, globus sensation COMPARISON: None available. TECHNIQUE:A single contrast esophagram study was performed. Thin barium was administered orally and fluoroscopic images were taken predominantly in the frontal projection. Of note given patient's lower extremity fracture/amputation and resultant limited mobility, this was a limited study. Fluoroscopy time was 0.3 minutes. FINDINGS: There is prompt opacification esophagus with normal primary and secondary peristaltic waves. However tertiary contractions were seen, possibly presbyesophagus. No obvious extrinsic or intrinsic filling defect was identified. No definite esophageal diverticulum was seen and these single projections. IMPRESSION: Limited evaluation of the esophagus without obvious intrinsic or extrinsic filling defect. Electronically signed by: Ishmael Bee MD (11/14/2019 3:14 PM) [id number]
--- NOTE | 2019-11-14 15:18 | PDOC2 ---
GI CONSULT Reason For Consult: esophageal dysphagia HPI: HPI: 74 y/o male admitted 11/08/19 w/ right femur fracture, now s/p ORIF. Jimena present, helps with history. GI-bass, long h/o GERD since the . Previously on ranitidine, then switched to famotidine Q a.m. ~5-6 months ago. Thinks it works "so-so." Additionally long history ("years") of dysphagia - solid foods (names meat and mashed potatoes) and "too much liquid" get stuck in the middle of his neck about 2-3 times weekly. Sometimes coughs back into mouth and swallows again. Has been more bothersome here. Has also not been getting an acid-field consultant. Coughed a lot earlier and spit up something orange. No abd pain. Typical bowel pattern is "gets the plug" for 4-5 days, then has 5-6 stools in one day (which has occurred today - not unusual for him he says). No hematochezia, melena, or hematemesis. No weight loss. No odynophagia. Had an EGD in the w/ a hiatal hernia. More than one colonoscopy - last >20 years ago, possible h/o polyps. No GB, liver, pancreas, or PUD history. On Eliquis. PMH: PMH: ICM, CAD, PAD, CKD, HTN, HLD, A Fib, TIA, hypothyroidism partial thyroidectomy, cervical surgery, pacemaker, skin graft, left foot surgery, right BKA FH: Family History: No pertinent hx Social History: Smoke: Quit ALCOHOL: none ROS: GEN: Denies fevers, chills, sweats HEENT: Denies blurred vision, sore throat CV: Denies chest pain RESP: Denies shortness of air, cough GI: Per HPI : Denies hematuria, dysuria ENDO: Denies weight changes NEURO: Denies confusion, dizziness MSK: Denies weakness, joint pain/swelling SKIN: Denies jaundice, pruritus Vitals: Vitals: Vital Signs Date Time Temp Pulse Resp B/P (MAP) Pulse Ox O2 Delivery O2 Flow Rate FiO2 11/14/19 11:34 98.6 93 152/82 (105) 98.6 11/14/19 07:47 Nasal Cannula 2.0 11/14/19 07:00 20 96 Labs: Labs: Laboratory Tests Test 11/13/19 16:34 11/14/19 04:00 11/14/19 07:54 11/14/19 10:45 Glucose (Fingerstick) 170 mg/dL (70-99) 186 mg/dL (70-99) 170 mg/dL (70-99) White Blood Count 8.6 x10^3/uL (4.0-11.0) Red Blood Count 2.63 x10^6/uL (4.30-5.70) Hemoglobin 8.5 g/dL (13.0-17.5) Hematocrit 24.5 % (39.0-53.0) Mean Corpuscular Volume 93 fL (79-100) Mean Corpuscular Hemoglobin 32 pg (25-35) Mean Corpuscular Hemoglobin Concent 35 g/dL (31-37) Red Cell Distribution Width 14.8 % (11.5-14.5) Platelet Count 152 x10^3/uL (140-400) Sodium Level 140 mmol/L (136-145) Potassium Level 4.4 mmol/L (3.5-5.1) Chloride Level 108 mmol/L (98-107) Carbon Dioxide Level 19 mmol/L (21-32) Anion Gap 13 (6-14) Blood Urea Nitrogen 48 mg/dL (8-26) Creatinine 1.8 mg/dL (0.7-1.3) Estimated GFR (Cockcroft-Gault) 36.9 Glucose Level 202 mg/dL (70-99) Calcium Level 7.8 mg/dL (8.5-10.1) Creatine Kinase 601 U/L (39-308) Allergies: Coded Allergies: carbamazepine (Verified Allergy, Intermediate, 11/10/19) oxaprozin (Verified Allergy, Intermediate, 11/10/19) Medications: Current Medications Medications (Trade) Dose Ordered Sig/Nona Route PRN Reason Start Time Stop Time Status Last Admin Dose Admin Piperacillin Sod/ Tazobactam Sod 3.375 gm/Sodium Chloride 50 ml @ 100 mls/hr Q6HRS IV 11/13/19 18:00 11/13/19 17:53 DC 11/13/19 17:47 Ascorbic Acid (Vitamin C) 500 mg DAILY PO 11/13/19 16:00 11/14/19 09:43 Amoxicillin/ Clavulanate Potassium (Augmentin 875/ 125mg) 1 tab BID PO 11/13/19 21:00 11/14/19 09:43 Furosemide (Lasix) 40 mg 1X ONCE IVP 11/14/19 13:30 11/14/19 13:31 DC 11/14/19 13:29 Pantoprazole Sodium (PROTONIX VIAL for IV PUSH) 40 mg 1X ONCE IVP 11/14/19 13:30 11/14/19 13:31 DC 11/14/19 13:29 Barium Sulfate (Varibar Thin Liquid Apple) 148 gm 1X ONCE PO 11/14/19 14:45 11/14/19 14:46 DC 11/14/19 15:00 Barium Sulfate (E-Z-Hd) 340 gm 1X ONCE PO 11/14/19 14:30 11/14/19 14:31 DC 11/14/19 14:30 Barium Sulfate (Liquid E-Z Paque) 355 ml 1X ONCE PO 11/14/19 14:30 11/14/19 14:31 DC 11/14/19 14:30 Imaging: Imaging: CXR IMPRESSION: 1. Right infrahilar opacity identified measuring 4 cm could be a mass or prominent appearing pulmonary vasculature. Small opacity identified in the right suprahilar region. Recommend CT chest for further evaluation. Head CT Impression: No suspicious intracranial process. BLE US Impression: 1. No thrombus is demonstrated of the lower extremity veins on either side. C/A/P CT Impression: No retroperitoneal hemorrhage identified. No ascites. Bilateral pleural effusions with adjacent atelectasis. Right posterior hilar consolidation or atelectasis. Patchy infiltrates along the right upper lung field. Interval follow-up to assess resolution recommended. Mild anasarca. CHIEF OPERATOR Bedside Swallow Eval Bedside swallow eval completed earlier this date. Pt c/o solid food dysphagia. IMPRESSIONS: Functional oropharyngeal swallow. Poss esophageal dysphagia based on pt report of difficulty w/swallowing solid foods, mainly meats. Pt and stated pt has GERD and takes OTC med which was not on hospital med list nor on pt's personal list maintained by he and his . to look into med tonight and let RN know. RECOMMENDATIONS: Con't current diet w/thin liquids. GERD precautions. F/u on OP basis w/GI doctor if con't issues. Pt and verbalized understanding. DW RN Selena. No additional CHIEF OPERATOR f/u indicated. Videoswallow Findings/ There was no laryngeal penetration or aspiration of the thin, solid, mixed consistency barium observed. Soft tissue thickening within the proximal esophagus is not well delineated, possibly a cricopharyngeal bar. Initial Videoswallow Study Full rpt to follow. Essentially normal oropharyngeal swallow. Incomplete mastication appears to contribute to moderate vallecular residue. No penetration nor aspiration noted throughout study over multiple trials including thin via cup and straw. IMPRESSIONS: WFLs oropharyngeal swallow. RECOMMENDATIONS: Con't regular diet w/thin liquids. No additional CHIEF OPERATOR f/u indicated. Esophagram IMPRESSION: Limited evaluation of the esophagus without obvious intrinsic or extrinsic filling defect. 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 Consider ENT eval. Okay to eat per GI. MADI RAPP Nov 14, 2019 15:18
--- NOTE | 2019-11-14 15:22 | RAD ---
Exam: Video Swallowing Study Date: 11/14/2019 History: Clinical suspicion for aspiration, dysphagia, pneumonia Comparison: None Procedure: Video fluoroscopy of the neck was performed from the lateral projection following ingestion of various consistency barium which was administered by the speech pathologist. Fluoroscopy time: 1.5 minutes Findings/ Impression: There was no laryngeal penetration or aspiration of the thin, solid, mixed consistency barium observed. Soft tissue thickening within the proximal esophagus is not well delineated, possibly a cricopharyngeal bar. Please see speech pathology's report for further details of examination. Electronically signed by: Ishmael Bee MD (11/14/2019 3:19 PM) [id number]
--- NOTE | 2019-11-14 15:56 | PDOC ---
PULMONARY PROGRESS NOTES Subjective Patient feels more short of air today some diarrhea Vitals Vital Signs Date Time Temp Pulse Resp B/P (MAP) Pulse Ox O2 Delivery O2 Flow Rate FiO2 11/14/19 11:34 98.6 93 152/82 (105) 98.6 11/14/19 07:47 Nasal Cannula 2.0 11/14/19 07:00 20 96 ROS: No Nausea, No Chest Pain, No Abdominal Pain General: Alert Lungs: Clear Cardiovascular: S1, S2 Abdomen: Soft Neuro Exam: Alert Extremities: No Edema Skin: Warm Labs Laboratory Tests Test 11/12/19 16:00 11/12/19 16:35 11/12/19 17:20 11/12/19 20:56 O2 Saturation 93 % (92-99) Arterial Blood pH 7.41 (7.35-7.45) Arterial Blood pCO2 at Patient Temp 31 mmHg (35-46) Arterial Blood pO2 at Patient Temp 70 mmHg (65-108) Arterial Blood HCO3 19 mmol/L (21-28) Arterial Blood Base Excess -5 mmol/L (-3-3) FiO2 28 Glucose (Fingerstick) 153 mg/dL (70-99) 198 mg/dL (70-99) Hemoglobin 9.1 g/dL (13.0-17.5) Hematocrit 25.7 % (39.0-53.0) Test 11/13/19 03:20 11/13/19 07:11 11/13/19 11:23 11/13/19 16:34 White Blood Count 8.1 x10^3/uL (4.0-11.0) Red Blood Count 2.44 x10^6/uL (4.30-5.70) Hemoglobin 7.8 g/dL (13.0-17.5) Hematocrit 22.6 % (39.0-53.0) Mean Corpuscular Volume 92 fL (79-100) Mean Corpuscular Hemoglobin 32 pg (25-35) Mean Corpuscular Hemoglobin Concent 34 g/dL (31-37) Red Cell Distribution Width 15.1 % (11.5-14.5) Platelet Count 139 x10^3/uL (140-400) Sodium Level 139 mmol/L (136-145) Potassium Level 4.1 mmol/L (3.5-5.1) Chloride Level 108 mmol/L (98-107) Carbon Dioxide Level 19 mmol/L (21-32) Anion Gap 12 (6-14) Blood Urea Nitrogen 51 mg/dL (8-26) Creatinine 1.8 mg/dL (0.7-1.3) Estimated GFR (Cockcroft-Gault) 36.9 BUN/Creatinine Ratio 28 (6-20) Glucose Level 149 mg/dL (70-99) Calcium Level 7.5 mg/dL (8.5-10.1) Total Bilirubin 0.4 mg/dL (0.2-1.0) Aspartate Amino Transf (AST/SGOT) 134 U/L (15-37) Alanine Aminotransferase (ALT/SGPT) 18 U/L (16-63) Alkaline Phosphatase 59 U/L (46-116) Creatine Kinase 1154 U/L (39-308) Total Protein 5.4 g/dL (6.4-8.2) Albumin 2.1 g/dL (3.4-5.0) Albumin/Globulin Ratio 0.6 (1.0-1.7) Glucose (Fingerstick) 128 mg/dL (70-99) 155 mg/dL (70-99) 170 mg/dL (70-99) Test 11/14/19 04:00 11/14/19 07:54 11/14/19 10:45 White Blood Count 8.6 x10^3/uL (4.0-11.0) Red Blood Count 2.63 x10^6/uL (4.30-5.70) Hemoglobin 8.5 g/dL (13.0-17.5) Hematocrit 24.5 % (39.0-53.0) Mean Corpuscular Volume 93 fL (79-100) Mean Corpuscular Hemoglobin 32 pg (25-35) Mean Corpuscular Hemoglobin Concent 35 g/dL (31-37) Red Cell Distribution Width 14.8 % (11.5-14.5) Platelet Count 152 x10^3/uL (140-400) Sodium Level 140 mmol/L (136-145) Potassium Level 4.4 mmol/L (3.5-5.1) Chloride Level 108 mmol/L (98-107) Carbon Dioxide Level 19 mmol/L (21-32) Anion Gap 13 (6-14) Blood Urea Nitrogen 48 mg/dL (8-26) Creatinine 1.8 mg/dL (0.7-1.3) Estimated GFR (Cockcroft-Gault) 36.9 Glucose Level 202 mg/dL (70-99) Calcium Level 7.8 mg/dL (8.5-10.1) Creatine Kinase 601 U/L (39-308) Glucose (Fingerstick) 186 mg/dL (70-99) 170 mg/dL (70-99) Laboratory Tests Test 11/13/19 16:34 11/14/19 04:00 11/14/19 07:54 11/14/19 10:45 Glucose (Fingerstick) 170 mg/dL (70-99) 186 mg/dL (70-99) 170 mg/dL (70-99) White Blood Count 8.6 x10^3/uL (4.0-11.0) Red Blood Count 2.63 x10^6/uL (4.30-5.70) Hemoglobin 8.5 g/dL (13.0-17.5) Hematocrit 24.5 % (39.0-53.0) Mean Corpuscular Volume 93 fL (79-100) Mean Corpuscular Hemoglobin 32 pg (25-35) Mean Corpuscular Hemoglobin Concent 35 g/dL (31-37) Red Cell Distribution Width 14.8 % (11.5-14.5) Platelet Count 152 x10^3/uL (140-400) Sodium Level 140 mmol/L (136-145) Potassium Level 4.4 mmol/L (3.5-5.1) Chloride Level 108 mmol/L (98-107) Carbon Dioxide Level 19 mmol/L (21-32) Anion Gap 13 (6-14) Blood Urea Nitrogen 48 mg/dL (8-26) Creatinine 1.8 mg/dL (0.7-1.3) Estimated GFR (Cockcroft-Gault) 36.9 Glucose Level 202 mg/dL (70-99) Calcium Level 7.8 mg/dL (8.5-10.1) Creatine Kinase 601 U/L (39-308) Medications Active Scripts Medications Dose Route/Sig Max Daily Dose Days Date Category Carvedilol 25 Mg Tablet 25 Mg PO BIDWMEALS 11/08/19 Reported Cinnamon (Cinnamon Bark) 500 Mg Capsule 1,000 Mg PO DAILY 11/08/19 Reported Once Daily (Multivitamin) 1 Each Tablet 1 Tab PO DAILY 30 11/08/19 Reported Fish Oil 1,000 Mg Capsule ([place]-3 Fatty Acids/Fish Oil) 1 Each Capsule 2 Each PO BID 11/08/19 Reported Synthroid (Levothyroxine Sodium) 50 Mcg Tablet 1 Tab PO DAILY 11/08/19 Reported Atorvastatin Calcium 40 Mg Tablet 1 Tab PO DAILY 11/08/19 Reported Lisinopril 20 Mg Tablet 1 Tab PO DAILY 11/08/19 Reported Mexiletine Hcl 150 Mg Capsule 150 Mg PO BID 11/08/19 Reported Eliquis (Apixaban) 5 Mg Tablet 5 Mg PO BID 11/08/19 Reported Impression . IMPRESSION: 1. Abnormal CT chest revealing several findings including a right posterior hilar consolidation with some air bronchograms and bilateral pleural effusions. 2. Recent open reduction and internal fixation of the right intra-articular distal femoral fracture, date of 11/08. 3. Hypertension per Cardiology. 4. Chronic anemia. 5. Hyperlipidemia. 6. Combination of ischemic and nonischemic cardiomyopathy. 7. Acute on chronic systolic heart failure. 8. Coronary artery disease with previous PCI and stent placement. 9. Paroxysmal atrial fibrillation. 10. Acute kidney injury. 11. Peripheral arterial disease, status post right below-knee amputation. 12. Morbid obesity Recommend repeating CT chest in [address] CHEST Impression: No retroperitoneal hemorrhage identified. No ascites. Bilateral pleural effusions with adjacent atelectasis. Right posterior hilar consolidation or atelectasis. Patchy infiltrates along the right upper lung field. Interval follow-up to assess resolution recommended. Mild anasarca. Plan . Video dysphasia study Antibiotics Repeat CT chest in 2 months Augmentin for 3 weeks Case discussed with CECELIA Garibay MD Nov 14, 2019 15:56
[2019-11-14] MEDS: DRONABINOL 2.5 MG CAPSULE. PO SCH (17:01)
[2019-11-14 18:19] VITALS: BP 106/56
--- NOTE | 2019-11-14 18:27 | NUR ---
Pt's dinner FSBS 196. Pt administered total of 8.1 units, including correction and bolus dose. Pt stated he ate "about 1/3" of his meal.
--- NOTE | 2019-11-14 18:55 | PDOC ---
CARDIOLOGY PROGRESS NOTE SUBJECTIVE: [place] short of air this morning. Given lasix, feels better swallow study was negative. no arrhythmias. OBJECTIVE: Vital Signs/I&O: Vital Signs Date Time Temp Pulse Resp B/P (MAP) Pulse Ox O2 Delivery O2 Flow Rate FiO2 11/14/19 18:19 98.4 68 18 106/56 (73) 92 Room Air 98.4 11/14/19 07:47 2.0 I & O 11/13/19 11/13/19 11/14/19 14:59 22:59 06:59 Intake Total 240 ml 300 ml 300 ml Output Total 755 ml 600 ml 800 ml Balance -515 ml -300 ml -500 ml Objective: GEN.: No apparent distress. Alert and oriented. HEENT: Head is normocephalic, atraumatic NECK: Supple. LUNGS: Decreased breath sounds at lung bases HEART: RRR, S1, S2 present. Peripheral pulses intact ABDOMEN: Soft, nontender. Positive bowel sounds. EXTREMITIES: Without any cyanosis. NEUROLOGIC: Normal speech, normal tone PSYCHIATRIC: Normal affect, normal mood. SKIN: No ulcerations CURRENT MEDICATIONS: Current Medications Medications (Trade) Dose Ordered Sig/Nona Route PRN Reason Start Time Stop Time Status Last Admin Dose Admin Amoxicillin/ Clavulanate Potassium (Augmentin 875/ 125mg) 1 tab BID PO 11/13/19 21:00 11/14/19 09:43 Furosemide (Lasix) 40 mg 1X ONCE IVP 11/14/19 13:30 11/14/19 13:31 DC 11/14/19 13:29 Dronabinol (Marinol) 2.5 mg BIDACLD PO 11/14/19 16:30 11/14/19 17:01 Pantoprazole Sodium (PROTONIX VIAL for IV PUSH) 40 mg 1X ONCE IVP 11/14/19 13:30 11/14/19 13:31 DC 11/14/19 13:29 Barium Sulfate (Varibar Thin Liquid Apple) 148 gm 1X ONCE PO 11/14/19 14:45 11/14/19 14:46 DC 11/14/19 15:00 Barium Sulfate (E-Z-Hd) 340 gm 1X ONCE PO 11/14/19 14:30 11/14/19 14:31 DC 11/14/19 14:30 Barium Sulfate (Liquid E-Z Paque) 355 ml 1X ONCE PO 11/14/19 14:30 11/14/19 14:31 DC 11/14/19 14:30 DIAGNOSTIC TESTING: labs reviewed, Cr 1.8 Labs: Laboratory Tests 11/14/19 04:00 Laboratory Tests Test 11/14/19 04:00 11/14/19 07:54 11/14/19 10:45 11/14/19 16:08 White Blood Count 8.6 x10^3/uL (4.0-11.0) Red Blood Count 2.63 x10^6/uL (4.30-5.70) L Hemoglobin 8.5 g/dL (13.0-17.5) L Hematocrit 24.5 % (39.0-53.0) L Mean Corpuscular Volume 93 fL (79-100) Mean Corpuscular Hemoglobin 32 pg (25-35) Mean Corpuscular Hemoglobin Concent 35 g/dL (31-37) Red Cell Distribution Width 14.8 % (11.5-14.5) H Platelet Count 152 x10^3/uL (140-400) Sodium Level 140 mmol/L (136-145) Potassium Level 4.4 mmol/L (3.5-5.1) Chloride Level 108 mmol/L (98-107) H Carbon Dioxide Level 19 mmol/L (21-32) L Anion Gap 13 (6-14) Blood Urea Nitrogen 48 mg/dL (8-26) H Creatinine 1.8 mg/dL (0.7-1.3) H Estimated GFR (Cockcroft-Gault) 36.9 Glucose Level 202 mg/dL (70-99) H Calcium Level 7.8 mg/dL (8.5-10.1) L Creatine Kinase 601 U/L (39-308) H Glucose (Fingerstick) 186 mg/dL (70-99) H 170 mg/dL (70-99) H 196 mg/dL (70-99) H ASSESSMENT: 1. Mixed ischemic and NICM. 2. Labile BP 3. Acute on chronic diastolic HF. 4. Recent right hip fracture. PLAN: 1.Currently off all CV meds. Will use Hydralazine prn for SBP > 160. Supportive care. Continue lasix prn. he looks much better today. 2. Echo at on 11/07/2019 revealed normal LV function. Cr 07/2019 was 1.9. He appears to close to his baseline. Supportive care. Thanks Justicifation of Admission Dx: Justifications for Admission: Justification of Admission Dx: Yes CHF: Cardiac Arrhythmias SUNDAR BOYER MD Nov 14, 2019 18:55
[2019-11-14] MEDS ORDERED: hydrALAZINE 20 MG/ML VIAL. IVP PRN (19:00)
--- NOTE | 2019-11-14 21:00 | NUR ---
Patients HS FSBS 193, He stated that he administered total correction dose 2 units per his insulin pump.
[2019-11-14] MEDS: LACTOBACILLUS RHAMNOSUS GG 1 CAPSULE. PO SCH (21:33)
[2019-11-14] MEDS: oxyCODONE IR 5 MG TABLET PO PRN (21:34)
[2019-11-14 23:40] VITALS: BP 119/52
[2019-11-15 03:00] VITALS: BP 139/64
[2019-11-15 04:21] LABS: HEMATOCRIT 22.7 % (39.0-53.0); HEMOGLOBIN 7.8 g/dL (13.0-17.5); RED BLOOD COUNT 2.46 x10^6/uL (4.30-5.70); WHITE BLOOD COUNT 9.1 x10^3/uL (4.0-11.0)
[2019-11-15 04:41] LABS: ALBUMIN/GLOBULIN RATIO 0.6 (1.0-1.7); CALCIUM 7.6 mg/dL (8.5-10.1); CREATININE 1.8 mg/dL (0.7-1.3); GFR 36.9; TOTAL BILIRUBIN 0.6 mg/dL (0.2-1.0); TOTAL PROTEIN 5.6 g/dL (6.4-8.2)
[2019-11-15] MEDS: LEVOTHYROXINE 50 MCG TABLET PO SCH (05:51)
--- NOTE | 2019-11-15 06:15 | PDOC ---
PULMONARY PROGRESS NOTES Subjective feels better, sob better, has occ cough Vitals Vital Signs Date Time Temp Pulse Resp B/P (MAP) Pulse Ox O2 Delivery O2 Flow Rate FiO2 11/15/19 03:00 98.3 69 18 139/64 (89) 94 Room Air 98.3 11/14/19 22:34 2.0 ROS: No Nausea, No Chest Pain, No Abdominal Pain General: Alert HEENT: Other (nc at perrl ) Lungs: Clear Cardiovascular: S1, S2 Abdomen: Soft Neuro Exam: Alert Extremities: No Edema Skin: Warm Labs Laboratory Tests Test 11/13/19 07:11 11/13/19 11:23 11/13/19 16:34 11/14/19 04:00 Glucose (Fingerstick) 128 mg/dL (70-99) 155 mg/dL (70-99) 170 mg/dL (70-99) White Blood Count 8.6 x10^3/uL (4.0-11.0) Red Blood Count 2.63 x10^6/uL (4.30-5.70) Hemoglobin 8.5 g/dL (13.0-17.5) Hematocrit 24.5 % (39.0-53.0) Mean Corpuscular Volume 93 fL (79-100) Mean Corpuscular Hemoglobin 32 pg (25-35) Mean Corpuscular Hemoglobin Concent 35 g/dL (31-37) Red Cell Distribution Width 14.8 % (11.5-14.5) Platelet Count 152 x10^3/uL (140-400) Sodium Level 140 mmol/L (136-145) Potassium Level 4.4 mmol/L (3.5-5.1) Chloride Level 108 mmol/L (98-107) Carbon Dioxide Level 19 mmol/L (21-32) Anion Gap 13 (6-14) Blood Urea Nitrogen 48 mg/dL (8-26) Creatinine 1.8 mg/dL (0.7-1.3) Estimated GFR (Cockcroft-Gault) 36.9 Glucose Level 202 mg/dL (70-99) Calcium Level 7.8 mg/dL (8.5-10.1) Creatine Kinase 601 U/L (39-308) Test 11/14/19 07:54 11/14/19 10:45 11/14/19 16:08 11/14/19 21:00 Glucose (Fingerstick) 186 mg/dL (70-99) 170 mg/dL (70-99) 196 mg/dL (70-99) 193 mg/dL (70-99) Test 11/15/19 04:00 11/15/19 05:00 White Blood Count 9.1 x10^3/uL (4.0-11.0) Red Blood Count 2.46 x10^6/uL (4.30-5.70) Hemoglobin 7.8 g/dL (13.0-17.5) Hematocrit 22.7 % (39.0-53.0) Mean Corpuscular Volume 93 fL (79-100) Mean Corpuscular Hemoglobin 32 pg (25-35) Mean Corpuscular Hemoglobin Concent 35 g/dL (31-37) Red Cell Distribution Width 15.0 % (11.5-14.5) Platelet Count 170 x10^3/uL (140-400) Sodium Level 139 mmol/L (136-145) Potassium Level 4.0 mmol/L (3.5-5.1) Chloride Level 108 mmol/L (98-107) Carbon Dioxide Level 22 mmol/L (21-32) Anion Gap 9 (6-14) Blood Urea Nitrogen 46 mg/dL (8-26) Creatinine 1.8 mg/dL (0.7-1.3) Estimated GFR (Cockcroft-Gault) 36.9 BUN/Creatinine Ratio 26 (6-20) Glucose Level 146 mg/dL (70-99) Calcium Level 7.6 mg/dL (8.5-10.1) Total Bilirubin 0.6 mg/dL (0.2-1.0) Aspartate Amino Transf (AST/SGOT) 55 U/L (15-37) Alanine Aminotransferase (ALT/SGPT) 24 U/L (16-63) Alkaline Phosphatase 63 U/L (46-116) Total Protein 5.6 g/dL (6.4-8.2) Albumin 2.0 g/dL (3.4-5.0) Albumin/Globulin Ratio 0.6 (1.0-1.7) Thyroid Stimulating Hormone (TSH) 0.421 uIU/mL (0.358-3.74) QX-Aox-K-Type Natriuretic Peptide > 49760 pg/mL (0-449) Laboratory Tests Test 11/14/19 07:54 11/14/19 10:45 11/14/19 16:08 11/14/19 21:00 Glucose (Fingerstick) 186 mg/dL (70-99) 170 mg/dL (70-99) 196 mg/dL (70-99) 193 mg/dL (70-99) Test 11/15/19 04:00 11/15/19 05:00 White Blood Count 9.1 x10^3/uL (4.0-11.0) Red Blood Count 2.46 x10^6/uL (4.30-5.70) Hemoglobin 7.8 g/dL (13.0-17.5) Hematocrit 22.7 % (39.0-53.0) Mean Corpuscular Volume 93 fL (79-100) Mean Corpuscular Hemoglobin 32 pg (25-35) Mean Corpuscular Hemoglobin Concent 35 g/dL (31-37) Red Cell Distribution Width 15.0 % (11.5-14.5) Platelet Count 170 x10^3/uL (140-400) Sodium Level 139 mmol/L (136-145) Potassium Level 4.0 mmol/L (3.5-5.1) Chloride Level 108 mmol/L (98-107) Carbon Dioxide Level 22 mmol/L (21-32) Anion Gap 9 (6-14) Blood Urea Nitrogen 46 mg/dL (8-26) Creatinine 1.8 mg/dL (0.7-1.3) Estimated GFR (Cockcroft-Gault) 36.9 BUN/Creatinine Ratio 26 (6-20) Glucose Level 146 mg/dL (70-99) Calcium Level 7.6 mg/dL (8.5-10.1) Total Bilirubin 0.6 mg/dL (0.2-1.0) Aspartate Amino Transf (AST/SGOT) 55 U/L (15-37) Alanine Aminotransferase (ALT/SGPT) 24 U/L (16-63) Alkaline Phosphatase 63 U/L (46-116) Total Protein 5.6 g/dL (6.4-8.2) Albumin 2.0 g/dL (3.4-5.0) Albumin/Globulin Ratio 0.6 (1.0-1.7) Thyroid Stimulating Hormone (TSH) 0.421 uIU/mL (0.358-3.74) NM-Vty-D-Type Natriuretic Peptide > 40528 pg/mL (0-449) Medications Active Scripts Medications Dose Route/Sig Max Daily Dose Days Date Category Carvedilol 25 Mg Tablet 25 Mg PO BIDWMEALS 11/08/19 Reported Cinnamon (Cinnamon Bark) 500 Mg Capsule 1,000 Mg PO DAILY 11/08/19 Reported Once Daily (Multivitamin) 1 Each Tablet 1 Tab PO DAILY 30 11/08/19 Reported Fish Oil 1,000 Mg Capsule ([place]-3 Fatty Acids/Fish Oil) 1 Each Capsule 2 Each PO BID 11/08/19 Reported Synthroid (Levothyroxine Sodium) 50 Mcg Tablet 1 Tab PO DAILY 11/08/19 Reported Atorvastatin Calcium 40 Mg Tablet 1 Tab PO DAILY 11/08/19 Reported Lisinopril 20 Mg Tablet 1 Tab PO DAILY 11/08/19 Reported Mexiletine Hcl 150 Mg Capsule 150 Mg PO BID 11/08/19 Reported Eliquis (Apixaban) 5 Mg Tablet 5 Mg PO BID 11/08/19 Reported Impression . IMPRESSION: 1. Abnormal CT chest revealing several findings including a right posterior hilar consolidation with some air bronchograms and bilateral pleural effusions. 2. Recent open reduction and internal fixation of the right intra-articular distal femoral fracture, date of 11/08. 3. Hypertension per Cardiology. 4. Chronic anemia. 5. Hyperlipidemia. 6. Combination of ischemic and nonischemic cardiomyopathy. 7. Acute on chronic systolic heart failure. 8. Coronary artery disease with previous PCI and stent placement. 9. Paroxysmal atrial fibrillation. 10. Acute kidney injury. 11. Peripheral arterial disease, status post right below-knee amputation. 12. Morbid obesity Recommend repeating CT chest in [address] CHEST Impression: No retroperitoneal hemorrhage identified. No ascites. Bilateral pleural effusions with adjacent atelectasis. Right posterior hilar consolidation or atelectasis. Patchy infiltrates along the right upper lung field. Interval follow-up to assess resolution recommended. Mild anasarca. Plan . Video dysphasia study, There was no laryngeal penetration or aspiration of the thin, solid, mixed consistency barium observed. Soft tissue thickening within the proximal esophagus is not well delineated, possibly a cricopharyngeal bar. Antibiotics Repeat CT chest in 2 months Augmentin for 3 weeks PRN SHILPI Nova rn, MD Nov 15, 2019 06:15
[2019-11-15 07:00] VITALS: BP 128/69
[2019-11-15] MEDS ORDERED: PANTOPRAZOLE IV PUSH 40 MG VIAL. IVP SCH (07:30)
[2019-11-15] MEDS: OMEGA-3 FATTY ACIDS/FISH OIL 1,000 MG CAPSULE. PO SCH ×2 (08:34→21:48)
[2019-11-15] MEDS: LACTOBACILLUS RHAMNOSUS GG 1 CAPSULE. PO SCH ×2 (08:34→21:48)
[2019-11-15] MEDS: LINEZOLID 600 MG TABLET PO SCH ×2 (08:34→21:48)
[2019-11-15] MEDS: ASCORBIC ACID 500 MG TABLET PO SCH (08:34)
[2019-11-15] MEDS: MULTIVITAMIN with MINERAL TABLET. PO SCH (08:34)
[2019-11-15] MEDS: ATORVASTATIN CALCIUM 40 MG TABLET. PO SCH (08:34)
[2019-11-15] MEDS: PANTOPRAZOLE 40 MG TABLET.DR. PO SCH (08:34)
[2019-11-15] MEDS: AMOXICILLIN/K CLAV 875/125MG TABLET. PO SCH ×2 (08:34→21:48)
[2019-11-15] MEDS: DOCUSATE SODIUM 100 MG CAPSULE. PO SCH ×2 (08:37→21:00)
[2019-11-15] MEDS ORDERED: FUROSEMIDE 40 MG/4 ML VIAL. IVP ONE (09:30)
--- NOTE | 2019-11-15 09:39 | PN ---
DATE: 11/15/2019 SUBJECTIVE: The patient is resting, slightly propped up in bed, in no apparent respiratory distress. He is awake, alert, definitely feeling much better than yesterday. He has had eaten his breakfast without difficulty. His esophagogram and video swallowing evaluation showed no evidence of aspiration. PHYSICAL EXAMINATION: GENERAL: When I examined him this morning, he looked pale, but no jaundice, cyanosis or thyromegaly. No jugular venous distention. No lower limb edema. VITAL SIGNS: His heart rate was 69, blood pressure was 139/64, temperature was 98.3, respiratory rate was 18 and oxygen saturation was 94%. HEAD, EYES, EARS, NOSE AND THROAT: Showed normocephalic, atraumatic. NECK: Supple. HEART: Showed normal first and second heart sounds. No gallop or murmur. CHEST: Clear to auscultation. No crepitation or rhonchi. ABDOMEN: Distended, soft, nontender. NEUROLOGIC: He was definitely more awake, alert, responding appropriately. All cranial nerves intact. He moves his upper extremities to much greater extent than lower extremities as he has right distal femur fracture, status post open reduction and internal fixation. His intake was 840, output was 2155. LABORATORY DATA: As of this morning, his white cell count was 9100, hemoglobin 7.8, hematocrit 22.7, MCV 93, and platelet count of 170,000. His chemistry showed a serum sodium 139, potassium 4, chloride 108, bicarbonate 22, anion gap of 9, BUN 46, creatinine 1.8, estimated GFR was 37 mL per minute, his glucose 146, calcium was 7.9. Total bilirubin, AST, ALT, alkaline phosphatase were normal. Total protein was 5.6, albumin 2. TSH was 0.41. Beta natriuretic peptide was more than 35,000. ASSESSMENT: 1. Fall, sustaining right closed intra-articular distal femur fracture, status post open reduction and internal fixation using Garcia and Nephew lateral and distal femoral locking plate. 2. Acute kidney injury with creatinine that has risen up to 3.7. His creatinine this morning was down to 1.8. 3. Acute blood loss anemia with hemoglobin and hematocrit that dropped down to 6.5 and 19.4. He received 2 units of packed RBCs. His most recent hemoglobin was 7.8 and hematocrit of 22.7. The patient has multiple other medical problems including: A. Combined ischemic and nonischemic cardiomyopathy. B. Coronary artery disease, status post percutaneous coronary intervention and stent deployment. C. Peripheral arterial disease. D. Chronic kidney disease. E. Hypertension. F. History of atrial fibrillation, paroxysmal, which he is on apixaban that he is on hold. His heart rate is well controlled. 4. Transient ischemic attack. 5. The patient has bilateral pleural effusion, possible pneumonia involving his right lower lobe, for which he is now on Zosyn and Zyvox. There is also questionable pulmonary congestion. PLAN: My plan is to continue his antibiotics. Continue with pain management. He will have one more Lasix 40 mg once this morning. We will repeat his labs again tomorrow. NIKKO BEASLEY MD DR: PETER/rossi JOB#: [id number] / [id number]
[2019-11-15 11:00] VITALS: BP 127/66
[2019-11-15] MEDS: DRONABINOL 2.5 MG CAPSULE. PO SCH ×2 (12:44→18:14)
[2019-11-15 15:00] VITALS: BP 129/48
[2019-11-15] MEDS: oxyCODONE IR 5 MG TABLET PO PRN (18:44)
[2019-11-15 19:19] VITALS: BP 123/63
[2019-11-15 23:07] VITALS: BP 116/63
[2019-11-16 03:19] VITALS: BP 108/59
[2019-11-16] MEDS: LEVOTHYROXINE 50 MCG TABLET PO SCH (05:46)
[2019-11-16] MEDS: PANTOPRAZOLE 40 MG TABLET.DR. PO SCH (05:46)
[2019-11-16 07:00] VITALS: BP 144/76
[2019-11-16 07:35] LABS: HEMATOCRIT 25.2 % (39.0-53.0); HEMOGLOBIN 8.5 g/dL (13.0-17.5)
--- NOTE | 2019-11-16 08:00 | PDOC ---
PULMONARY PROGRESS NOTES Subjective feels better, sob better, has occ cough, on ra Vitals Vital Signs Date Time Temp Pulse Resp B/P (MAP) Pulse Ox O2 Delivery O2 Flow Rate FiO2 11/16/19 03:19 97.4 84 20 108/59 (75) 96 Room Air 97.4 ROS: No Nausea, No Chest Pain, No Abdominal Pain General: Alert HEENT: Other (nc at perrl ) Lungs: Clear Cardiovascular: S1, S2 Abdomen: Soft Neuro Exam: Alert Extremities: No Edema Skin: Warm Labs Laboratory Tests Test 11/14/19 10:45 11/14/19 16:08 11/14/19 21:00 11/15/19 04:00 Glucose (Fingerstick) 170 mg/dL (70-99) 196 mg/dL (70-99) 193 mg/dL (70-99) White Blood Count 9.1 x10^3/uL (4.0-11.0) Red Blood Count 2.46 x10^6/uL (4.30-5.70) Hemoglobin 7.8 g/dL (13.0-17.5) Hematocrit 22.7 % (39.0-53.0) Mean Corpuscular Volume 93 fL (79-100) Mean Corpuscular Hemoglobin 32 pg (25-35) Mean Corpuscular Hemoglobin Concent 35 g/dL (31-37) Red Cell Distribution Width 15.0 % (11.5-14.5) Platelet Count 170 x10^3/uL (140-400) Sodium Level 139 mmol/L (136-145) Potassium Level 4.0 mmol/L (3.5-5.1) Chloride Level 108 mmol/L (98-107) Carbon Dioxide Level 22 mmol/L (21-32) Anion Gap 9 (6-14) Blood Urea Nitrogen 46 mg/dL (8-26) Creatinine 1.8 mg/dL (0.7-1.3) Estimated GFR (Cockcroft-Gault) 36.9 BUN/Creatinine Ratio 26 (6-20) Glucose Level 146 mg/dL (70-99) Calcium Level 7.6 mg/dL (8.5-10.1) Total Bilirubin 0.6 mg/dL (0.2-1.0) Aspartate Amino Transf (AST/SGOT) 55 U/L (15-37) Alanine Aminotransferase (ALT/SGPT) 24 U/L (16-63) Alkaline Phosphatase 63 U/L (46-116) Total Protein 5.6 g/dL (6.4-8.2) Albumin 2.0 g/dL (3.4-5.0) Albumin/Globulin Ratio 0.6 (1.0-1.7) Thyroid Stimulating Hormone (TSH) 0.421 uIU/mL (0.358-3.74) Test 11/15/19 05:00 11/15/19 08:01 11/15/19 12:18 11/15/19 16:55 FI-Utq-P-Type Natriuretic Peptide > 10163 pg/mL (0-449) Glucose (Fingerstick) 143 mg/dL (70-99) 225 mg/dL (70-99) 160 mg/dL (70-99) Test 11/15/19 21:46 11/16/19 06:25 Glucose (Fingerstick) 106 mg/dL (70-99) Hemoglobin 8.5 g/dL (13.0-17.5) Hematocrit 25.2 % (39.0-53.0) Laboratory Tests Test 11/15/19 08:01 11/15/19 12:18 11/15/19 16:55 11/15/19 21:46 Glucose (Fingerstick) 143 mg/dL (70-99) 225 mg/dL (70-99) 160 mg/dL (70-99) 106 mg/dL (70-99) Test 11/16/19 06:25 Hemoglobin 8.5 g/dL (13.0-17.5) Hematocrit 25.2 % (39.0-53.0) Medications Active Scripts Medications Dose Route/Sig Max Daily Dose Days Date Category Carvedilol 25 Mg Tablet 25 Mg PO BIDWMEALS 11/08/19 Reported Cinnamon (Cinnamon Bark) 500 Mg Capsule 1,000 Mg PO DAILY 11/08/19 Reported Once Daily (Multivitamin) 1 Each Tablet 1 Tab PO DAILY 30 11/08/19 Reported Fish Oil 1,000 Mg Capsule ([place]-3 Fatty Acids/Fish Oil) 1 Each Capsule 2 Each PO BID 11/08/19 Reported Synthroid (Levothyroxine Sodium) 50 Mcg Tablet 1 Tab PO DAILY 11/08/19 Reported Atorvastatin Calcium 40 Mg Tablet 1 Tab PO DAILY 11/08/19 Reported Lisinopril 20 Mg Tablet 1 Tab PO DAILY 11/08/19 Reported Mexiletine Hcl 150 Mg Capsule 150 Mg PO BID 11/08/19 Reported Eliquis (Apixaban) 5 Mg Tablet 5 Mg PO BID 11/08/19 Reported Impression . IMPRESSION: 1. Abnormal CT chest revealing several findings including a right posterior hilar consolidation with some air bronchograms and bilateral pleural effusions. 2. Recent open reduction and internal fixation of the right intra-articular distal femoral fracture, date of 11/08. 3. Hypertension per Cardiology. 4. Chronic anemia. 5. Hyperlipidemia. 6. Combination of ischemic and nonischemic cardiomyopathy. 7. Acute on chronic systolic heart failure. 8. Coronary artery disease with previous PCI and stent placement. 9. Paroxysmal atrial fibrillation. 10. Acute kidney injury. 11. Peripheral arterial disease, status post right below-knee amputation. 12. Morbid obesity Recommend repeating CT chest in [address] CHEST Impression: No retroperitoneal hemorrhage identified. No ascites. Bilateral pleural effusions with adjacent atelectasis. Right posterior hilar consolidation or atelectasis. Patchy infiltrates along the right upper lung field. Interval follow-up to assess resolution recommended. Mild anasarca. Plan . Video dysphasia study, There was no laryngeal penetration or aspiration of the thin, solid, mixed consistency barium observed. Soft tissue thickening within the proximal esophagus is not well delineated, possibly a cricopharyngeal bar. Antibiotics Repeat CT chest in 2 months Augmentin for 3 weeks PRN Lasix discussed w SHILPI Merritt MD Nov 16, 2019 08:00
[2019-11-16 08:01] LABS: CALCIUM 7.9 mg/dL (8.5-10.1); CREATININE 1.8 mg/dL (0.7-1.3); GFR 36.9; POTASSIUM 4.1 mmol/L (3.5-5.1)
[2019-11-16] MEDS: AMOXICILLIN/K CLAV 875/125MG TABLET. PO SCH ×2 (08:52→21:18)
[2019-11-16] MEDS: LACTOBACILLUS RHAMNOSUS GG 1 CAPSULE. PO SCH ×2 (08:52→21:18)
[2019-11-16] MEDS: ATORVASTATIN CALCIUM 40 MG TABLET. PO SCH (08:52)
[2019-11-16] MEDS: ASCORBIC ACID 500 MG TABLET PO SCH (08:52)
[2019-11-16] MEDS: LINEZOLID 600 MG TABLET PO SCH ×2 (08:52→21:18)
[2019-11-16] MEDS: OMEGA-3 FATTY ACIDS/FISH OIL 1,000 MG CAPSULE. PO SCH ×2 (08:52→21:18)
[2019-11-16] MEDS: MULTIVITAMIN with MINERAL TABLET. PO SCH (08:52)
[2019-11-16] MEDS: DOCUSATE SODIUM 100 MG CAPSULE. PO SCH ×2 (08:53→21:18)
[2019-11-16] MEDS ORDERED: FUROSEMIDE 40 MG TABLET. PO ONE (09:15)
--- NOTE | 2019-11-16 09:21 | PN ---
DATE: 11/16/2019 SUBJECTIVE: The patient is sitting propped up in bed, eating his breakfast comfortably, in no apparent distress. On questioning him, he denied any complaint. The nursing staff did not voice any concern and stated that he had an uneventful night. He did manage to get out of the bed to the chair, has no further episodes of dizziness or lightheadedness. PHYSICAL EXAMINATION: GENERAL: When I examined him this morning, he looked pale. No jaundice, cyanosis or thyromegaly. No jugular venous distention or limb edema. VITAL SIGNS: His heart rate was 84, blood pressure was 108/59, temperature was 97.4, respiratory rate was 20, and oxygen saturation was 96% on room air. HEAD, EYES, EARS, NOSE AND THROAT: Showed normocephalic, atraumatic. NECK: Supple. HEART: Normal first and second heart sounds. No gallop or murmur. CHEST: Clear to auscultation. No crepitation or rhonchi. ABDOMEN: Distended, soft, nontender. NEUROLOGIC: He is definitely awake, alert, responding appropriately. All cranial nerves are intact. He moves upper extremities without difficulty. His intake over the last 24 hours was 720, output was 1930. LABORATORY DATA: As of this morning, his hemoglobin was 8.5, hematocrit 25. Serum sodium was 140, potassium 4.1, chloride 107, bicarbonate 21, anion gap of 12, BUN 46, creatinine 1.8, estimated GFR was 36 mL per minute. His glucose 127, calcium was 7.9. ASSESSMENT: 1. Fall, sustaining right closed intra-articular distal femur fracture, status post open reduction and internal fixation using Garcia and Nephew lateral and distal femoral locking plate. 2. Acute kidney injury with creatinine that has risen up to 3.7. His creatinine is now back to his baseline at 1.8. 3. Acute blood loss anemia with hemoglobin and hematocrit that dropped down to 6.5 and 19.4. He has received 2 units of packed RBCs. His most recent hemoglobin and hematocrit was 8.5 and 24. 4. The patient has multiple other medical problems including: A. Combined ischemic and nonischemic cardiomyopathy. B. Coronary artery disease, status post percutaneous coronary intervention stent deployment. C. Peripheral arterial disease. D. Chronic kidney disease. E. Hypertension. F. Atrial fibrillation, paroxysmal, currently on apixaban. His heart rate is well controlled. 5. Transient ischemic attack. 6. The patient has bilateral pleural effusion, possible pneumonia involving his right lower lobe, for which he is now on Zyvox and Zosyn. PLAN: To continue IV antibiotic. Continue with pain management. I will give him another dose of Lasix by mouth and hopefully if he was accepted at [facility] tomorrow, we will be discharged him there to continue the process of rehabilitation. NIKKO BEASLEY MD DR: PETER/rossi JOB#: [id number] / [id number]
[2019-11-16 11:00] VITALS: BP 132/67
[2019-11-16] MEDS: DRONABINOL 2.5 MG CAPSULE. PO SCH ×2 (11:30→16:30)
[2019-11-16 15:00] VITALS: BP 138/71
[2019-11-16 19:00] VITALS: BP 134/70
[2019-11-16] MEDS: oxyCODONE IR 5 MG TABLET PO PRN (21:18)
[2019-11-16 22:45] VITALS: BP 131/69
[2019-11-17 03:08] VITALS: BP 130/70
[2019-11-17] MEDS: LEVOTHYROXINE 50 MCG TABLET PO SCH (05:01)
[2019-11-17] MEDS: PANTOPRAZOLE 40 MG TABLET.DR. PO SCH (05:02)
[2019-11-17 06:52] LABS: HEMATOCRIT 24.5 % (39.0-53.0); HEMOGLOBIN 8.4 g/dL (13.0-17.5); RED BLOOD COUNT 2.63 x10^6/uL (4.30-5.70); RED CELL DISTRIBUTION WIDTH 15.2 % (11.5-14.5); WHITE BLOOD COUNT 6.4 x10^3/uL (4.0-11.0)
[2019-11-17 07:00] VITALS: BP 143/78
[2019-11-17 07:02] LABS: ALBUMIN/GLOBULIN RATIO 0.6 (1.0-1.7); CALCIUM 7.6 mg/dL (8.5-10.1); CREATININE 1.8 mg/dL (0.7-1.3); GFR 36.9; POTASSIUM 3.7 mmol/L (3.5-5.1); TOTAL BILIRUBIN 0.8 mg/dL (0.2-1.0); TOTAL PROTEIN 5.6 g/dL (6.4-8.2)
[2019-11-17] MEDS: ATORVASTATIN CALCIUM 40 MG TABLET. PO SCH (08:44)
[2019-11-17] MEDS: OMEGA-3 FATTY ACIDS/FISH OIL 1,000 MG CAPSULE. PO SCH (08:44)
[2019-11-17] MEDS: ASCORBIC ACID 500 MG TABLET PO SCH (08:44)
[2019-11-17] MEDS: AMOXICILLIN/K CLAV 875/125MG TABLET. PO SCH (08:44)
[2019-11-17] MEDS: LACTOBACILLUS RHAMNOSUS GG 1 CAPSULE. PO SCH (08:44)
[2019-11-17] MEDS: MULTIVITAMIN with MINERAL TABLET. PO SCH (08:44)
[2019-11-17] MEDS: LINEZOLID 600 MG TABLET PO SCH (08:45)
[2019-11-17] MEDS: DOCUSATE SODIUM 100 MG CAPSULE. PO SCH (09:00)
--- NOTE | 2019-11-17 09:12 | NUR ---
non administered Colace due to multiple loose stools.
--- NOTE | 2019-11-17 09:22 | PN ---
DATE: 11/17/2019 SUBJECTIVE: The patient is resting, slightly propped up in bed, eating his breakfast comfortably, in no apparent distress. He denied any complaint. The nursing staff did not voice any concerns that he has an uneventful night, so we took the catheter out and he has managed to sit on the bedside commode and sat also in the chair. PHYSICAL EXAMINATION: GENERAL: When I examined him this morning, he looked pale, no jaundice, cyanosis or thyromegaly. No jugular venous distention. No limb edema. VITAL SIGNS: Her heart rate was 90, blood pressure was 143/78, temperature was 97.9, respiratory rate was 18 and oxygen saturation was 98% on room air. HEAD, EYES, EARS, NOSE AND THROAT: Showed normocephalic, atraumatic. NECK: Supple. HEART: Showed normal first and second heart sounds with no gallop, rub or murmur. CHEST: Clear to auscultation. No crepitation or rhonchi. ABDOMEN: Distended, soft, nontender. NEUROLOGIC: He is awake, alert, responding appropriately. All cranial nerves are intact. He moves extremities without difficulty. He is status post open reduction and internal fixation of the right distal femur fracture. His intake over the last 24 hours was incompletely recorded, output was 1925. LABORATORY DATA: His lab work this morning showed a serum sodium 140, potassium 3.7, chloride 107, bicarbonate 23, anion gap of 10, BUN 43, creatinine 1.8, estimated GFR was 37 mL per minute, his glucose 111, calcium was 7.6. Total bilirubin, AST, ALT, alkaline phosphatase were normal. Total protein was 5.6, albumin 2. His white cell count was 6400, hemoglobin 8.4, hematocrit 24.5, MCV 93 and platelet count of 188,000. ASSESSMENT: 1. Fall, sustaining right closed intra-articular distal femur fracture, status post open reduction and internal fixation using Garcia and Nephew lateral and distal femoral locking plate. 2. Acute kidney injury with a creatinine that has risen up to 3.7, now back to baseline of 1.8. 3. Acute blood loss anemia with hemoglobin and hematocrit dropped down to 6.5 and 19.4. He has received 2 units of packed RBCs. Most recent hemoglobin is 8.4, hematocrit 24. 4. The patient has multiple other medical problems including: A. Combined ischemic and nonischemic cardiomyopathy, clinically well compensated. B. Coronary artery disease, status post percutaneous coronary intervention with stent deployment, currently chest pain free. C. Peripheral arterial disease. D. Chronic kidney disease. E. Hypertension. F. Atrial fibrillation, off apixaban. His heart rate is well controlled. 5. Transient ischemic attack. 6. The patient has bilateral pleural effusion, possible pneumonia involving his right lower lobe, for which he was on Zyvox and Zosyn. PLAN: Obviously to continue with oral antibiotic. Continue with all his other medications. I have consulted the case management to see if he can be transferred to [facility] to continue the process of rehabilitation and wound care. NIKKO BEASLEY MD DR: PETER/rossi JOB#: [id number] / [id number]
--- NOTE | 2019-11-17 10:29 | NUR ---
SS following up with discharge planning. SS reviewed pt chart and discussed with Dr. Suarez. Pt accepted at [facility], ; fax [phone]. Discharge orders received. SS phoned and faxed discharge orders and clinical updates to [facility]. SS currently awaiting transportation time from [facility] and will proceed accordingly with discharge planning.
[2019-11-17 10:40] VITALS: BP 123/69
[2019-11-17] MEDS: DRONABINOL 2.5 MG CAPSULE. PO SCH (11:48)
--- NOTE | 2019-11-17 12:06 | PDOC ---
Subjective: Subjective: Thinks swallowing is a little better. No abd pain. Not much appetite. Objective: Vital Signs: Vital Signs Date Time Temp Pulse Resp B/P (MAP) Pulse Ox O2 Delivery O2 Flow Rate FiO2 11/17/19 10:40 97.6 65 18 123/69 (87) 98 Room Air 97.6 11/16/19 22:18 2.0 Labs: Laboratory Tests Test 11/16/19 17:01 11/16/19 21:07 11/17/19 05:26 11/17/19 07:18 Glucose (Fingerstick) 197 mg/dL 156 mg/dL 116 mg/dL White Blood Count 6.4 x10^3/uL Red Blood Count 2.63 x10^6/uL Hemoglobin 8.4 g/dL Hematocrit 24.5 % Mean Corpuscular Volume 93 fL Mean Corpuscular Hemoglobin 32 pg Mean Corpuscular Hemoglobin Concent 34 g/dL Red Cell Distribution Width 15.2 % Platelet Count 188 x10^3/uL Sodium Level 140 mmol/L Potassium Level 3.7 mmol/L Chloride Level 107 mmol/L Carbon Dioxide Level 23 mmol/L Anion Gap 10 Blood Urea Nitrogen 43 mg/dL Creatinine 1.8 mg/dL Estimated GFR (Cockcroft-Gault) 36.9 BUN/Creatinine Ratio 24 Glucose Level 111 mg/dL Calcium Level 7.6 mg/dL Total Bilirubin 0.8 mg/dL Aspartate Amino Transf (AST/SGOT) 43 U/L Alanine Aminotransferase (ALT/SGPT) 31 U/L Alkaline Phosphatase 68 U/L Total Protein 5.6 g/dL Albumin 2.0 g/dL Albumin/Globulin Ratio 0.6 Test 11/17/19 11:16 Glucose (Fingerstick) 137 mg/dL PE: GEN: NAD LUNGS: CTAB HEART: RRR ABD: S/ND/NT NEURO/PSYCH: A & O 3 A/P: Right femur fx s/p ORIF Anemia (stable), A Fib (on Eliquis), CKD H/o GERD, dysphagia/cricopharyngeal achalasia -- Encouraged PO. Continue PPI. EGD and colonoscopy as outpt. Justicifation of Admission Dx: Justifications for Admission: Justification of Admission Dx: Yes CHF: Cardiac Arrhythmias MADI RAPP Nov 17, 2019 12:05
--- NOTE | 2019-11-17 12:35 | PDOC ---
DEBBY TILLMAN FIELD SERVICE REPRESENTATIVE 11/17/19 1235: CARDIO Progress Notes Date and Time Date of Service 11/17/19 Time of Evaluation 1151 Subjective Subjective: No Chest Pain, No shortness of breath, No Palpitations, No Dizziness Vitals Vitals Vital Signs Date Time Temp Pulse Resp B/P (MAP) Pulse Ox O2 Delivery O2 Flow Rate FiO2 11/17/19 10:40 97.6 65 18 123/69 (87) 98 Room Air 97.6 11/16/19 22:18 2.0 Weight Weight [ ] Input and Output Intake and Output Intake and Output 11/17/19 07:00 Intake Total 460 ml Output Total 1750 ml Balance -1290 ml Intake Oral 460 ml Output Urine Total 1750 ml # Bowel Movements 1 Laboratory Labs Laboratory Tests Test 11/16/19 17:01 11/16/19 21:07 11/17/19 05:26 11/17/19 07:18 Glucose (Fingerstick) 197 mg/dL (70-99) 156 mg/dL (70-99) 116 mg/dL (70-99) White Blood Count 6.4 x10^3/uL (4.0-11.0) Red Blood Count 2.63 x10^6/uL (4.30-5.70) Hemoglobin 8.4 g/dL (13.0-17.5) Hematocrit 24.5 % (39.0-53.0) Mean Corpuscular Volume 93 fL (79-100) Mean Corpuscular Hemoglobin 32 pg (25-35) Mean Corpuscular Hemoglobin Concent 34 g/dL (31-37) Red Cell Distribution Width 15.2 % (11.5-14.5) Platelet Count 188 x10^3/uL (140-400) Sodium Level 140 mmol/L (136-145) Potassium Level 3.7 mmol/L (3.5-5.1) Chloride Level 107 mmol/L (98-107) Carbon Dioxide Level 23 mmol/L (21-32) Anion Gap 10 (6-14) Blood Urea Nitrogen 43 mg/dL (8-26) Creatinine 1.8 mg/dL (0.7-1.3) Estimated GFR (Cockcroft-Gault) 36.9 BUN/Creatinine Ratio 24 (6-20) Glucose Level 111 mg/dL (70-99) Calcium Level 7.6 mg/dL (8.5-10.1) Total Bilirubin 0.8 mg/dL (0.2-1.0) Aspartate Amino Transf (AST/SGOT) 43 U/L (15-37) Alanine Aminotransferase (ALT/SGPT) 31 U/L (16-63) Alkaline Phosphatase 68 U/L (46-116) Total Protein 5.6 g/dL (6.4-8.2) Albumin 2.0 g/dL (3.4-5.0) Albumin/Globulin Ratio 0.6 (1.0-1.7) Test 11/17/19 11:16 Glucose (Fingerstick) 137 mg/dL (70-99) Physical Exam HEENT: Neck Supple W Full Motion Chest: Symmetric LUNGS: Other (diminished bases) Heart: S1S2, RRR (V-paced with underlying SR) Abdomen: Soft N/T Extremities: No Edema, Other (right BKA ) Neurology: alert, oriented, follow commands Assessment Assessment 1. Near syncope; in setting of hypotension, hypovolemia. resolved 2. Hypertension; controlled 3. Anemia; s/p PRBC's x2. Hgb remains stable 4. Hyperlipidemia; statin 5. 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 Device check with normal function, no significant arrhythmias. Recent echo with LV EF recovery 6. Acute on chronic systolic CHF; appears clinically compensated 7. CAD; s/p previous PCI/stent placement. 8. PAFIB; v-pace with underlying SR 9. DELVIS; improved 10. Right distal femur fracture; s/p ORIF 11. PAD; s/p right BKA 12. H/o high PVC burden Recommendations Resume Eliquis given h/o PAFIB and recent ORIF. Will use low-dose given anemia Secondary prevention measures No ASA therapy No antiHTN warranted as BP will not support Okay to discharge to rehab Follow up with primary business development analyst upon discharge Justicifation of Admission Dx: Justifications for Admission: Justification of Admission Dx: Yes CHF: Cardiac Arrhythmias SUNDAR BOYER MD 11/18/19 0817: CARDIO Progress Notes Plan Plan Late entry for 11/17/19 Pt. seen and examined. Agree with above ADULT EDUCATION PROFESSIONAL note. Supportive care. DEBBY TILLMAN APRN Nov 17, 2019 12:35 SUNDAR BOYER MD Nov 18, 2019 08:17
--- NOTE | 2019-11-17 14:01 | NUR ---
SS following up with discharge planning. [place], ; fax [phone], contacted SS and reported that transportation is scheduled for 1430. Pt will discharge today and go to [facility] at 1430. Pt's RN notified.
--- NOTE | 2019-11-17 15:12 | PDOC ---
Renal-Progress Notes Subjective Notes Notes NO NEW COMPLAINTS History of Present Illness Hx of present illness STABLE Vitals Vitals Vital Signs Date Time Temp Pulse Resp B/P (MAP) Pulse Ox O2 Delivery O2 Flow Rate FiO2 11/17/19 10:40 97.6 65 18 123/69 (87) 98 Room Air 97.6 11/16/19 22:18 2.0 Weight Weight [ ] I.O. Intake and Output Intake and Output 11/17/19 07:00 Intake Total 460 ml Output Total 1750 ml Balance -1290 ml Intake Oral 460 ml Output Urine Total 1750 ml # Bowel Movements 1 Labs Labs Laboratory Tests Test 11/16/19 17:01 11/16/19 21:07 11/17/19 05:26 11/17/19 07:18 Glucose (Fingerstick) 197 mg/dL (70-99) 156 mg/dL (70-99) 116 mg/dL (70-99) White Blood Count 6.4 x10^3/uL (4.0-11.0) Red Blood Count 2.63 x10^6/uL (4.30-5.70) Hemoglobin 8.4 g/dL (13.0-17.5) Hematocrit 24.5 % (39.0-53.0) Mean Corpuscular Volume 93 fL (79-100) Mean Corpuscular Hemoglobin 32 pg (25-35) Mean Corpuscular Hemoglobin Concent 34 g/dL (31-37) Red Cell Distribution Width 15.2 % (11.5-14.5) Platelet Count 188 x10^3/uL (140-400) Sodium Level 140 mmol/L (136-145) Potassium Level 3.7 mmol/L (3.5-5.1) Chloride Level 107 mmol/L (98-107) Carbon Dioxide Level 23 mmol/L (21-32) Anion Gap 10 (6-14) Blood Urea Nitrogen 43 mg/dL (8-26) Creatinine 1.8 mg/dL (0.7-1.3) Estimated GFR (Cockcroft-Gault) 36.9 BUN/Creatinine Ratio 24 (6-20) Glucose Level 111 mg/dL (70-99) Calcium Level 7.6 mg/dL (8.5-10.1) Total Bilirubin 0.8 mg/dL (0.2-1.0) Aspartate Amino Transf (AST/SGOT) 43 U/L (15-37) Alanine Aminotransferase (ALT/SGPT) 31 U/L (16-63) Alkaline Phosphatase 68 U/L (46-116) Total Protein 5.6 g/dL (6.4-8.2) Albumin 2.0 g/dL (3.4-5.0) Albumin/Globulin Ratio 0.6 (1.0-1.7) Test 11/17/19 11:16 Glucose (Fingerstick) 137 mg/dL (70-99) Review of Systems Constitutional: yes: weakness, alert Ears/Nose/Throat: Yes: no symptom reported Eyes: Yes: no symptom reported Pulmonary: Yes no symptom reported Cardiovascular: Yes no symptom reported Gastrointestional: Yes: nausea Genitourinary: Yes: no symptom reported Musculoskeletal: Yes: muscle stiffness Skin: Yes no symptom reported Psychiatric/Neurological: Yes: no symptom reported Endocrine: Yes: no symptom reported Physical Exam General Appearance: no apparent distress Skin: warm Respiratory: bilateral CTA Heart: S1S2 Abdomen: soft, bowel sounds present Genitourinary: bladder flat Neurology: alert, oriented, follow commands Musculoskeletal: Osteoarthritis Assessment Assessment IMP NEAR SYNCOPE CKD STAGE 3-CR STABLE AT 1.8 HTN HX ACUTE AND CHRONIC SHF-BETTER HX OF CAD AND AFIB DYSPHAGIA PLAN CARDIOLOGY AND GI EVAL DIURESE NEEDED WILL FOLLOW ACOSTA TAPIA MD Nov 17, 2019 15:12
--- NOTE | 2019-11-17 15:40 | NUR ---
Discharge Note: YOVANI FAUST Discharge instructions and discharge home medications reviewed with Other facility and a copy given. All questions have been answered and understanding verbalized. The following instructions and handouts were given: medication and discharge instructions were in packet. ortho doctor will call pt with follow up appointment Discontinued lines and drains: discontinued peripheral iv Patient discharged to SNU via wheelchair accompanied by transport and spouse
--- NOTE | 2019-12-18 10:48 | DS ---
DATE OF DISCHARGE: 11/17/2019 HOSPITAL COURSE: The patient is a 74-year-old male patient who was originally admitted on 11/09/2019. He apparently was seen at [facility] with a complaint of dizziness and lightheadedness. He was evaluated and he was on his way to go home. He was offered a wheelchair, but he declined and unfortunately, he fell and sustained right distal femur fracture. We did contact Dr. Garza who recommended transferring the [facility]. He was swabbed for COVID test to be available before since surgery. It was ultimately negative and he was seen by the orthopedic surgeon and underwent open reduction and internal fixation of his right intra-articular distal femur fracture. His postoperative period was complicated by blood loss anemia, acute heart failure, and acute hypoxic respiratory failure. He did receive 2 units of packed RBCs and he was seen in consultation by the director medical, the radius grinder as well as the sales and leasing consultant. His pacemaker was interrogated and apparently was found to function. He has had multiple syncopal episodes. His kidney function also was impaired; however, it stabilized. His BUN came down from 60 to 43 and his creatinine has unfortunately worsened up to 3.2 and came back down to his baseline of about 1.8. Once he stabilized with stable H and H, a decision was made to discharge him to [facility] to continue the process of rehabilitation. PHYSICAL EXAMINATION: GENERAL: On the day of discharge, he looked well and was clearly in no apparent respiratory distress. He was pale, no jaundice, cyanosis or thyromegaly. No jugular venous distention. No limb edema. VITAL SIGNS: His heart rate was 65, blood pressure was 123/69, temperature was 97.6, respiratory rate was 18 and oxygen saturation was 98%. HEAD, EYES, EARS, NOSE AND THROAT: Showed normocephalic, atraumatic. NECK: Supple. CARDIAC: Normal first and second heart sound. No gallop, rub or murmur. CHEST: Clear to auscultation. No crepitation or rhonchi. ABDOMEN: Distended, soft, nontender. NEUROLOGIC: He was awake, alert, responding appropriately. All cranial nerves are intact. He moves upper extremities without difficulty. He has right below knee amputation and his surgical wound is covered with dressing. He continues to be nonweightbearing. His intake and output were incompletely recorded. LABORATORY DATA: His lab work on the day of discharge showed serum sodium was 140, his potassium was 3.7, chloride 107, bicarbonate 23, anion gap of 10, BUN 43, creatinine 1.8, estimated GFR was 37 mL per minute, his glucose 111, calcium was 7.6. Total bilirubin, AST, ALT, alkaline phosphatase were normal. Total protein was 5.6, albumin 2. His white cell count was 6400, hemoglobin 8.4, hematocrit 24, MCV 93, and platelet count of 188,000. DISCHARGE MEDICATIONS: He was discharged to [facility] to continue on his medications. FINAL DISCHARGE DIAGNOSES: 1. Fall, sustaining right closed intra-articular distal femur fracture, status post open reduction and internal fixation using Garcia [employer]hew lateral distal femoral locking plate. 2. Acute kidney injury with creatinine that has risen up to 3.7 now back to the baseline of 1.8. 3. Acute blood loss anemia with hemoglobin and hematocrit has dropped down to 6.5 and 19.4. He received 2 units of packed RBCs and most recent hemoglobin was 8.4 and hematocrit 24. 4. The patient has multiple other medical problems including: A. Combined ischemic and nonischemic cardiomyopathy, clinically well compensated. B. Coronary artery disease, status post percutaneous coronary intervention with stent deployment, currently chest pain free. C. Peripheral arterial disease. D. Chronic kidney disease. E. Hypertension. F. Atrial fibrillation. G. Transient ischemic attack. 5. The patient has bilateral pleural effusion, possible pneumonia involving his right upper and lower lobe, for which he was treated with Zyvox and Zosyn. NIKKO BEASLEY MD DR: PETER/rossi JOB#: [id number] / [id number]
== END 2019-11-17 15:10 | DRG 480 ==
LOC: 4 NORTH 19:29 → 2 SOUTH 11-10 17:45
PROVIDERS: ADMIT Internal Medicine; ATTEND Internal Medicine
PROC: 0QSB04Z Reposition Right Lower Femur with Internal Fixation Device, Open Approach (ICD-10-PCS; principal; 2019-11-09 14:03)
PROC: 30233N1 Transfusion of Nonautologous Red Blood Cells into Peripheral Vein, Percutaneous Approach (ICD-10-PCS; 2019-11-11)
DX: S72.491A Other fracture of lower end of right femur, initial encounter for closed fracture (principal); E43 Unspecified severe protein-calorie malnutrition; I50.43 Acute on chronic combined systolic (congestive) and diastolic (congestive) heart failure; D62 Acute posthemorrhagic anemia; J98.11 Atelectasis; I42.8 Other cardiomyopathies; I13.0 Hypertensive heart and chronic kidney disease with heart failure and stage 1 through stage 4 chronic kidney disease, or unspecified chronic kidney disease; N17.9 Acute kidney failure, unspecified; I49.5 Sick sinus syndrome; I48.0 Paroxysmal atrial fibrillation; E11.22 Type 2 diabetes mellitus with diabetic chronic kidney disease; E11.51 Type 2 diabetes mellitus with diabetic peripheral angiopathy without gangrene; E66.01 Morbid (severe) obesity due to excess calories; E78.5 Hyperlipidemia, unspecified; E86.1 Hypovolemia; E89.0 Postprocedural hypothyroidism; G50.0 Trigeminal neuralgia; G62.9 Polyneuropathy, unspecified; I25.10 Atherosclerotic heart disease of native coronary artery without angina pectoris; I25.5 Ischemic cardiomyopathy; K21.9 Gastro-esophageal reflux disease without esophagitis; K44.9 Diaphragmatic hernia without obstruction or gangrene; K59.00 Constipation, unspecified; N18.3 Chronic kidney disease, stage 3 (moderate); R13.14 Dysphagia, pharyngoesophageal phase; S80.02XA Contusion of left knee, initial encounter; W01.0XXA Fall on same level from slipping, tripping and stumbling without subsequent striking against object, initial encounter; Y92.238 Other place in hospital as the place of occurrence of the external cause; I95.9 Hypotension, unspecified; Z96.41 Presence of insulin pump (external) (internal); M19.90 Unspecified osteoarthritis, unspecified site; Z79.01 Long term (current) use of anticoagulants; Z79.4 Long term (current) use of insulin; Z82.5 Family history of asthma and other chronic lower respiratory diseases; Z86.73 Personal history of transient ischemic attack (TIA), and cerebral infarction without residual deficits; Z89.511 Acquired absence of right leg below knee; Z95.5 Presence of coronary angioplasty implant and graft; Z95.810 Presence of automatic (implantable) cardiac defibrillator; Z98.1 Arthrodesis status; Z79.899 Other long term (current) drug therapy; Y93.89 Activity, other specified; Y99.8 Other external cause status; Z88.8 Allergy status to other drugs, medicaments and biological substances; Z68.35 Body mass index [BMI] 35.0-35.9, adult
CPT/HCPCS: 36415; 36600; 70450; 71045; 71250; 74176; 74220; 74230; 76000; 80048; 80053; 82550; 82805; 82962; 83880; 84100; 84443; 84484; 85007; 85014; 85018; 85025; 85027; 86850; 86900; 86901; 86920; 93005; 93970; 94640; A7015; C1713; C9113; J0690; J1815; J1940; J2020; J2270; J2370; J2405; J2543; J2704; J3490; J7030; J7040; J7042; P9016; 92610-GN; 92611-GN; 97110-GP; 97530-GO; 97530-GP; 97535-GO; G0378; Q0167